=== PATIENT | female | born 1955 | race Caucasian/White ===

== ENCOUNTER 2017-09-22 08:57 | Inpatient (IN) | payer OTHER ==
--- NOTE | 2017-09-22 09:36 | PDOC ---
History of Present Illness - General Chief Complaint: Shortness of Breath Stated Complaint: SOB Time Seen by Provider: 09/22/17 09:17 History Source: Patient Exam Limitations: No Limitations - History of Present Illness Initial Comments: 09/22/17 09:36 62y F hx of COPD, seizures, hypothyroidism, htn, ?Adrenal insufficiency with recent dx of bronchitis, started on azithromycin and predinsone at urgent care, but with worsening sob, productive cough of yellowish sputum and dyspnea on exertion. Pt states her albuterol helps her for a short period of time, but as her sypmtoms have not substatially inproved she presented today. Pt endorses some nasal congestion, also notes her boss was sick a few weeks ago. No recent travel. Pt denies any abdominal pain. No fevers/chills. Pt denies any leg swelling,hemoptysis. Pt works notes the sob makes it difficult to work Pulm: Dr. Bustillo PMD: Dr. Benja Teixeira smokin pack year smoking history Past History - Past Medical History Allergies/Adverse Reactions: Allergies Allergy/AdvReac Type Severity Reaction Status Date / Time No Known Allergies Allergy Verified 09/22/17 08:58 Home Medications: Ambulatory Orders Anastrozole [Arimidex -] 1 mg PO DAILY 09/22/17 Aspirin [ASA -] 81 mg PO DAILY 09/22/17 Cyclobenzaprine HCl [Flexeril -] 10 mg PO TID 09/22/17 Divalproex Sodium [Depakote] 1,000 mg PO DAILY 09/22/17 Divalproex Sodium [Depakote] 1,500 mg PO HS 09/22/17 Escitalopram Oxalate [Lexapro -] 5 mg PO DAILY 09/22/17 Hydrocortisone [Cortef -] 5 mg PO DAILY 09/22/17 Levothyroxine Sodium [Synthroid] 137 mcg PO DAILY 09/22/17 Loratadine [Claritin] 10 mg PO DAILY 09/22/17 Omeprazole Magnesium [Prilosec Otc] 20 mg PO DAILY 09/22/17 Oxycodone HCl/Acetaminophen [Endocet 5-325 Tablet] 1 each PO TID PRN 09/22/17 Salmeterol/Fluticasone [Advair 500Mcg/50Mcg] 1 inh PO BID 09/22/17 levETIRAcetam [Keppra -] 500 mg PO BID 09/22/17 Anemia: No Asthma: No Cancer: Yes (RIGHT BREAST-DX 03/01) Cardiac Disorders: No CVA: No COPD: Yes CHF: No Dementia: No Diabetes: No GI Disorders: Yes (GERD) Disorders: Yes (URGE INCONTINENCE,CHRONIC CONSTIPATION) HTN: Yes Hypercholesterolemia: No Liver Disease: No Seizures: Yes (LAST SEIZURE 2005) Thyroid Disease: Yes (HYPOTHYROIDISM) - Surgical History Abdominal Surgery: No Appendectomy: No Cardiac Surgery: No Cholecystectomy: No Lung Surgery: No Neurologic Surgery: No Orthopedic Surgery: Yes (DISC SUGERY-1984, SPINAL FUSION) - Suicide/Smoking/Psychosocial Hx Smoking Status: Yes Smoking History: Former smoker Have you smoked in the past 12 months: Yes Number of Cigarettes Smoked Daily: 20 If you are a former smoker, when did you quit?: 01/2016 'Breaking Loose' booklet given: 04/11/16 Hx Alcohol Use: Yes (Social) Drug/Substance Use Hx: No Substance Use Type: Alcohol Hx Substance Use Treatment: No Review of Systems - Review of Systems Able to Perform ROS?: Yes Comments:: 09/22/17 10:05 Constitutional - no reported Fever, Chills, HEENT: no reported vision changes, sore throat Respiratory: +cough, sob, no reported hemoptysis Cardiac: no reported chest pain, palpitations, light headedness, leg swelling Abd/GI: no reported abd pain, nausea, vomiting, blood per rectum, melena, diarrhea : no reported dysuria, frequency, discharge Musculskelatal - no reported back pain, joint swelling skin - no reported bruising, erythema, rash neurological: no reported headache, numbness, focal weakness, tingling, ataxia, hematologic: no reported anemia, easy bruising, easy bleeding *Physical Exam - Physical Exam Comments: 09/22/17 10:07 GENERAL: The patient is awake, alert, and fully oriented, Nontoxic - in no acute distress. HEAD: Normocephalic, atraumatic. EYES: extraocular movements intact, sclera anicteric, conjunctiva clear. ENT: Normal voice, Moist mucous membranes. NECK: Normal range of motion, supple LUNGS: wheezing diffusely with occasional rhonchi, to speak complete sentences, no acute respiratory distress HEART: Regular rate and rhythm, normal S1 and S2 without murmur, rub or gallop. ABDOMEN: Soft, nontender, normoactive bowel sounds. No guarding, no rebound. EXTREMITIES: Normal range of motion, no edema. no calf tenderness, negative Homans sign NEUROLOGICAL: No facial assymetry, Normal speech, moving all 4 extremities symmetrically PSYCH: Normal mood, normal affect. SKIN: Warm, Dry, normal turgor, Heart Score/ECG Review - ECG Impressions Comment:: 09/22/17 12:51 Twelve-lead EKG was performed and reviewed by me. There is normal sinus rhythm with a normal rate. Rate of 69 The axis is normal. ED Treatment Course - LABORATORY CBC & Chemistry Diagram: 09/22/17 10:05 09/22/17 10:05 Medical Decision Making - Medical Decision Making 09/22/17 10:08 62-year-old female multiple medical problems presenting with 2-1/2 weeks of worsening shortness breath, cough productive of yellowish sputum without associated fevers, seated as an outpatient by a urgent care without improvement with course of steroids and oral antibiotics. On exam the patient does have wheezing diffusely and occasional rhonchi vitls noted for hypxoia to 88-93% on RA suspect copd exacerbation vs pna will give solumedrol, albuterol will ck labs ekg 09/22/17 11:36 cxr shows no acute infilitrates, but some signs of atelectasis labs noted, no leukocytosis, trop neg pt feeling improved with nebs pt noted hypxic to 95% case discussed with AIDAN Wood, agree with admission for inpatient for management of copd Case discussed in detail with admitting physician including history, physical exam and ancillary studies. Admitting physician has assumed care for the patient, will follow all pending diagnostics and will complete the evaluation and treatment. *DC/Admit/Observation/Transfer Diagnosis at time of Disposition: COPD with exacerbation - Discharge Dispostion Condition at time of disposition: Guarded Admit: Yes - Referrals - Patient Instructions - Post Discharge Activity
[2017-09-22] MEDS ORDERED: ALBUTEROL SO4 2.5/IPRATROPIUM 0.5 INH SOL 3 ML VIAL.NEB. NEB ONE ×3 (09:44→14:15)
[2017-09-22] MEDS ORDERED: methylPREDNISolone NA SUCC 125 MG/2 ML VIAL IVPUSH ONE (10:05)
[2017-09-22] MEDS ORDERED: ACETAMINOPHEN 325 MG TABLET (FP) PO ONE (10:05)
[2017-09-22] MEDS ORDERED: ACETAMINOPHEN 325 MG TABLET (FP) ONE (10:15)
[2017-09-22] MEDS ORDERED: methylPREDNISolone NA SUCC 125 MG/2 ML VIAL ONE (10:15)
[2017-09-22 10:40] LABS: BASO % 0.1 % (0-2.0); EOS % 0.1 % (0-4.5); HEMOGLOBIN 15.8 GM/dl (10.7-15.3); MCH 33.1 pg (25.7-33.7); MCHC 34.4 g/dl (32.0-36.0); MEAN CELL VOLUME 96.1 fl (80-96); MEAN PLT VOLUME 6.8 fl (7.5-11.1); MONO % 4.9 % (3.8-10.2); NEUT % 73.9 % (42.8-82.8); PLATELET COUNT 327 K/MM3 (134-434); RBC 4.79 M/mm3 (3.60-5.2); RDW 13.6 % (11.6-15.6)
[2017-09-22 10:48] LABS: INR 1.01 (0.82-1.09); PROTHROMBIN TIME (PATIENT) 11.3 SEC (10.2-13.0)
[2017-09-22 10:51] LABS: ALBUMIN 3.9 g/dl (3.5-5.0); ALK PHOS 47 U/L (32-92); ANION GAP 8 (8-16); BILIRUBIN,TOTAL 0.8 mg/dl (0.2-1.0); BLOOD UREA NITROGEN 14 mg/dl (7-18); CALCIUM 9.6 mg/dl (8.4-10.2); CHLORIDE 95 mmol/L (98-107); CO2 27 mmol/L (22-28); GLUCOSE,RANDOM 127 mg/dl (74-106); POTASSIUM 4.5 mmol/L (3.5-5.1); SGOT/AST 21 U/L (10-42); SGPT/ALT 15 U/L (10-40); SODIUM 130 mmol/L (136-145); TOT PROT 6.9 g/dl (6.4-8.3)
[2017-09-22 11:12] LABS: CREATININE < 0.8 mg/dl (0.6-1.3)
[2017-09-22 11:26] LABS: VENOUS PC02 42.6 mmHg (38-52); VENOUS PH 7.44 (7.32-7.42)
--- NOTE | 2017-09-22 12:41 | HP ---
CHIEF COMPLAINT: shortness of breath PCP: Dr Suárez pulm: Dr Richardson HISTORY OF PRESENT ILLNESS: Patient is a 62y F hx of COPD, seizures, right breast CA (s/p reconstruction), hypothyroidism, htn, chronic lumbar disc disease, and Adrenal insufficiency. Patient reports with increasingly shortness of breath and cough for the past 2 weeks. Patient was evaluated in urgent care 2 weeks ago and started on zithromax and prednisone. She reports ongoing shortness of breath and dyspnea upon exertion, patient was re-evaluated again at urgent care and was restarted on prednisone. She reports ongoing shortness of breath with worsening of dyspne upon exertion. 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 Smoking: quiit 25 years ago Alcohol:none Drugs: none Family History: non contributory Allergies No Known Allergies Allergy (Verified 09/22/17 08:58) HOME MEDICATIONS: Home Medications Medication Instructions Recorded Anastrozole [Arimidex -] 1 mg PO DAILY 09/22/17 Aspirin [ASA -] 81 mg PO DAILY 09/22/17 Cyclobenzaprine HCl [Flexeril -] 10 mg PO TID 09/22/17 Divalproex Sodium [Depakote] 1,000 mg PO DAILY 09/22/17 Divalproex Sodium [Depakote] 1,500 mg PO HS 09/22/17 Escitalopram Oxalate [Lexapro -] 5 mg PO DAILY 09/22/17 Hydrocortisone [Cortef -] 5 mg PO DAILY 09/22/17 Levothyroxine Sodium [Synthroid] 137 mcg PO DAILY 09/22/17 Loratadine [Claritin] 10 mg PO DAILY 09/22/17 Omeprazole Magnesium [Prilosec Otc] 20 mg PO DAILY 09/22/17 Oxycodone HCl/Acetaminophen 1 each PO TID PRN 09/22/17 [Endocet 5-325 Tablet] Salmeterol/Fluticasone [Advair 1 inh PO BID 09/22/17 500Mcg/50Mcg] levETIRAcetam [Keppra -] 500 mg PO BID 09/22/17 REVIEW OF SYSTEMS CONSTITUTIONAL: Absent: fever, chills, diaphoresis, generalized weakness, malaise, loss of appetite, weight change HEENT: Absent: rhinorrhea, nasal congestion, throat pain, throat swelling, difficulty swallowing, mouth swelling, ear pain, eye pain, visual changes CARDIOVASCULAR: Absent: chest pain, syncope, palpitations, irregular heart rate, lightheadedness , peripheral edema RESPIRATORY: Present: cough, shortness of breath, dyspnea with exertion Absent: orthopnea, wheezing, stridor, hemoptysis GASTROINTESTINAL: Absent: abdominal pain, abdominal distension, nausea, vomiting, diarrhea, constipation, melena, hematochezia GENITOURINARY: Absent: dysuria, frequency, urgency, hesitancy, hematuria, flank pain, genital pain MUSCULOSKELETAL: Absent: myalgia, arthralgia, joint swelling, back pain, neck pain SKIN: Absent: rash, itching, pallor HEMATOLOGIC/IMMUNOLOGIC: Absent: easy bleeding, easy bruising, lymphadenopathy, frequent infections ENDOCRINE: Absent: unexplained weight gain, unexplained weight loss, heat intolerance, cold intolerance NEUROLOGIC: Absent: headache, focal weakness or paresthesias, dizziness, unsteady gait, seizure, mental status changes, bladder or bowel incontinence PSYCHIATRIC: Absent: anxiety, depression, suicidal or homicidal ideation, hallucinations. PHYSICAL EXAMINATION Vital Signs - 24 hr 09/22/17 09/22/17 09/22/17 08:58 11:15 11:21 Temperature 97.9 F Pulse Rate 91 H 63 Pulse Rate [ 63 Right] Respiratory 20 20 Rate Blood Pressure 170/89 Blood Pressure 138/77 [Left Arm] O2 Sat by Pulse 93 L 96 96 Oximetry (%) GENERAL: Awake, alert, and fully oriented, in no acute distress. HEAD: Normal with no signs of trauma. EYES: Pupils equal, round and reactive to light, extraocular movements intact, sclera anicteric, conjunctiva clear. No lid lag. EARS, NOSE, THROAT: Ears normal, nares patent, oropharynx clear without exudates. Moist mucous membranes. NECK: Normal range of motion, supple without lymphadenopathy, JVD, or masses. LUNGS: Breath sounds equal, course rhonchi to apexes with mild inspiratory wheeze, diminished to bases, and no crackles. No accessory muscle use. HEART: Regular rate and rhythm, normal S1 and S2 without murmur, rub or gallop. ABDOMEN: Soft, nontender, not distended, normoactive bowel sounds, no guarding, no rebound, no masses. No hepatomegaly or splenomegaly. MUSCULOSKELETAL: Normal range of motion at all joints. No bony deformities or tenderness. No CVA tenderness. UPPER EXTREMITIES: 2+ pulses, warm, well-perfused. No cyanosis. No clubbing. No peripheral edema. LOWER EXTREMITIES: 2+ pulses, warm, well-perfused. No calf tenderness. No peripheral edema. NEUROLOGICAL: Cranial nerves II-XII intact. Normal speech. Normal gait. PSYCHIATRIC: Cooperative. Good eye contact. Appropriate mood and affect. SKIN: Warm, dry, normal turgor, no rashes or lesions noted, normal capillary refill. Laboratory Results - last 24 hr 09/22/17 09/22/17 09/22/17 10:05 10:05 10:05 WBC 10.0 D RBC 4.79 D Hgb 15.8 H D Hct 46.0 H D MCV 96.1 H MCH 33.1 MCHC 34.4 RDW 13.6 Plt Count 327 MPV 6.8 L Neutrophils % 73.9 Lymphocytes % 21.0 Monocytes % 4.9 Eosinophils % 0.1 Basophils % 0.1 PT with INR 11.3 INR 1.01 VBG pH POC VBG pCO2 POC VBG pO2 Mixed VBG HCO3 Sodium 130 L Potassium 4.5 Chloride 95 L Carbon Dioxide 27 Anion Gap 8 BUN 14 D Creatinine < 0.8 D Creat Clearance w eGFR > 60 Random Glucose 127 H Calcium 9.6 Total Bilirubin 0.8 D AST 21 D ALT 15 D Alkaline Phosphatase 47 D Creatine Kinase Troponin I Total Protein 6.9 D Albumin 3.9 D 09/22/17 09/22/17 09/22/17 10:05 10:05 10:10 WBC RBC Hgb Hct MCV MCH MCHC RDW Plt Count MPV Neutrophils % Lymphocytes % Monocytes % Eosinophils % Basophils % PT with INR INR VBG pH 7.44 H POC VBG pCO2 42.6 POC VBG pO2 46.0 Mixed VBG HCO3 28.1 H Sodium Potassium Chloride Carbon Dioxide Anion Gap BUN Creatinine Creat Clearance w eGFR Random Glucose Calcium Total Bilirubin AST ALT Alkaline Phosphatase Creatine Kinase 62 Troponin I < 0.03 Total Protein Albumin ASSESSMENT/PLAN: F/E/N - low sodium diet - replete lytes prn ppx - lovenox - ppi - scd -oob dispo: pt requires inpatient admission Problem List - Problem (1) Hypothyroidism Assessment/Plan: - pending tsh, continue home medication Code(s): E03.9 - HYPOTHYROIDISM, UNSPECIFIED Qualifiers: Hypothyroidism type: unspecified Qualified Code(s): E03.9 - Hypothyroidism , unspecified (2) GERD (gastroesophageal reflux disease) Assessment/Plan: - continue ppi Code(s): K21.9 - GASTRO-ESOPHAGEAL REFLUX DISEASE WITHOUT ESOPHAGITIS Qualifiers: Esophagitis presence: without esophagitis Qualified Code(s): K21.9 - Gastro -esophageal reflux disease without esophagitis (3) Lumbar disc disease Assessment/Plan: - continue percocet (home dose) Code(s): M51.9 - UNSP THORACIC, THORACOLUM AND LUMBOSACR INTVRT DISC DISORDER (4) COPD with exacerbation Assessment/Plan: -failed outpatient prednsione, pt remains hypoxic with wheezing, start solumedrol 40mg q6h with taper as appropriate, continue symbicort (subsitue for advair) and spiriva - keep spo2 above 92% with supplemental O2 - pending ct scan of chest, prior hx of right upper lobe pulm nodule - appreciate pulmonary input (Dr Jefferson) 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 Code(s): J44.1 - CHRONIC OBSTRUCTIVE PULMONARY DISEASE W (ACUTE) EXACERBATION (5) Breast cancer, right breast Assessment/Plan: - in remission continue armidex Code(s): C50.911 - MALIGNANT NEOPLASM OF UNSP SITE OF RIGHT FEMALE BREAST Qualifiers: Breast location: upper outer quadrant of breast (6) Hypertension Assessment/Plan: - no home medication as per patient, monitor b/p q4h Code(s): I10 - ESSENTIAL (PRIMARY) HYPERTENSION Qualifiers: Hypertension type: essential hypertension Qualified Code(s): I10 - Essential (primary) hypertension (7) Seizure disorder Assessment/Plan: - continue depakote and keppra Code(s): G40.909 - EPILEPSY, UNSP, NOT INTRACTABLE, WITHOUT STATUS EPILEPTICUS Visit type - Emergency Visit Emergency Visit: Yes ED Registration Date: 09/22/17 Care time: The patient presented to the Emergency Department on the above date and was hospitalized for further evaluation of their emergent condition. - New Patient This patient is new to me today: No - Critical Care Critical Care patient: No Hospitalist Screening - Colonoscopy Questionnaire Colonoscopy Questionnaire: Colonoscopy Questionnaire - Patient: 50 - 75 years old and never had a screening colonoscopy: No History of colon or rectal polyps, or CA: No History of IBD, Crohn's disease or UC: No History of abdominal radiation therapy as a child: No - Relative: 1 with colon or rectal CA, or polyps at age 60 or younger: No Colon or rectal CA diagnosed at age 45 or younger: No Multiple relatives with colon or rectal CA: No - Outcome: Screening Result: Negative Screen
[2017-09-22] MEDS ORDERED: CYCLOBENZAPRINE HCL 10 MG TABLET (FP) PO PRN (12:42)
[2017-09-22 13:40] LABS: URINE APPEARANCE Clear; URINE BILIRUBIN Negative (NEGATIVE); URINE BLOOD Negative (NEGATIVE); URINE GLUCOSE (UA) Negative (NEGATIVE); URINE KETONE Trace (NEGATIVE); URINE LEUK ESTERASE Negative (NEGATIVE); URINE NITRITE Negative (NEGATIVE); URINE PROTEIN Negative (NEGATIVE)
[2017-09-22 13:41] LABS: URINE COLOR YELLOW
[2017-09-22 14:13] VITALS: BMI 25.6
[2017-09-22] MEDS: methylPREDNISolone NA SUCC 40 MG/1 ML VIAL IVPUSH SCH ×2 (16:13→21:49)
[2017-09-22] MEDS ORDERED: PT OWN MED DRAWER 7, Y5N ONE ×2 (16:52→21:42)
[2017-09-22] MEDS: TIOTROPIUM BROMIDE 18 MCG/INH (DEVICE W/ 5 CAPSULES) IH SCH (17:12)
--- NOTE | 2017-09-22 17:25 | PN ---
Progress Note (short form) - Note Progress Note: Pulmonary Full consult to follow. 62y/o female with AECOPD, hx breast ca and epilepsy. History smoking. CT chest 08/05/2017: 5.7 mm RUL nodule not present on 04/11/2016 CT today-?slightly smaller RUL nodule. Agree with plan for bronchodilators, antibiotic, systemic steroids with tapering and O2 to maintain SaO2 >90 Lung nodule could be neoplastic or inflammatory. It is too small to visualize on PET scan therefore would repeat CT in three months.
[2017-09-22] MEDS: levETIRAcetam 500 MG TABLET (FP) PO SCH (21:49)
[2017-09-22] MEDS: DIVALPROEX SODIUM 500 MG TABLET E.C. PO SCH (21:49)
[2017-09-22] MEDS: BUDESONIDE/FORMETEROL FUMARATE 160/4.5 mcg INHALER IH SCH (21:49)
[2017-09-22] MEDS ORDERED: PATIENT'S OWN MEDICATION (NON-FORMULARY) (Salmeterol/Fluticasone [Advair 500mcg/50mcg -] 1 PO SCH (22:00)
[2017-09-23] MEDS: methylPREDNISolone NA SUCC 40 MG/1 ML VIAL IVPUSH SCH ×4 (02:46→21:07)
[2017-09-23] MEDS ORDERED: LEVOTHYROXINE NA 25 MCG TABLET (FP) ONE (06:26)
[2017-09-23] MEDS ORDERED: LEVOTHYROXINE NA 112 MCG TABLET (FP) ONE (06:27)
[2017-09-23] MEDS ORDERED: LEVOTHYROXINE 112 MCG, LEVOTHYROXINE 25 MCG PO SCH (07:00)
[2017-09-23 07:53] LABS: PLATELET COUNT 340 K/MM3 (134-434)
[2017-09-23 07:56] LABS: BASO % 0.9 % (0-2.0); HEMATOCRIT 48.8 % (32.4-45.2); LYMPH % 12.3 % (8-40); MCH 33.8 pg (25.7-33.7); MCHC 34.8 g/dl (32.0-36.0); MEAN CELL VOLUME 97.2 fl (80-96); MEAN PLT VOLUME 6.5 fl (7.5-11.1); MONO % 6.9 % (3.8-10.2); NEUT % 79.9 % (42.8-82.8); RBC 5.02 M/mm3 (3.60-5.2); RDW 13.7 % (11.6-15.6); WHITE BLOOD COUNT 15.5 K/mm3 (4.0-10.8)
[2017-09-23 08:26] LABS: ALBUMIN 3.8 g/dl (3.5-5.0); ALK PHOS 47 U/L (32-92); ANION GAP 8 (8-16); BILIRUBIN,TOTAL 0.5 mg/dl (0.2-1.0); BLOOD UREA NITROGEN 17 mg/dl (7-18); CALCIUM 9.7 mg/dl (8.4-10.2); CHLORIDE 98 mmol/L (98-107); CO2 27 mmol/L (22-28); CREATININE 0.5 mg/dl (0.6-1.3); GLUCOSE,RANDOM 127 mg/dl (74-106); PHOSPHOROUS 3.4 mg/dl (2.5-4.6); POTASSIUM 4.1 mmol/L (3.5-5.1); SGOT/AST 16 U/L (10-42); SGPT/ALT 13 U/L (10-40); SODIUM 133 mmol/L (136-145); TOT PROT 6.7 g/dl (6.4-8.3)
--- NOTE | 2017-09-23 08:29 | PN ---
Physical Exam: SUBJECTIVE: Patient seen and examined sitting on edge of bed. Spoke with daughter Zoey over the phone. Patient states this exacerbation is worse than previous. Has been experiencing lower extremity swelling, orthopnea, and ANNE. Denies any cardiac history. OBJECTIVE: Vital Signs Period Temp Pulse Resp BP Sys/Kim Pulse Ox Last 24 Hr 97.7 F-98.5 F 60-91 18-20 126-170/61-89 93-96 GENERAL: The patient is awake, alert, and fully oriented, in no acute distress. LUNGS: Diffuse wheezing HEART: Regular rate and rhythm, S1, S2 ABDOMEN: Soft, nontender, nondistended, normoactive bowel sounds EXTREMITIES: 2+ pulses, warm, well-perfused, no edema. NEUROLOGICAL: Cranial nerves II through XII grossly intact. Normal speech, gait not observed. Laboratory Results - last 24 hr 09/22/17 09/22/17 09/22/17 10:05 10:05 10:05 WBC 10.0 D RBC 4.79 D Hgb 15.8 H D Hct 46.0 H D MCV 96.1 H MCH 33.1 MCHC 34.4 RDW 13.6 Plt Count 327 MPV 6.8 L Neutrophils % 73.9 Lymphocytes % 21.0 Monocytes % 4.9 Eosinophils % 0.1 Basophils % 0.1 PT with INR 11.3 INR 1.01 VBG pH POC VBG pCO2 POC VBG pO2 Mixed VBG HCO3 Sodium 130 L Potassium 4.5 Chloride 95 L Carbon Dioxide 27 Anion Gap 8 BUN 14 D Creatinine < 0.8 D Creat Clearance w eGFR > 60 Random Glucose 127 H Calcium 9.6 Total Bilirubin 0.8 D AST 21 D ALT 15 D Alkaline Phosphatase 47 D Creatine Kinase Troponin I Total Protein 6.9 D Albumin 3.9 D Urine Color Urine Appearance Urine pH Ur Specific Chapman Urine Protein Urine Glucose (UA) Urine Ketones Urine Blood Urine Nitrite Urine Bilirubin Urine Urobilinogen Ur Leukocyte Esterase 09/22/17 09/22/17 09/22/17 10:05 10:05 10:10 WBC RBC Hgb Hct MCV MCH MCHC RDW Plt Count MPV Neutrophils % Lymphocytes % Monocytes % Eosinophils % Basophils % PT with INR INR VBG pH 7.44 H POC VBG pCO2 42.6 POC VBG pO2 46.0 Mixed VBG HCO3 28.1 H Sodium Potassium Chloride Carbon Dioxide Anion Gap BUN Creatinine Creat Clearance w eGFR Random Glucose Calcium Total Bilirubin AST ALT Alkaline Phosphatase Creatine Kinase 62 Troponin I < 0.03 Total Protein Albumin Urine Color Urine Appearance Urine pH Ur Specific [place] Urine Protein Urine Glucose (UA) Urine Ketones Urine Blood Urine Nitrite Urine Bilirubin Urine Urobilinogen Ur Leukocyte Esterase 09/22/17 09/23/17 13:15 07:47 WBC 15.5 H D RBC 5.02 Hgb 17.0 H Hct 48.8 H MCV 97.2 H MCH 33.8 H MCHC 34.8 RDW 13.7 Plt Count 340 MPV 6.5 L Neutrophils % 79.9 Lymphocytes % 12.3 Monocytes % 6.9 Eosinophils % 0.0 Basophils % 0.9 PT with INR INR VBG pH POC VBG pCO2 POC VBG pO2 Mixed VBG HCO3 Sodium Potassium Chloride Carbon Dioxide Anion Gap BUN Creatinine Creat Clearance w eGFR Random Glucose Calcium Total Bilirubin AST ALT Alkaline Phosphatase Creatine Kinase Troponin I Total Protein Albumin Urine Color Yellow Urine Appearance Clear Urine pH 8.0 Ur Specific [place] 1.015 Urine Protein Negative Urine Glucose (UA) Negative Urine Ketones Trace Urine Blood Negative Urine Nitrite Negative Urine Bilirubin Negative Urine Urobilinogen 1.0 Ur Leukocyte Esterase Negative Active Medications Generic Name Dose Route Start Last Admin Trade Name Freq PRN Reason Stop Dose Admin Albuterol Sulfate 1 amp 09/22/17 12:49 Ventolin 0.083% Nebulizer Soln - NEB Q4H PRN SHORTNESS OF BREATH Anastrozole 1 mg 09/23/17 10:00 Arimidex - PO DAILY [facility] Aspirin 81 mg 09/23/17 10:00 Asa - PO DAILY [facility] Budesonide/Formoterol Fumarate 2 puff 09/22/17 22:00 09/22/17 21:49 Symbicort 160/4.5mcg - IH 2 puff BID JORI Administration Cyclobenzaprine HCl 10 mg 09/22/17 12:42 Flexeril - PO TID PRN MUSCLE SPASMS Divalproex Sodium 1,000 mg 09/23/17 10:00 Depakote - PO DAILY [facility] Divalproex Sodium 1,500 mg 09/22/17 22:00 09/22/17 21:49 Depakote - PO 1,500 mg HS JORI Administration Enoxaparin Sodium 40 mg 09/23/17 10:00 Lovenox - SQ DAILY [facility] Escitalopram Oxalate 5 mg 09/23/17 10:00 Lexapro - PO DAILY [facility] Levofloxacin 750 mg in 150 mls @ 100 mls/hr 09/23/17 10:00 Levaquin 750 Mg Premixed Ivpb - IVPB DAILY JORI Levetiracetam 500 mg 09/22/17 22:00 09/22/17 21:49 Keppra - PO 500 mg BID JORI Administration Levothyroxine Sodium 112 mcg/ 137 mcg 09/23/17 07:00 09/23/17 06:33 Levothyroxine Sodium 25 mcg PO 137 mcg DAILY@0700 JORI Administration Loratadine 10 mg 09/23/17 10:00 Claritin - PO DAILY JORI Methylprednisolone Sodium Succinate 40 mg 09/22/17 15:00 09/23/17 02:46 Solu-Medrol - IVPUSH 40 mg Q6H-IV JORI Administration Oxycodone/Acetaminophen 1 combo 09/22/17 12:42 Percocet 5/325 - PO TID PRN PAIN LEVEL 6-10 Pantoprazole Sodium 20 mg 09/23/17 10:00 Protonix - PO DAILY [facility] Tiotropium [place] 1 puff 09/22/17 14:30 09/22/17 17:12 Spiriva - IH 1 puff DAILY JORI Administration ASSESSMENT/PLAN: 62 year-old female with a PMH significant for HTN, COPD, seizure disorder, hypothyroidism, and breast cancer (02/2016). Admitted for COPD exacerbation. Acute COPD exacerbation --continue IV steroids --duonebs scheduled; albuterol nebs PRN --Titrate O2 for FiO2>92% --continue levofloxacin (day #2) SOB ANNE Lower extremity edema Small pericardial effusion --BNP ordered --2011 Echo: normal LV, normal RV, trace MR, trivial pericardial effsuion --09/22 CT chest: very small pericardial effusion --Echo ordered --telemetry monitoring --cardiology consult Hypertension --BP stable --on no anti-hypertensives Seizure disorder --stable --ontinue depakote, Keppra Hypothyroidism --continue levothyroxine --thyroid studies pending Breast cancer --continue anastrozole FEN Fluids: PO intake adequate Electrolytes: replete as indicated Nutrition: low sodium DVT prophylaxis: lovenox, oob, ambulation Dispo: continues to require inpatient care. Full code. Visit type - Emergency Visit Emergency Visit: Yes ED Registration Date: 09/22/17 Care time: The patient presented to the Emergency Department on the above date and was hospitalized for further evaluation of their emergent condition. - New Patient This patient is new to me today: Yes Date on this admission: 09/23/17 - Critical Care Critical Care patient: No
[2017-09-23] MEDS ORDERED: PT OWN MED DRAWER 7, Y5N ONE ×2 (09:22→21:03)
[2017-09-23] MEDS: BUDESONIDE/FORMETEROL FUMARATE 160/4.5 mcg INHALER IH SCH ×2 (09:42→21:07)
[2017-09-23] MEDS: TIOTROPIUM BROMIDE 18 MCG/INH (DEVICE W/ 5 CAPSULES) IH SCH (09:43)
[2017-09-23] MEDS: ENOXAPARIN NA (PORCINE) 40 MG/0.4 ML DISP.SYRIN SQ SCH (09:44)
[2017-09-23] MEDS: DIVALPROEX SODIUM 500 MG TABLET E.C. PO SCH ×2 (09:44→21:06)
[2017-09-23] MEDS: ASPIRIN 81 MG CHEWABLE TABLETS PO SCH (09:45)
[2017-09-23] MEDS: PANTOPRAZOLE 20 MG TABLET (FP) PO SCH (09:45)
[2017-09-23] MEDS: ESCITALOPRAM OXALATE 10 MG TABLET (FP) PO SCH (09:45)
[2017-09-23] MEDS: ANASTROZOLE 1 MG TABLET PO SCH (09:45)
[2017-09-23] MEDS: LORATADINE 10 MG TABLET PO SCH (09:45)
[2017-09-23] MEDS: levETIRAcetam 500 MG TABLET (FP) PO SCH ×2 (09:45→21:07)
[2017-09-23] MEDS ORDERED: PATIENT'S OWN MEDICATION (NON-FORMULARY) (Levothyroxine Sodium [Synthroid] 137 MCG) PO SCH (10:00)
[2017-09-23] MEDS ORDERED: PATIENT'S OWN MEDICATION (NON-FORMULARY) (Omeprazole Magnesium [Prilosec Otc] 20 MG) PO SCH (10:00)
[2017-09-23] MEDS ORDERED: PATIENT'S OWN MEDICATION (NON-FORMULARY) (Escitalopram Oxalate [Lexapro -] 5 MG) PO SCH (10:00)
[2017-09-23] MEDS: ALBUTEROL SO4 2.5/IPRATROPIUM 0.5 INH SOL 3 ML VIAL.NEB. NEB SCH ×2 (14:30→21:11)
[2017-09-24] MEDS: methylPREDNISolone NA SUCC 40 MG/1 ML VIAL IVPUSH SCH ×4 (03:35→21:20)
[2017-09-24] MEDS: LEVOTHYROXINE NA 112 MCG TABLET (FP) PO SCH (06:36)
[2017-09-24] MEDS: ALBUTEROL SO4 2.5/IPRATROPIUM 0.5 INH SOL 3 ML VIAL.NEB. NEB SCH ×3 (08:36→20:16)
[2017-09-24] MEDS ORDERED: PT OWN MED DRAWER 7, Y5N ONE (09:20)
[2017-09-24] MEDS: ANASTROZOLE 1 MG TABLET PO SCH (09:42)
[2017-09-24] MEDS: ASPIRIN 81 MG CHEWABLE TABLETS PO SCH (09:44)
[2017-09-24] MEDS: LORATADINE 10 MG TABLET PO SCH (09:44)
[2017-09-24] MEDS: DIVALPROEX SODIUM 500 MG TABLET E.C. PO SCH ×2 (09:44→21:18)
[2017-09-24] MEDS: levETIRAcetam 500 MG TABLET (FP) PO SCH ×2 (09:45→21:19)
[2017-09-24] MEDS: ESCITALOPRAM OXALATE 10 MG TABLET (FP) PO SCH (09:45)
[2017-09-24] MEDS: ENOXAPARIN NA (PORCINE) 40 MG/0.4 ML DISP.SYRIN SQ SCH (09:46)
[2017-09-24] MEDS: TIOTROPIUM BROMIDE 18 MCG/INH (DEVICE W/ 5 CAPSULES) IH SCH (09:46)
[2017-09-24] MEDS: PANTOPRAZOLE 20 MG TABLET (FP) PO SCH (09:46)
[2017-09-24] MEDS: BUDESONIDE/FORMETEROL FUMARATE 160/4.5 mcg INHALER IH SCH ×2 (09:46→21:19)
--- NOTE | 2017-09-24 11:15 | PN ---
Physical Exam: SUBJECTIVE: Patient seen and examined. Feels significantly better. Has been walking the hallways with minimal SOB. OBJECTIVE: Vital Signs Period Temp Pulse Resp BP Sys/Kim Pulse Ox Last 24 Hr 97.9 F-98.3 F 58-88 18-20 125-139/60-63 95-98 GENERAL: The patient is awake, alert, and fully oriented, in no acute distress. LUNGS: Diffuse wheezing HEART: Regular rate and rhythm, S1, S2 ABDOMEN: Soft, nontender, nondistended, normoactive bowel sounds EXTREMITIES: 2+ pulses, warm, well-perfused, no edema. NEUROLOGICAL: Cranial nerves II through XII grossly intact. Normal speech, gait not observed. Laboratory Results - last 24 hr 09/23/17 09/23/17 07:47 07:48 B-Natriuretic Peptide 396.77 H TSH 0.33 L Free T4 1.43 Active Medications Generic Name Dose Route Start Last Admin Trade Name Freq PRN Reason Stop Dose Admin Albuterol Sulfate 1 amp 09/22/17 12:49 Ventolin 0.083% Nebulizer Soln - NEB Q4H PRN SHORTNESS OF BREATH Albuterol/Ipratropium 1 amp 09/23/17 14:00 09/24/17 08:36 Duoneb - NEB 1 amp RTID JORI Administration Anastrozole 1 mg 09/23/17 10:00 09/24/17 09:42 Arimidex - PO 1 mg DAILY JORI Administration Aspirin 81 mg 09/23/17 10:00 09/24/17 09:44 Asa - PO 81 mg DAILY JORI Administration Budesonide/Formoterol Fumarate 2 puff 09/22/17 22:00 09/24/17 09:46 Symbicort 160/4.5mcg - IH 2 puff BID JORI Administration Cyclobenzaprine HCl 10 mg 09/22/17 12:42 Flexeril - PO TID PRN MUSCLE SPASMS Divalproex Sodium 1,000 mg 09/23/17 10:00 09/24/17 09:44 Depakote - PO 1,000 mg DAILY JORI Administration Divalproex Sodium 1,500 mg 09/22/17 22:00 09/23/17 21:06 Depakote - PO 1,500 mg HS JORI Administration Enoxaparin Sodium 40 mg 09/23/17 10:00 09/24/17 09:46 Lovenox - SQ 40 mg DAILY JORI Administration Escitalopram Oxalate 5 mg 09/23/17 10:00 09/24/17 09:45 Lexapro - PO 5 mg DAILY JORI Administration Levofloxacin 750 mg in 150 mls @ 100 mls/hr 09/23/17 10:00 09/24/17 09:45 Levaquin 750 Mg Premixed Ivpb - IVPB 100 mls/hr DAILY JORI Administration Levetiracetam 500 mg 09/22/17 22:00 09/24/17 09:45 Keppra - PO 500 mg BID JORI Administration Levothyroxine Sodium 125 mcg 09/23/17 12:12 09/24/17 06:36 Synthroid - PO 125 mcg DAILY@0700 JORI Administration Loratadine 10 mg 09/23/17 10:00 09/24/17 09:44 Claritin - PO 10 mg DAILY JORI Administration Methylprednisolone Sodium Succinate 40 mg 09/22/17 15:00 09/24/17 08:36 Solu-Medrol - IVPUSH 40 mg Q6H-IV JORI Administration Oxycodone/Acetaminophen 1 combo 09/22/17 12:42 Percocet 5/325 - PO TID PRN PAIN LEVEL 6-10 Pantoprazole Sodium 20 mg 09/23/17 10:00 09/24/17 09:46 Protonix - PO 20 mg DAILY JORI Administration Tiotropium [place] 1 puff 09/22/17 14:30 09/24/17 09:46 Spiriva - IH 1 puff DAILY JORI Administration ASSESSMENT/PLAN: 62 year-old female with a PMH significant for HTN, COPD, seizure disorder, hypothyroidism, and breast cancer (02/2016). Admitted for COPD exacerbation. Small pericardial effusion. Acute COPD exacerbation --continue IV steroids --duonebs scheduled; albuterol nebs PRN --Titrate O2 for FiO2>92% --continue levofloxacin (day #3) SOB ANNE Lower extremity edema Small pericardial effusion --BNP unremarkable --2011 Echo: normal LV, normal RV, trace MR, trivial pericardial effusion --09/22/17 CT chest: very small pericardial effusion --Echo ordered --telemetry monitoring --cardiology consult Hypertension --BP stable --on no anti-hypertensives Seizure disorder --stable --continue depakote, Keppra Hypothyroidism --TSH low, free T4 low --decrease levothyroxine to 125mcg; will need outpatient followup testing in 6 weeks Breast cancer --continue anastrozole FEN Fluids: PO intake adequate Electrolytes: replete as indicated Nutrition: low sodium DVT prophylaxis: lovenox, oob, ambulation Dispo: continues to require inpatient care. Full code. Visit type - Emergency Visit Emergency Visit: Yes ED Registration Date: 09/22/17 Care time: The patient presented to the Emergency Department on the above date and was hospitalized for further evaluation of their emergent condition. - New Patient This patient is new to me today: No - Critical Care Critical Care patient: No
--- NOTE | 2017-09-24 20:47 | EKG ---
Test Reason : Blood Pressure : / mmHG Vent. Rate : 069 BPM Atrial Rate : 069 BPM P-R Int : 126 ms QRS Dur : 080 ms QT Int : 414 ms P-R-T Axes : 085 081 051 degrees QTc Int : 443 ms NORMAL SINUS RHYTHM NORMAL ECG WHEN COMPARED WITH ECG OF 30-NOV-2014 18:45, VENT. RATE HAS DECREASED BY 34 BPM Confirmed by YVONNE FORDE MD ([id number]) on 09/24/2017 8:47:19 PM Referred By: ELISSA Confirmed By:YVONNE FORDE MD
--- NOTE | 2017-09-24 20:57 | CON.CARD ---
Consult Consult Specialty:: Cardiology Referred by:: Hospitalist Reason for Consultation:: Cardiac evaluation - History of Present Illness Chief Complaint: Shortness of breath History of Present Illness: Patient is a 62 year old female with underlying historyh of COPD (currently followed by Dr. Herman), seizure disorder, breast CA s/p reconstruction surgery, hypothyroidism, hypertension and adrenal insufficiency who presented with shortness of breath and cough. She was evaluated in the urgent care center and was prescribed antibiotic and steroids. She presented to the urgent care center on 2 separate occasion and was given steroids, however, her symptoms continued prompting her to come in toe the hospital. She complained of shortness of breath on exertion. She denies chest pain or palpitations. She denies paroxysmal nocturnal dyspnea or orthopnea. She denies fever or chills. She denies headache or lightheadedness. She denies nausea, vomiting, diarrhea or abdominal pain. She feels better today. Other history includes pulmonary nodule. 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) Cardio/Vascular: Yes: HTN Pulmonary: Yes: COPD Gastrointestinal: Yes: GERD Psych: Yes: Depression Endocrine: Yes: Hypothyroidism - Past Surgical History Past Surgical History: Yes: Laminectomy Additional Surgical History: Breast reconstructive surgery - Alcohol/Substance Use Hx Alcohol Use: Yes (Social) - Smoking History Smoking history: Former smoker Have you smoked in the past 12 months: Yes Aproximately how many cigarettes per day: 20 If you are a former smoker, when did you quit?: 01/2016 - Social History History of Recent Travel: No Home Medications - Allergies Allergies/Adverse Reactions: Allergies Allergy/AdvReac Type Severity Reaction Status Date / Time No Known Allergies Allergy Verified 09/22/17 08:58 - Home Medications Home Medications: Ambulatory Orders Anastrozole [Arimidex -] 1 mg PO DAILY 09/22/17 Aspirin [ASA -] 81 mg PO DAILY 09/22/17 Cyclobenzaprine HCl [Flexeril -] 10 mg PO TID 09/22/17 Divalproex Sodium [Depakote] 1,000 mg PO DAILY 09/22/17 Divalproex Sodium [Depakote] 1,500 mg PO HS 09/22/17 Escitalopram Oxalate [Lexapro -] 5 mg PO DAILY 09/22/17 Hydrocortisone [Cortef -] 5 mg PO DAILY 09/22/17 Levothyroxine Sodium [Synthroid] 137 mcg PO DAILY 09/22/17 Loratadine [Claritin] 10 mg PO DAILY 09/22/17 Omeprazole Magnesium [Prilosec Otc] 20 mg PO DAILY 09/22/17 Oxycodone HCl/Acetaminophen [Endocet 5-325 Tablet] 1 each PO TID PRN 09/22/17 Salmeterol/Fluticasone [Advair 500Mcg/50Mcg] 1 inh PO BID 09/22/17 levETIRAcetam [Keppra -] 500 mg PO BID 09/22/17 Family Disease History - Family Disease History Family Disease History: CA: Father (gastric CA), Mother (Brain CA) Review of Systems - Review of Systems Constitutional: denies: Chills, Fever Cardiovascular: reports: Shortness of Breath. denies: Chest Pain, Palpitations Respiratory: reports: Cough, SOB, SOB on Exertion. denies: Hemoptysis, Orthopnea, PND Gastrointestinal: denies: Abdominal Pain, Constipation, Diarrhea, Melena, Nausea , Rectal Bleeding, Vomiting Neurological: reports: Seizure. denies: Dizziness, Headache, Syncope Vital Signs: Vital Signs Temperature 98.3 F 09/24/17 14:13 Pulse Rate 69 09/24/17 14:13 Respiratory Rate 18 09/24/17 19:53 Blood Pressure 147/69 09/24/17 14:13 O2 Sat by Pulse Oximetry (%) 94 L 09/24/17 20:27 Constitutional: Yes: Well Nourished Eyes: Yes: PERRL HENT: Yes: Atraumatic Neck: Yes: Supple Respiratory: Yes: Diminished Gastrointestinal: Yes: Normal Bowel Sounds, Soft. No: Tenderness Cardiovascular: Yes: Regular Rate and Rhythm JVD: No Carotid Bruit: No PMI: Non-Displaced Heart Sounds: Yes: S1, S2. No: Gallop Edema: No - Other Data Labs, Other Data: CBC, BMP 09/23/17 07:47 09/23/17 07:47 INR, PTT INR 1.01 (0.82-1.09) 09/22/17 10:05 Troponin, BNP 09/23/17 07:48 B-Natriuretic Peptide 396.77 H Normal sinus rhythm with no ST-T abnormality Echo: Pending Imaging - Results Chest X-ray: Report Reviewed (Pulmonary nodule) Cat Scan: Report Reviewed (Chest CT with pulmonary nodule ? small pericardial effusion) EKG: Report Reviewed Problem List - Problems (1) COPD with exacerbation Code(s): J44.1 - CHRONIC OBSTRUCTIVE PULMONARY DISEASE W (ACUTE) EXACERBATION (2) GERD (gastroesophageal reflux disease) Code(s): K21.9 - GASTRO-ESOPHAGEAL REFLUX DISEASE WITHOUT ESOPHAGITIS Qualifiers: Esophagitis presence: without esophagitis Qualified Code(s): K21.9 - Gastro -esophageal reflux disease without esophagitis (3) Hypertension Code(s): I10 - ESSENTIAL (PRIMARY) HYPERTENSION Qualifiers: Hypertension type: essential hypertension Qualified Code(s): I10 - Essential (primary) hypertension (4) Hypothyroidism Code(s): E03.9 - HYPOTHYROIDISM, UNSPECIFIED Qualifiers: Hypothyroidism type: unspecified Qualified Code(s): E03.9 - Hypothyroidism , unspecified (5) Seizure disorder Code(s): G40.909 - EPILEPSY, UNSP, NOT INTRACTABLE, WITHOUT STATUS EPILEPTICUS (6) Breast cancer, right breast Code(s): C50.911 - MALIGNANT NEOPLASM OF UNSP SITE OF RIGHT FEMALE BREAST Qualifiers: Breast location: upper outer quadrant of breast Qualified Code(s): C50.411 - Malignant neoplasm of upper-outer quadrant of right female breast Assessment/Plan 1. Shortness of breath due to COPD exacerbation 2. Pulmonary nodule 3. Leukocytosis due to steroid use 4. Hypertension 5. Hypothyroidism 6. History of breast cancer post reconstructive surgery 7. Seizure disorder PLAN: 1. Transthoracic echocardiography to assess LV/RV, pericardium and valvular function 2. Continue bronchodilator, steroid taper and O2 3. Continue thyroid replacement therapy 4. Currently on ASA which may be continued 5. If remains hypertensive, may need to initiate therapy 6. Empiric antibiotic coverage Further plans are to follow Rk Huston MD
[2017-09-25] MEDS: methylPREDNISolone NA SUCC 40 MG/1 ML VIAL IVPUSH SCH ×3 (03:25→20:37)
[2017-09-25] MEDS: ALBUTEROL SO4 2.5/IPRATROPIUM 0.5 INH SOL 3 ML VIAL.NEB. NEB SCH (08:41)
--- NOTE | 2017-09-25 08:52 | PN ---
Physical Exam: SUBJECTIVE: Patient seen and examined, reports ongoing shortness of breath and dyspnea upon exertion, unable to speak full sentences, patient is requesting Dr Herman for pulmonary consult. OBJECTIVE:Patient is a 62y F hx of COPD, seizures, right breast CA (s/p reconstruction), hypothyroidism, htn, chronic lumbar disc disease, seizure disorder, and Adrenal insufficiency. Patient was admitted from the emergency department for acute copd exacerbation. Vital Signs Period Temp Pulse Resp BP Sys/Kim Pulse Ox Last 24 Hr 97.8 F-98.3 F 66-79 17-20 141-150/64-78 94-97 GENERAL: The patient is awake, alert, and fully oriented, in no acute distress. HEAD: Normal with no signs of trauma. EYES: PERRL, extraocular movements intact, sclera anicteric, conjunctiva clear. No ptosis. ENT: Ears normal, nares patent, oropharynx clear without exudates, moist mucous membranes. NECK: Trachea midline, full range of motion, supple. LUNGS: Breath sounds equal, diffuse inspiratory wheeze throughout, diminished to base, RR 24, unable to speak full sentences, no crackles, no accessory muscle use. HEART: Regular rate and rhythm, S1, S2 without murmur, rub or gallop. ABDOMEN: Soft, nontender, nondistended, normoactive bowel sounds, no guarding, no rebound, no hepatosplenomegaly, no masses. EXTREMITIES: 2+ pulses, warm, well-perfused, no edema. NEUROLOGICAL: Cranial nerves II through XII grossly intact. Normal speech, gait not observed. PSYCH: Normal mood, normal affect. SKIN: Warm, dry, normal turgor, no rashes or lesions noted Active Medications Generic Name Dose Route Start Last Admin Trade Name Freq PRN Reason Stop Dose Admin Albuterol Sulfate 1 amp 09/22/17 12:49 Ventolin 0.083% Nebulizer Soln - NEB Q4H PRN SHORTNESS OF BREATH Albuterol Sulfate 1 amp 09/25/17 09:00 Ventolin 0.083% Nebulizer Soln - NEB 09/25/17 09:01 ONCE ONE Albuterol/Ipratropium 1 amp 09/23/17 14:00 09/25/17 08:41 Duoneb - NEB 1 amp RTID JORI Administration Anastrozole 1 mg 09/23/17 10:00 09/24/17 09:42 Arimidex - PO 1 mg DAILY JORI Administration Aspirin 81 mg 09/23/17 10:00 09/24/17 09:44 Asa - PO 81 mg DAILY JORI Administration Budesonide/Formoterol Fumarate 2 puff 09/22/17 22:00 09/24/17 21:19 Symbicort 160/4.5mcg - IH 2 puff BID JORI Administration Cyclobenzaprine HCl 10 mg 09/22/17 12:42 Flexeril - PO TID PRN MUSCLE SPASMS Divalproex Sodium 1,000 mg 09/23/17 10:00 09/24/17 09:44 Depakote - PO 1,000 mg DAILY JORI Administration Divalproex Sodium 1,500 mg 09/22/17 22:00 09/24/17 21:18 Depakote - PO 1,500 mg HS [facility] Administration Enoxaparin Sodium 40 mg 09/23/17 10:00 09/24/17 09:46 Lovenox - SQ 40 mg DAILY [facility] Administration Escitalopram Oxalate 5 mg 09/23/17 10:00 09/24/17 09:45 Lexapro - PO 5 mg DAILY [facility] Administration Levofloxacin 750 mg in 150 mls @ 100 mls/hr 09/23/17 10:00 09/24/17 09:45 Levaquin 750 Mg Premixed Ivpb - IVPB 100 mls/hr DAILY [facility] Administration Levetiracetam 500 mg 09/22/17 22:00 09/24/17 21:19 Keppra - PO 500 mg BID [facility] Administration Levothyroxine Sodium 125 mcg 09/23/17 12:12 09/24/17 06:36 Synthroid - PO 125 mcg DAILY@0700 [facility] Administration Loratadine 10 mg 09/23/17 10:00 09/24/17 09:44 Claritin - PO 10 mg DAILY [facility] Administration Methylprednisolone Sodium Succinate 40 mg 09/22/17 15:00 09/25/17 03:25 Solu-Medrol - IVPUSH 40 mg Q6H-IV [facility] Administration Oxycodone/Acetaminophen 1 combo 09/22/17 12:42 Percocet 5/325 - PO TID PRN PAIN LEVEL 6-10 Pantoprazole Sodium 20 mg 09/23/17 10:00 09/24/17 09:46 Protonix - PO 20 mg DAILY JORI Administration Tiotropium [place] 1 puff 09/22/17 14:30 09/24/17 09:46 Spiriva - IH 1 puff DAILY JORI Administration Microbiology 09/22/17 10:10 Blood - Peripheral Venous Blood Culture - Preliminary NO GROWTH OBTAINED AFTER 72 HOURS, INCUBATION TO CONTINUE FOR 2 DAYS. 09/22/17 10:05 Blood - Peripheral Venous Blood Culture - Preliminary NO GROWTH OBTAINED AFTER 72 HOURS, INCUBATION TO CONTINUE FOR [address] of chest: very small pericardial effusion, 0.5cm right upper lobe pulmonary nodule, centrilolbular emphysema ASSESSMENT/PLAN: 1) Acute COPD exacerbation - wheezing noted on exam, continue solumedrol 40mg q6h, start brovana, continue spriva with albuterol prn - continue levaquin day 4 for empiric coverage - keep spo2 above 92% with supplemental O2 2) cardiology - 2011 Echo: normal LV, normal RV, trace MR, trivial pericardial effusion pending echo today hypertension -b/p at goal, strict monitoring 3) endo Seizure disorder - stable, continue depakote, Keppra Hypothyroidism -decreased levothyroxine to 125mcg, will need outpatient followup testing in 6 weeks 4) heme/onc Breast cancer - continue anastrozole FEN Fluids: PO intake adequate Electrolytes: replete as indicated Nutrition: low sodium DVT prophylaxis: lovenox, oob, ambulation Dispo: continues to require inpatient care. Full code. Problem List - Problems (1) Hypothyroidism Code(s): E03.9 - HYPOTHYROIDISM, UNSPECIFIED Qualifiers: Hypothyroidism type: unspecified Qualified Code(s): E03.9 - Hypothyroidism , unspecified (2) GERD (gastroesophageal reflux disease) Code(s): K21.9 - GASTRO-ESOPHAGEAL REFLUX DISEASE WITHOUT ESOPHAGITIS Qualifiers: Esophagitis presence: without esophagitis Qualified Code(s): K21.9 - Gastro -esophageal reflux disease without esophagitis (3) Lumbar disc disease Code(s): M51.9 - UNSP THORACIC, THORACOLUM AND LUMBOSACR INTVRT DISC DISORDER (4) COPD with exacerbation Code(s): J44.1 - CHRONIC OBSTRUCTIVE PULMONARY DISEASE W (ACUTE) EXACERBATION (5) Breast cancer, right breast Code(s): C50.911 - MALIGNANT NEOPLASM OF UNSP SITE OF RIGHT FEMALE BREAST Qualifiers: Breast location: upper outer quadrant of breast (6) Hypertension Code(s): I10 - ESSENTIAL (PRIMARY) HYPERTENSION Qualifiers: Hypertension type: essential hypertension Qualified Code(s): I10 - Essential (primary) hypertension (7) Seizure disorder Code(s): G40.909 - EPILEPSY, UNSP, NOT INTRACTABLE, WITHOUT STATUS EPILEPTICUS Visit type - Emergency Visit Emergency Visit: Yes ED Registration Date: 09/22/17 Care time: The patient presented to the Emergency Department on the above date and was hospitalized for further evaluation of their emergent condition. - New Patient This patient is new to me today: No - Critical Care Critical Care patient: No - Discharge Referral Referred to [facility] No
[2017-09-25] MEDS ORDERED: ALBUTEROL SO4 0.083% IH SOL 2.5 MG/3 ML VIAL.NEB. NEB ONE (09:00)
[2017-09-25] MEDS ORDERED: PT OWN MED DRAWER 7, Y5N ONE ×3 (10:04→21:04)
[2017-09-25] MEDS: POLYETHYLENE GLYCOL 3350 119 GM BTL PO SCH (10:15)
[2017-09-25] MEDS: ASPIRIN 81 MG CHEWABLE TABLETS PO SCH (10:21)
[2017-09-25] MEDS: DIVALPROEX SODIUM 500 MG TABLET E.C. PO SCH ×2 (10:21→21:26)
[2017-09-25] MEDS: ESCITALOPRAM OXALATE 10 MG TABLET (FP) PO SCH (10:21)
[2017-09-25] MEDS: ANASTROZOLE 1 MG TABLET PO SCH (10:21)
[2017-09-25] MEDS: LORATADINE 10 MG TABLET PO SCH (10:21)
[2017-09-25] MEDS: levETIRAcetam 500 MG TABLET (FP) PO SCH ×2 (10:22→21:26)
[2017-09-25] MEDS: PANTOPRAZOLE 20 MG TABLET (FP) PO SCH (10:22)
[2017-09-25] MEDS: TIOTROPIUM BROMIDE 18 MCG/INH (DEVICE W/ 5 CAPSULES) IH SCH (10:22)
[2017-09-25] MEDS: ENOXAPARIN NA (PORCINE) 40 MG/0.4 ML DISP.SYRIN SQ SCH (10:23)
--- NOTE | 2017-09-25 11:09 | PN ---
Progress Note (short form) - Note Progress Note: PULMONARY CONSULTATION DICTATED 09/25/17 IMP COPD EXACERBATION RUL NODULE H/O BREAST CA S/P LUMPECTOMY, S/P RT HYPOTHYROID ADRENAL INSUFFICIENCY H/O SEIZURE DISORDER PLAN IV STEROIDS INHALED BRONCHODILATORS O2 F/U CHEST CT 3-[address] BURNS
[2017-09-25] MEDS: BUDESONIDE/FORMETEROL FUMARATE 160/4.5 mcg INHALER IH SCH ×2 (11:55→21:27)
--- NOTE | 2017-09-25 15:33 | PN ---
Progress Note, Physician History of Present Illness: Dyspnea, nonproductive cough, wheeze improving. - Current Medication List Current Medications: Active Medications Albuterol Sulfate (Ventolin 0.083% Nebulizer Soln -) 1 amp NEB Q4H PRN PRN Reason: SHORTNESS OF BREATH Anastrozole (Arimidex -) 1 mg PO DAILY [facility] Last Admin: 09/25/17 10:21 Dose: 1 mg Aspirin (Asa -) 81 mg PO DAILY [facility] Last Admin: 09/25/17 10:21 Dose: 81 mg Budesonide/Formoterol Fumarate (Symbicort 160/4.5mcg -) 2 puff IH BID [facility] Last Admin: 09/25/17 11:55 Dose: 2 puff Cyclobenzaprine HCl (Flexeril -) 10 mg PO TID PRN PRN Reason: MUSCLE SPASMS Divalproex Sodium (Depakote -) 1,000 mg PO DAILY [facility] Last Admin: 09/25/17 10:21 Dose: 1,000 mg Divalproex Sodium (Depakote -) 1,500 mg PO HS [facility] Last Admin: 09/24/17 21:18 Dose: 1,500 mg Enoxaparin Sodium (Lovenox -) 40 mg SQ DAILY [facility] Last Admin: 09/25/17 10:23 Dose: 40 mg Escitalopram Oxalate (Lexapro -) 5 mg PO DAILY [facility] Last Admin: 09/25/17 10:21 Dose: 5 mg Levofloxacin (Levaquin 750 Mg Premixed Ivpb -) 750 mg in 150 mls @ 100 mls/hr IVPB DAILY [facility] Last Admin: 09/25/17 10:22 Dose: 100 mls/hr Levetiracetam (Keppra -) 500 mg PO BID [facility] Last Admin: 09/25/17 10:22 Dose: 500 mg Levothyroxine Sodium (Synthroid -) 125 mcg PO DAILY@0700 [facility] Last Admin: 09/24/17 06:36 Dose: 125 mcg Loratadine (Claritin -) 10 mg PO DAILY [facility] Last Admin: 09/25/17 10:21 Dose: 10 mg Methylprednisolone Sodium Succinate (Solu-Medrol -) 40 mg IVPUSH Q6H-IV [facility] Last Admin: 09/25/17 09:05 Dose: 40 mg Oxycodone/Acetaminophen (Percocet 5/325 -) 1 combo PO TID PRN PRN Reason: PAIN LEVEL 6-10 Pantoprazole Sodium (Protonix -) 20 mg PO DAILY [facility] Last Admin: 09/25/17 10:22 Dose: 20 mg Polyethylene Glycol (Miralax (For Daily Use) -) 17 gm PO DAILY [facility] Last Admin: 09/25/17 10:15 Dose: 17 gm Tiotropium [place] (Spiriva -) 1 puff IH DAILY [facility] Last Admin: 09/25/17 10:22 Dose: 1 puff - Objective Vital Signs: Vital Signs Temperature 99.1 F 09/25/17 14:00 Pulse Rate 72 09/25/17 14:00 Respiratory Rate 18 09/25/17 14:00 Blood Pressure 154/75 09/25/17 14:00 O2 Sat by Pulse Oximetry (%) 96 09/25/17 14:00 Constitutional: Yes: No Distress, Calm Neck: Yes: Supple Cardiovascular: Yes: Regular Rate and Rhythm Respiratory: Yes: Regular, Diminished, Wheezes Gastrointestinal: Yes: Normal Bowel Sounds, Soft Edema: No Labs: CBC, BMP 09/23/17 07:47 09/23/17 07:47 INR, PTT INR 1.01 (0.82-1.09) 09/22/17 10:05 Problem List - Problems (1) COPD with exacerbation Code(s): J44.1 - CHRONIC OBSTRUCTIVE PULMONARY DISEASE W (ACUTE) EXACERBATION (2) Hypertension Code(s): I10 - ESSENTIAL (PRIMARY) HYPERTENSION Qualifiers: Hypertension type: essential hypertension Qualified Code(s): I10 - Essential (primary) hypertension (3) Hypothyroidism Code(s): E03.9 - HYPOTHYROIDISM, UNSPECIFIED Qualifiers: Hypothyroidism type: unspecified Qualified Code(s): E03.9 - Hypothyroidism , unspecified (4) Seizure disorder Code(s): G40.909 - EPILEPSY, UNSP, NOT INTRACTABLE, WITHOUT STATUS EPILEPTICUS (5) Nodule of right lung Code(s): R91.1 - SOLITARY PULMONARY NODULE Assessment/Plan 1. Shortness of breath due to COPD exacerbation 2. RUL Pulmonary nodule 3. Leukocytosis due to steroid use 4. Hypertension 5. Hypothyroidism 6. History of breast cancer post reconstructive surgery, XRT 7. Seizure disorder PLAN: 1. Transthoracic echocardiography to assess LV/RV, pericardium and valvular function 2. Continue bronchodilator, IV steroid taper with GI protection and O2 3. Continue thyroid replacement therapy 4. Continue on ASA 81 qd 5. If remains hypertensive, may need to initiate therapy 6. Empiric antibiotic coverage, DVT prophylaxis 7. F/u chest CT 3-4 months
[2017-09-25] MEDS ORDERED: ARFORMOTEROL TARTRATE 15 MCG/2 ML VIAL NEB SCH (20:00)
[2017-09-25] MEDS: ALBUTEROL SO4 0.083% IH SOL 2.5 MG/3 ML VIAL.NEB. NEB PRN (20:37)
--- NOTE | 2017-09-25 21:10 | CONS ---
PULMONARY CONSULTATION DATE OF CONSULTATION: 09/25/2017 REFERRING PHYSICIAN: Laurel Wood NP HISTORY OF PRESENT ILLNESS: The patient is a 62-year-old white female known to me from previous office visit with past medical history of COPD, maintained on inhaled bronchodilators; history of seizures; history of breast CA, status post right lumpectomy, status post reconstruction; hypothyroidism; hypertension; chronic lumbar disease; adrenal insufficiency; history of tobacco use, quit a few years ago; admitted to [facility] with complaint of increasing shortness of breath and cough for 2 weeks' duration. Patient apparently, prior to admission, was evaluated at [facility]. She was started on Zithromax and prednisone with some improvement. Then, when the steroids were being tapered, she started feeling increasing shortness of breath and dyspnea on exertion, also had a cough that was nonproductive. Denied any fevers, chills, nausea, vomiting, or diaphoresis. She was sent to the emergency room with the above. In the ER, she was noted to be in moderate distress. She was started on inhaled bronchodilators, IV steroids, and transferred up to the floor for further management. Patient underwent a CT scan of the chest on this admission, which revealed evidence of a 5-mm nodule in her right upper lobe anterior segment, noncalcified. It was not present in 2016. Otherwise, there was no evidence of any infiltrates and/or effusions, but there was evidence for small pericardial effusion. Patient earlier today started feeling again increasing shortness of breath and bronchospasm. She was treated with inhaled bronchodilators with good clinical response. Patient denies any hemoptysis. Denied any weight loss or night sweats. There is no history of recent travel. There is no history of occupational exposures to chemicals or fumes. PAST MEDICAL HISTORY: Again includes COPD; breast CA, status post lumpectomy and lymph node dissection, status post RT; hypothyroidism; hypertension; chronic lumbar disk disease; and adrenal insufficiency. REVIEW OF SYSTEMS: Positive shortness of breath, positive cough. No fever. No chills. No chest pain. No palpitations. No hemoptysis. No abdominal pain. CURRENT MEDICATIONS: Include Solu-Medrol 40 q.6, Levaquin, Lovenox, Depakote, Keppra, Spiriva, Arimidex, albuterol, Brovana, cyclobenzaprine, aspirin, Percocet, pantoprazole, Claritin, and Synthroid. PHYSICAL EXAMINATION: General: The patient is a well-developed, well-nourished female, awake, alert, in no acute distress. Vital Signs: She is afebrile. Blood pressure is 141/78, respiratory rate is 20, O2 saturation is 97% on 2 L nasal cannula. HEENT: Normocephalic, atraumatic. Neck: Supple. Heart: Regular. S1, S2. Chest: Scattered bilateral wheezes. Abdomen: Soft. Bowel sounds are positive. Extremities: No cyanosis or edema. LABORATORY DATA: WBC is 15.5, hemoglobin 17, hematocrit 48.8 with a platelet count of 340,000. Venous blood gas showed pH 7.44, pCO2 of 43, with pO2 of 46, bicarbonate of 28. Sodium is 133, BUN 17, creatinine 0.5. BNP is 396. Chest CT as noted earlier, small pericardial effusion, 0.5-cm right upper lobe nodule, noncalcified. IMPRESSION: 1. Chronic obstructive pulmonary disease with acute exacerbation. 2. Right upper lobe nodule. 3. History of breast cancer status post lumpectomy, status post lymph node resection, status post radiation therapy. 4. Hypothyroidism. 5. adrenalin insufficiency. PLAN: Continue IV steroids, inhaled bronchodilators. Will start Symbicort, continue Spiriva. Monitor peak flow. Supplemental O2. Antibiotic therapy. Obtain followup chest CT in 3-4 months to document stability of right upper lobe nodule, and then, if no change, continue followup 2-year duration to document stability. TAMAR BURNS M.D. [id number]
[2017-09-26] MEDS: methylPREDNISolone NA SUCC 40 MG/1 ML VIAL IVPUSH SCH ×4 (02:04→17:57)
[2017-09-26] MEDS: LEVOTHYROXINE NA 112 MCG TABLET (FP) PO SCH (06:35)
[2017-09-26 08:45] LABS: MEAN CELL VOLUME 97.6 fl (80-96); PLATELET COUNT 300 K/MM3 (134-434)
[2017-09-26 08:56] LABS: ALBUMIN 3.4 g/dl (3.5-5.0); ALK PHOS 41 U/L (32-92); ANION GAP 5 (8-16); BILIRUBIN,TOTAL 0.6 mg/dl (0.2-1.0); BLOOD UREA NITROGEN 21 mg/dl (7-18); CALCIUM 8.8 mg/dl (8.4-10.2); CHLORIDE 95 mmol/L (98-107); CO2 30 mmol/L (22-28); GLUCOSE,RANDOM 130 mg/dl (74-106); MAGNESIUM 2.1 mg/dL (1.8-2.4); PHOSPHOROUS 3.2 mg/dl (2.5-4.6); POTASSIUM 4.3 mmol/L (3.5-5.1); SGOT/AST 15 U/L (10-42); SGPT/ALT 11 U/L (10-40); SODIUM 130 mmol/L (136-145); TOT PROT 5.8 g/dl (6.4-8.3)
[2017-09-26 08:59] LABS: HEMOGLOBIN 15.5 GM/dl (10.7-15.3); MCH 32.9 pg (25.7-33.7); MCHC 33.7 g/dl (32.0-36.0); RBC 4.71 M/mm3 (3.60-5.2); RDW 13.4 % (11.6-15.6); WHITE BLOOD COUNT 14.7 K/mm3 (4.0-10.8)
[2017-09-26 09:20] LABS: CREATININE < 0.8 mg/dl (0.6-1.3)
[2017-09-26] MEDS ORDERED: SODIUM CHLORIDE 1,000 ML IV SCH (09:45)
--- NOTE | 2017-09-26 09:47 | PN ---
Progress Note, Physician Chief Complaint: Complains of cough but improving Less SOB History of Present Illness: Patient was seen and examined. Awake and alert. Chart was reviewed Denies chest pain. Tolerating therapy - Current Medication List Current Medications: Active Medications Albuterol Sulfate (Ventolin 0.083% Nebulizer Soln -) 1 amp NEB Q4H PRN PRN Reason: SHORTNESS OF BREATH Last Admin: 09/25/17 20:37 Dose: 1 amp Anastrozole (Arimidex -) 1 mg PO DAILY [facility] Last Admin: 09/25/17 10:21 Dose: 1 mg Aspirin (Asa -) 81 mg PO DAILY [facility] Last Admin: 09/25/17 10:21 Dose: 81 mg Budesonide/Formoterol Fumarate (Symbicort 160/4.5mcg -) 2 puff IH BID [facility] Last Admin: 09/25/17 21:27 Dose: 2 puff Cyclobenzaprine HCl (Flexeril -) 10 mg PO TID PRN PRN Reason: MUSCLE SPASMS Divalproex Sodium (Depakote -) 1,000 mg PO DAILY [facility] Last Admin: 09/25/17 10:21 Dose: 1,000 mg Divalproex Sodium (Depakote -) 1,500 mg PO HS [facility] Last Admin: 09/25/17 21:26 Dose: 1,500 mg Enoxaparin Sodium (Lovenox -) 40 mg SQ DAILY [facility] Last Admin: 09/25/17 10:23 Dose: 40 mg Escitalopram Oxalate (Lexapro -) 5 mg PO DAILY [facility] Last Admin: 09/25/17 10:21 Dose: 5 mg Levofloxacin (Levaquin 750 Mg Premixed Ivpb -) 750 mg in 150 mls @ 100 mls/hr IVPB DAILY [facility] Last Admin: 09/25/17 10:22 Dose: 100 mls/hr Sodium Chloride (Normal Saline -) 1,000 mls @ 83 mls/hr IV ASDIR [facility] Stop: 09/26/17 21:48 Levetiracetam (Keppra -) 500 mg PO BID [facility] Last Admin: 09/25/17 21:26 Dose: 500 mg Levothyroxine Sodium (Synthroid -) 125 mcg PO DAILY@0700 [facility] Last Admin: 09/26/17 06:35 Dose: 125 mcg Loratadine (Claritin -) 10 mg PO DAILY [facility] Last Admin: 09/25/17 10:21 Dose: 10 mg Methylprednisolone Sodium Succinate (Solu-Medrol -) 40 mg IVPUSH Q6H-IV [facility] Last Admin: 09/26/17 02:04 Dose: 40 mg Oxycodone/Acetaminophen (Percocet 5/325 -) 1 combo PO TID PRN PRN Reason: PAIN LEVEL 6-10 Pantoprazole Sodium (Protonix -) 20 mg PO DAILY [facility] Last Admin: 09/25/17 10:22 Dose: 20 mg Polyethylene Glycol (Miralax (For Daily Use) -) 17 gm PO DAILY [facility] Last Admin: 09/25/17 10:15 Dose: 17 gm Tiotropium [place] (Spiriva -) 1 puff IH DAILY [facility] Last Admin: 09/25/17 10:22 Dose: 1 puff - Objective Vital Signs: Vital Signs Temperature 98.0 F 09/26/17 05:00 Pulse Rate 58 L 09/26/17 05:00 Respiratory Rate 18 09/26/17 09:00 Blood Pressure 130/58 09/26/17 05:00 O2 Sat by Pulse Oximetry (%) 95 09/26/17 09:00 Constitutional: Yes: Well Nourished Eyes: Yes: PERRL HENT: Yes: Atraumatic Neck: Yes: Supple Cardiovascular: Yes: Regular Rate and Rhythm, S1, S2 Respiratory: Yes: Diminished, Wheezes Gastrointestinal: Yes: Normal Bowel Sounds, Soft. No: Tenderness Edema: No Additional Findings/Remarks: - Review of Systems Constitutional: denies: Chills, Fever Cardiovascular: reports: Shortness of Breath. denies: Chest Pain, Palpitations Respiratory: reports: Cough, SOB, SOB on Exertion. denies: Hemoptysis, Orthopnea, PND Gastrointestinal: denies: Abdominal Pain, Constipation, Diarrhea, Melena, Nausea , Rectal Bleeding, Vomiting Neurological: reports: Seizure. denies: Dizziness, Headache, Syncope Labs: CBC, BMP 09/26/17 08:00 09/26/17 08:00 INR, PTT INR 1.01 (0.82-1.09) 09/22/17 10:05 Problem List - Problems (1) COPD with exacerbation Code(s): J44.1 - CHRONIC OBSTRUCTIVE PULMONARY DISEASE W (ACUTE) EXACERBATION (2) GERD (gastroesophageal reflux disease) Code(s): K21.9 - GASTRO-ESOPHAGEAL REFLUX DISEASE WITHOUT ESOPHAGITIS Qualifiers: Esophagitis presence: without esophagitis Qualified Code(s): K21.9 - Gastro -esophageal reflux disease without esophagitis (3) Hypertension Code(s): I10 - ESSENTIAL (PRIMARY) HYPERTENSION Qualifiers: Hypertension type: essential hypertension Qualified Code(s): I10 - Essential (primary) hypertension (4) Hypothyroidism Code(s): E03.9 - HYPOTHYROIDISM, UNSPECIFIED Qualifiers: Hypothyroidism type: unspecified Qualified Code(s): E03.9 - Hypothyroidism , unspecified (5) Seizure disorder Code(s): G40.909 - EPILEPSY, UNSP, NOT INTRACTABLE, WITHOUT STATUS EPILEPTICUS (6) Breast cancer, right breast Code(s): C50.911 - MALIGNANT NEOPLASM OF UNSP SITE OF RIGHT FEMALE BREAST Qualifiers: Breast location: upper outer quadrant of breast Assessment/Plan 1. Shortness of breath due to COPD exacerbation 2. Pulmonary nodule 3. Leukocytosis due to steroid use 4. Hypertension 5. Hypothyroidism 6. History of breast cancer post reconstructive surgery 7. Seizure disorder PLAN: 1. Transthoracic echocardiography revealed normal LV systolic function and normal RV function 2. Continue bronchodilator, steroid taper and O2 3. Continue thyroid replacement therapy 4. Currently on ASA which may be continued 5. If remains hypertensive, may need to initiate therapy 6. Empiric antibiotic coverage Further plans are to follow Rk Huston MD
[2017-09-26] MEDS: POLYETHYLENE GLYCOL 3350 119 GM BTL PO SCH (10:05)
[2017-09-26] MEDS ORDERED: PT OWN MED DRAWER 7, Y5N ONE ×3 (10:32→21:08)
--- NOTE | 2017-09-26 10:44 | PN ---
Progress Note, Physician History of Present Illness: PULMONARY ALERT,FEELING BETTER,LESS DYSPNEIC,LESS COUGH - Current Medication List Current Medications: Active Medications Albuterol Sulfate (Ventolin 0.083% Nebulizer Soln -) 1 amp NEB Q4H PRN PRN Reason: SHORTNESS OF BREATH Last Admin: 09/25/17 20:37 Dose: 1 amp Anastrozole (Arimidex -) 1 mg PO DAILY [facility] Last Admin: 09/25/17 10:21 Dose: 1 mg Aspirin (Asa -) 81 mg PO DAILY [facility] Last Admin: 09/25/17 10:21 Dose: 81 mg Budesonide/Formoterol Fumarate (Symbicort 160/4.5mcg -) 2 puff IH BID [facility] Last Admin: 09/25/17 21:27 Dose: 2 puff Cyclobenzaprine HCl (Flexeril -) 10 mg PO TID PRN PRN Reason: MUSCLE SPASMS Divalproex Sodium (Depakote -) 1,000 mg PO DAILY [facility] Last Admin: 09/25/17 10:21 Dose: 1,000 mg Divalproex Sodium (Depakote -) 1,500 mg PO HS [facility] Last Admin: 09/25/17 21:26 Dose: 1,500 mg Enoxaparin Sodium (Lovenox -) 40 mg SQ DAILY [facility] Last Admin: 09/25/17 10:23 Dose: 40 mg Escitalopram Oxalate (Lexapro -) 5 mg PO DAILY [facility] Last Admin: 09/25/17 10:21 Dose: 5 mg Levofloxacin (Levaquin 750 Mg Premixed Ivpb -) 750 mg in 150 mls @ 100 mls/hr IVPB DAILY [facility] Last Admin: 09/25/17 10:22 Dose: 100 mls/hr Sodium Chloride (Normal Saline -) 1,000 mls @ 83 mls/hr IV ASDIR [facility] Stop: 09/26/17 21:48 Levetiracetam (Keppra -) 500 mg PO BID [facility] Last Admin: 09/25/17 21:26 Dose: 500 mg Levothyroxine Sodium (Synthroid -) 125 mcg PO DAILY@0700 [facility] Last Admin: 09/26/17 06:35 Dose: 125 mcg Loratadine (Claritin -) 10 mg PO DAILY [facility] Last Admin: 09/25/17 10:21 Dose: 10 mg Methylprednisolone Sodium Succinate (Solu-Medrol -) 40 mg IVPUSH Q6H-IV [facility] Last Admin: 09/26/17 02:04 Dose: 40 mg Oxycodone/Acetaminophen (Percocet 5/325 -) 1 combo PO TID PRN PRN Reason: PAIN LEVEL 6-10 Pantoprazole Sodium (Protonix -) 20 mg PO DAILY [facility] Last Admin: 09/25/17 10:22 Dose: 20 mg Polyethylene Glycol (Miralax (For Daily Use) -) 17 gm PO DAILY [facility] Last Admin: 09/25/17 10:15 Dose: 17 gm Tiotropium [place] (Spiriva -) 1 puff IH DAILY [facility] Last Admin: 09/25/17 10:22 Dose: 1 puff - Objective Vital Signs: Vital Signs Temperature 98.0 F 09/26/17 05:00 Pulse Rate 58 L 09/26/17 05:00 Respiratory Rate 18 09/26/17 09:00 Blood Pressure 130/58 09/26/17 05:00 O2 Sat by Pulse Oximetry (%) 95 09/26/17 09:00 Constitutional: Yes: Well Nourished, Calm Eyes: Yes: WNL HENT: Yes: WNL Neck: Yes: WNL Cardiovascular: Yes: Regular Rate and Rhythm, S1, S2 Respiratory: Yes: Wheezes (FEW SCATTERED LIZZETH WHEEZES) Gastrointestinal: Yes: Normal Bowel Sounds, Soft Extremities: Yes: WNL Edema: No Labs: CBC, BMP 09/26/17 08:00 09/26/17 08:00 INR, PTT INR 1.01 (0.82-1.09) 09/22/17 10:05 Problem List - Problems (1) COPD with exacerbation Code(s): J44.1 - CHRONIC OBSTRUCTIVE PULMONARY DISEASE W (ACUTE) EXACERBATION (2) GERD (gastroesophageal reflux disease) Code(s): K21.9 - GASTRO-ESOPHAGEAL REFLUX DISEASE WITHOUT ESOPHAGITIS Qualifiers: Esophagitis presence: without esophagitis Qualified Code(s): K21.9 - Gastro -esophageal reflux disease without esophagitis (3) Hypertension Code(s): I10 - ESSENTIAL (PRIMARY) HYPERTENSION Qualifiers: Hypertension type: essential hypertension Qualified Code(s): I10 - Essential (primary) hypertension (4) Nodule of right lung Code(s): R91.1 - SOLITARY PULMONARY NODULE (5) Seizure disorder Code(s): G40.909 - EPILEPSY, UNSP, NOT INTRACTABLE, WITHOUT STATUS EPILEPTICUS (6) Breast cancer, right breast Code(s): C50.911 - MALIGNANT NEOPLASM OF UNSP SITE OF RIGHT FEMALE BREAST Qualifiers: Breast location: upper outer quadrant of breast Assessment/Plan IMP COPD EXACERBATION RUL NODULE H/O BREAST CA S/P LUMPECTOMY, S/P RT HYPOTHYROID ADRENAL INSUFFICIENCY H/O SEIZURE DISORDER PLAN IV STEROIDS SAME DOSE INHALED BRONCHODILATORS O2 F/U CHEST CT 3-[address] BURNS
[2017-09-26] MEDS: ANASTROZOLE 1 MG TABLET PO SCH (10:57)
[2017-09-26] MEDS: DIVALPROEX SODIUM 500 MG TABLET E.C. PO SCH ×2 (10:58→21:23)
[2017-09-26] MEDS: levETIRAcetam 500 MG TABLET (FP) PO SCH ×2 (10:58→21:23)
[2017-09-26] MEDS: ASPIRIN 81 MG CHEWABLE TABLETS PO SCH (10:58)
[2017-09-26] MEDS: LORATADINE 10 MG TABLET PO SCH (10:58)
[2017-09-26] MEDS: TIOTROPIUM BROMIDE 18 MCG/INH (DEVICE W/ 5 CAPSULES) IH SCH (10:59)
[2017-09-26] MEDS: ENOXAPARIN NA (PORCINE) 40 MG/0.4 ML DISP.SYRIN SQ SCH (10:59)
[2017-09-26] MEDS: PANTOPRAZOLE 20 MG TABLET (FP) PO SCH (10:59)
[2017-09-26] MEDS: ESCITALOPRAM OXALATE 10 MG TABLET (FP) PO SCH (10:59)
[2017-09-26] MEDS: BUDESONIDE/FORMETEROL FUMARATE 160/4.5 mcg INHALER IH SCH ×2 (11:00→21:23)
--- NOTE | 2017-09-26 11:07 | PN ---
Physical Exam: SUBJECTIVE: Patient seen and examined, reports feeling much less improved, less dyspneic upon exertion, denies any chest pain. OBJECTIVE:Patient is a 62y F hx of COPD, seizures, right breast CA (s/p reconstruction), hypothyroidism, htn, chronic lumbar disc disease, seizure disorder, and Adrenal insufficiency. Patient was admitted from the emergency department for acute copd exacerbation. Vital Signs Period Temp Pulse Resp BP Sys/Kim Pulse Ox Last 24 Hr 98.0 F-99.1 F 58-72 18-18 130-162/58-75 95-96 GENERAL: The patient is awake, alert, and fully oriented, in no acute distress. HEAD: Normal with no signs of trauma. EYES: PERRL, extraocular movements intact, sclera anicteric, conjunctiva clear. No ptosis. ENT: Ears normal, nares patent, oropharynx clear without exudates, moist mucous membranes. NECK: Trachea midline, full range of motion, supple. LUNGS: Breath sounds equal, mild inspirartory wheeze to apexes, diminished to bases, no crackles, no accessory muscle use. HEART: Regular rate and rhythm, S1, S2 without murmur, rub or gallop. ABDOMEN: Soft, nontender, nondistended, normoactive bowel sounds, no guarding, no rebound, no hepatosplenomegaly, no masses. EXTREMITIES: 2+ pulses, warm, well-perfused, no edema. NEUROLOGICAL: Cranial nerves II through XII grossly intact. Normal speech, gait not observed. PSYCH: Normal mood, normal affect. SKIN: Warm, dry, normal turgor, no rashes or lesions noted Laboratory Results - last 24 hr 09/26/17 09/26/17 08:00 08:00 WBC 14.7 H RBC 4.71 Hgb 15.5 H Hct 46.0 H MCV 97.6 H MCH 32.9 MCHC 33.7 RDW 13.4 Plt Count 300 MPV 7.0 L Neutrophils % No Result Required. Lymphocytes % No Result Required. Sodium 130 L Potassium 4.3 Chloride 95 L Carbon Dioxide 30 H Anion Gap 5 L BUN 21 H D Creatinine < 0.8 D Creat Clearance w eGFR > 60 Random Glucose 130 H Calcium 8.8 Phosphorus 3.2 Magnesium 2.1 Total Bilirubin 0.6 AST 15 ALT 11 Alkaline Phosphatase 41 Total Protein 5.8 L Albumin 3.4 L Active Medications Generic Name Dose Route Start Last Admin Trade Name Freq PRN Reason Stop Dose Admin Albuterol Sulfate 1 amp 09/22/17 12:49 09/25/17 20:37 Ventolin 0.083% Nebulizer Soln - NEB 1 amp Q4H PRN Administration SHORTNESS OF BREATH Anastrozole 1 mg 09/23/17 10:00 09/26/17 10:57 Arimidex - PO 1 mg DAILY [facility] Administration Aspirin 81 mg 09/23/17 10:00 09/26/17 10:58 Asa - PO 81 mg DAILY [facility] Administration Budesonide/Formoterol Fumarate 2 puff 09/25/17 11:45 09/26/17 11:00 Symbicort 160/4.5mcg - IH 2 puff BID [facility] Administration Cyclobenzaprine HCl 10 mg 09/22/17 12:42 Flexeril - PO TID PRN MUSCLE SPASMS Divalproex Sodium 1,000 mg 09/23/17 10:00 09/26/17 10:58 Depakote - PO 1,000 mg DAILY [facility] Administration Divalproex Sodium 1,500 mg 09/22/17 22:00 09/25/17 21:26 Depakote - PO 1,500 mg HS [facility] Administration Enoxaparin Sodium 40 mg 09/23/17 10:00 09/26/17 10:59 Lovenox - SQ 40 mg DAILY [facility] Administration Escitalopram Oxalate 5 mg 09/23/17 10:00 09/26/17 10:59 Lexapro - PO 5 mg DAILY [facility] Administration Levofloxacin 750 mg in 150 mls @ 100 mls/hr 09/23/17 10:00 09/26/17 10:58 Levaquin 750 Mg Premixed Ivpb - IVPB 100 mls/hr DAILY [facility] Administration Sodium Chloride 1,000 mls @ 83 mls/hr 09/26/17 09:45 09/26/17 09:55 Normal Saline - IV 09/26/17 21:48 83 mls/hr ASDIR [facility] Administration Levetiracetam 500 mg 09/22/17 22:00 09/26/17 10:58 Keppra - PO 500 mg BID [facility] Administration Levothyroxine Sodium 125 mcg 09/23/17 12:12 09/26/17 06:35 Synthroid - PO 125 mcg DAILY@0700 [facility] Administration Loratadine 10 mg 09/23/17 10:00 09/26/17 10:58 Claritin - PO 10 mg DAILY [facility] Administration Methylprednisolone Sodium Succinate 40 mg 09/26/17 18:00 Solu-Medrol - IVPUSH Q8H-IV [facility] Oxycodone/Acetaminophen 1 combo 09/22/17 12:42 Percocet 5/325 - PO TID PRN PAIN LEVEL 6-10 Pantoprazole Sodium 20 mg 09/23/17 10:00 09/26/17 10:59 Protonix - PO 20 mg DAILY [facility] Administration Polyethylene Glycol 17 gm 09/25/17 11:45 09/25/17 10:15 Miralax (For Daily Use) - PO 17 gm DAILY [facility] Administration Tiotropium [place] 1 puff 09/22/17 14:30 09/26/17 10:59 Spiriva - IH 1 puff DAILY [facility] Administration Microbiology 09/22/17 10:10 Blood - Peripheral Venous Blood Culture - Preliminary NO GROWTH OBTAINED AFTER 96 HOURS, INCUBATION TO CONTINUE FOR 1 DAYS. 09/22/17 10:05 Blood - Peripheral Venous Blood Culture - Preliminary NO GROWTH OBTAINED AFTER 96 HOURS, INCUBATION TO CONTINUE FOR 1 DAYS. ASSESSMENT/PLAN: IMAGING ct of chest: very small pericardial effusion, 0.5cm right upper lobe pulmonary nodule, centrilolbular emphysema ASSESSMENT/PLAN: 1) Acute COPD exacerbation - wheezing much improved, decrease solumedrol 40mg TID, continue symbicort and spriva with albuterol prn - continue levaquin day 5 for empiric coverage - keep spo2 above 92% with supplemental O2 2) cardiology - echo: normal LV, normal RV, trace MR/TR unchanged from prior hypertension -b/p at goal, strict monitoring 3) endo Seizure disorder - stable, continue depakote, Keppra Hypothyroidism -decreased levothyroxine to 125mcg, will need outpatient followup testing in 6 weeks 4) heme/onc Breast cancer - continue anastrozole 5) hyponatremia corrected serum sodium 130 - trial IVF, recheck sodium in AM FEN Fluids: PO intake adequate Electrolytes: replete as indicated Nutrition: low sodium DVT prophylaxis: lovenox, oob, ambulation Dispo: continues to require inpatient care. Full code. Problem List - Problems (1) Hypothyroidism Code(s): E03.9 - HYPOTHYROIDISM, UNSPECIFIED Qualifiers: Hypothyroidism type: unspecified Qualified Code(s): E03.9 - Hypothyroidism , unspecified (2) GERD (gastroesophageal reflux disease) Code(s): K21.9 - GASTRO-ESOPHAGEAL REFLUX DISEASE WITHOUT ESOPHAGITIS Qualifiers: Esophagitis presence: without esophagitis Qualified Code(s): K21.9 - Gastro -esophageal reflux disease without esophagitis (3) Lumbar disc disease Code(s): M51.9 - UNSP THORACIC, THORACOLUM AND LUMBOSACR INTVRT DISC DISORDER (4) COPD with exacerbation Code(s): J44.1 - CHRONIC OBSTRUCTIVE PULMONARY DISEASE W (ACUTE) EXACERBATION (5) Breast cancer, right breast Code(s): C50.911 - MALIGNANT NEOPLASM OF UNSP SITE OF RIGHT FEMALE BREAST Qualifiers: Breast location: upper outer quadrant of breast (6) Hypertension Code(s): I10 - ESSENTIAL (PRIMARY) HYPERTENSION Qualifiers: Hypertension type: essential hypertension Qualified Code(s): I10 - Essential (primary) hypertension (7) Seizure disorder Code(s): G40.909 - EPILEPSY, UNSP, NOT INTRACTABLE, WITHOUT STATUS EPILEPTICUS Visit type - Emergency Visit Emergency Visit: Yes ED Registration Date: 09/22/17 Care time: The patient presented to the Emergency Department on the above date and was hospitalized for further evaluation of their emergent condition. - New Patient This patient is new to me today: No - Critical Care Critical Care patient: No - Discharge Referral Referred to [facility] Med P.C.: No
[2017-09-26] MEDS ORDERED: MAGNESIUM HYDROX 2400MG/30ML ORAL SUSPENSION 30 ML CUP PO PRN (11:08)
[2017-09-26 11:42] LABS: PLATELET ESTIMATE ADEQUATE
[2017-09-27] MEDS: methylPREDNISolone NA SUCC 40 MG/1 ML VIAL IVPUSH SCH ×2 (01:50→09:59)
[2017-09-27] MEDS: LEVOTHYROXINE NA 112 MCG TABLET (FP) PO SCH ×2 (06:27→07:55)
[2017-09-27] MEDS ORDERED: ALBUTEROL SO4 2.5/IPRATROPIUM 0.5 INH SOL 3 ML VIAL.NEB. NEB ONE (09:11)
[2017-09-27] MEDS: ALBUTEROL SO4 0.083% IH SOL 2.5 MG/3 ML VIAL.NEB. NEB PRN (09:12)
[2017-09-27 09:24] LABS: ANION GAP 5 (8-16); BLOOD UREA NITROGEN 20 mg/dl (7-18); CALCIUM 8.9 mg/dl (8.4-10.2); CHLORIDE 94 mmol/L (98-107); CO2 29 mmol/L (22-28); GLUCOSE,RANDOM 129 mg/dl (74-106); MAGNESIUM 2.2 mg/dL (1.8-2.4); PHOSPHOROUS 3.4 mg/dl (2.5-4.6); POTASSIUM 4.2 mmol/L (3.5-5.1); SODIUM 128 mmol/L (136-145)
[2017-09-27] MEDS ORDERED: PT OWN MED DRAWER 7, Y5N ONE (09:35)
[2017-09-27 09:38] LABS: BASO % 0.2 % (0-2.0); EOS % 0.1 % (0-4.5); LYMPH % 14.2 % (8-40); MCH 33.8 pg (25.7-33.7); MCHC 34.8 g/dl (32.0-36.0); MEAN CELL VOLUME 97.1 fl (80-96); MEAN PLT VOLUME 6.9 fl (7.5-11.1); MONO % 2.6 % (3.8-10.2); NEUT % 82.9 % (42.8-82.8); PLATELET COUNT 276 K/MM3 (134-434); RBC 4.74 M/mm3 (3.60-5.2); RDW 13.3 % (11.6-15.6); WHITE BLOOD COUNT 13.4 K/mm3 (4.0-10.8)
[2017-09-27 09:55] LABS: CREATININE < 0.8 mg/dl (0.6-1.3)
[2017-09-27 09:57] VITALS: BP 140/63; PULSE 77; TEMP 98.4
[2017-09-27] MEDS: BUDESONIDE/FORMETEROL FUMARATE 160/4.5 mcg INHALER IH SCH (09:59)
[2017-09-27] MEDS: ANASTROZOLE 1 MG TABLET PO SCH (09:59)
[2017-09-27] MEDS: ASPIRIN 81 MG CHEWABLE TABLETS PO SCH (09:59)
[2017-09-27] MEDS: TIOTROPIUM BROMIDE 18 MCG/INH (DEVICE W/ 5 CAPSULES) IH SCH (09:59)
[2017-09-27] MEDS: ESCITALOPRAM OXALATE 10 MG TABLET (FP) PO SCH (10:00)
[2017-09-27] MEDS: PANTOPRAZOLE 20 MG TABLET (FP) PO SCH (10:00)
[2017-09-27] MEDS: LORATADINE 10 MG TABLET PO SCH (10:00)
[2017-09-27] MEDS: ENOXAPARIN NA (PORCINE) 40 MG/0.4 ML DISP.SYRIN SQ SCH (10:01)
[2017-09-27] MEDS: DIVALPROEX SODIUM 500 MG TABLET E.C. PO SCH (10:01)
[2017-09-27] MEDS: POLYETHYLENE GLYCOL 3350 119 GM BTL PO SCH (10:01)
[2017-09-27] MEDS: levETIRAcetam 500 MG TABLET (FP) PO SCH (10:01)
--- NOTE | 2017-09-27 10:10 | PN ---
Progress Note, Physician History of Present Illness: pulmonary alert,feeling better,less dyspneic - Current Medication List Current Medications: Active Medications Albuterol Sulfate (Ventolin 0.083% Nebulizer Soln -) 1 amp NEB Q4H PRN PRN Reason: SHORTNESS OF BREATH Last Admin: 09/27/17 09:12 Dose: 1 amp Anastrozole (Arimidex -) 1 mg PO DAILY [facility] Last Admin: 09/26/17 10:57 Dose: 1 mg Aspirin (Asa -) 81 mg PO DAILY [facility] Last Admin: 09/26/17 10:58 Dose: 81 mg Budesonide/Formoterol Fumarate (Symbicort 160/4.5mcg -) 2 puff IH BID [facility] Last Admin: 09/26/17 21:23 Dose: 2 puff Cyclobenzaprine HCl (Flexeril -) 10 mg PO TID PRN PRN Reason: MUSCLE SPASMS Divalproex Sodium (Depakote -) 1,000 mg PO DAILY [facility] Last Admin: 09/26/17 10:58 Dose: 1,000 mg Divalproex Sodium (Depakote -) 1,500 mg PO HS [facility] Last Admin: 09/26/17 21:23 Dose: 1,500 mg Enoxaparin Sodium (Lovenox -) 40 mg SQ DAILY [facility] Last Admin: 09/26/17 10:59 Dose: 40 mg Escitalopram Oxalate (Lexapro -) 5 mg PO DAILY [facility] Last Admin: 09/26/17 10:59 Dose: 5 mg Levofloxacin (Levaquin 750 Mg Premixed Ivpb -) 750 mg in 150 mls @ 100 mls/hr IVPB DAILY [facility] Last Admin: 09/26/17 10:58 Dose: 100 mls/hr Levetiracetam (Keppra -) 500 mg PO BID [facility] Last Admin: 09/26/17 21:23 Dose: 500 mg Levothyroxine Sodium (Synthroid -) 125 mcg PO DAILY@0700 [facility] Last Admin: 09/27/17 07:55 Dose: Not Given Loratadine (Claritin -) 10 mg PO DAILY [facility] Last Admin: 09/26/17 10:58 Dose: 10 mg Magnesium Hydroxide (Milk Of Magnesia -) 30 ml PO PRN PRN PRN Reason: CONSTIPATION Last Admin: 09/27/17 06:35 Dose: 30 ml Methylprednisolone Sodium Succinate (Solu-Medrol -) 40 mg IVPUSH Q8H-IV [facility] Last Admin: 09/27/17 01:50 Dose: 40 mg Oxycodone/Acetaminophen (Percocet 5/325 -) 1 combo PO TID PRN PRN Reason: PAIN LEVEL 6-10 Pantoprazole Sodium (Protonix -) 20 mg PO DAILY [facility] Last Admin: 09/26/17 10:59 Dose: 20 mg Polyethylene Glycol (Miralax (For Daily Use) -) 17 gm PO DAILY [facility] Last Admin: 09/26/17 10:05 Dose: 17 gm Tiotropium [place] (Spiriva -) 1 puff IH DAILY [facility] Last Admin: 09/26/17 10:59 Dose: 1 puff - Objective Vital Signs: Vital Signs Temperature 98.4 F 09/27/17 09:53 Pulse Rate 77 09/27/17 09:53 Respiratory Rate 17 09/27/17 09:53 Blood Pressure 140/63 09/27/17 09:53 O2 Sat by Pulse Oximetry (%) 92 L 09/26/17 23:25 Constitutional: Yes: Well Nourished, Calm Eyes: Yes: WNL HENT: Yes: WNL Neck: Yes: WNL Cardiovascular: Yes: Regular Rate and Rhythm, S1, S2 Respiratory: Yes: Wheezes (scattered heron wheezes) Gastrointestinal: Yes: Normal Bowel Sounds, Soft Extremities: Yes: WNL Edema: No Labs: CBC, BMP 09/27/17 08:30 INR, PTT INR 1.01 (0.82-1.09) 09/22/17 10:05 Problem List - Problems (1) COPD with exacerbation Code(s): J44.1 - CHRONIC OBSTRUCTIVE PULMONARY DISEASE W (ACUTE) EXACERBATION (2) GERD (gastroesophageal reflux disease) Code(s): K21.9 - GASTRO-ESOPHAGEAL REFLUX DISEASE WITHOUT ESOPHAGITIS Qualifiers: Esophagitis presence: without esophagitis Qualified Code(s): K21.9 - Gastro -esophageal reflux disease without esophagitis (3) Hypertension Code(s): I10 - ESSENTIAL (PRIMARY) HYPERTENSION Qualifiers: Hypertension type: essential hypertension Qualified Code(s): I10 - Essential (primary) hypertension (4) Nodule of right lung Code(s): R91.1 - SOLITARY PULMONARY NODULE (5) Seizure disorder Code(s): G40.909 - EPILEPSY, UNSP, NOT INTRACTABLE, WITHOUT STATUS EPILEPTICUS (6) Breast cancer, right breast Code(s): C50.911 - MALIGNANT NEOPLASM OF UNSP SITE OF RIGHT FEMALE BREAST Qualifiers: Breast location: upper outer quadrant of breast Assessment/Plan IMP COPD EXACERBATION RUL NODULE H/O BREAST CA S/P LUMPECTOMY, S/P RT HYPOTHYROID ADRENAL INSUFFICIENCY H/O SEIZURE DISORDER PLAN PREDNISONE 60 mg PO WITH TAPER INHALED BRONCHODILATORS O2 F/U CHEST CT 3-[address] BURNS
--- NOTE | 2017-09-27 11:45 | DS ---
Physical Exam: SUBJECTIVE: Patient seen and examined, reports less dyspnea upon exertion, denies any shortness of breath. OBJECTIVE:Patient is a 62y F hx of COPD, seizures, right breast CA (s/p reconstruction), hypothyroidism, htn, chronic lumbar disc disease, and Adrenal insufficiency. Patient reports with increasingly shortness of breath and cough for the past 2 weeks. Patient was evaluated in urgent care 2 weeks ago and started on zithromax and prednisone. She reports ongoing shortness of breath and dyspnea upon exertion, patient was re-evaluated again at urgent care and was restarted on prednisone. She reports ongoing shortness of breath with worsening of dyspne upon exertion. ER course was notable for: (1)chest xray interval 7mm nodule in the right upper mid/lung (2)spo2 93% on room air (3)troponin x 1 wnl Vital Signs Period Temp Pulse Resp BP Sys/Kim Pulse Ox Last 24 Hr 97.7 F-98.4 F 58-77 17-20 130-156/54-75 92-93 PHYSICAL EXAM GENERAL: The patient is awake, alert, and fully oriented, in no acute distress. HEAD: Normal with no signs of trauma. EYES: PERRL, extraocular movements intact, sclera anicteric, conjunctiva clear. ENT: Ears normal, nares patent, oropharynx clear without exudates, moist mucous membranes. NECK: Trachea midline, full range of motion, supple. LUNGS: Breath sounds equal, mild inspiratory wheeze to apexes, clear to bases, no crackles, no accessory muscle use. HEART: Regular rate and rhythm, S1, S2 without murmur, rub or gallop. ABDOMEN: Soft, nontender, nondistended, normoactive bowel sounds, no guarding, no rebound, no hepatosplenomegaly, no masses. EXTREMITIES: 2+ pulses, warm, well-perfused, no edema. NEUROLOGICAL: Cranial nerves II through XII grossly intact. Normal speech, gait not observed. PSYCH: Normal mood, normal affect. SKIN: Warm, dry, normal turgor, no rashes or lesions noted. LABS Laboratory Results - last 24 hr 09/26/17 09/27/17 09/27/17 08:00 08:30 08:30 WBC 13.4 H RBC 4.74 Hgb 16.0 H Hct 46.0 H MCV 97.1 H MCH 33.8 H MCHC 34.8 RDW 13.3 Plt Count 276 MPV 6.9 L Neutrophils % 82.9 H Neutrophils % (Manual) 85.0 H Band Neutrophils % 2.0 Lymphocytes % 14.2 Lymphocytes % (Manual) 3.0 L Monocytes % 2.6 L Monocytes % (Manual) 4 Eosinophils % 0.1 Basophils % 0.2 Myelocytes % (Man) 1 Platelet Estimate Adequate Sodium 128 L Potassium 4.2 Chloride 94 L Carbon Dioxide 29 H Anion Gap 5 L BUN 20 H Creatinine < 0.8 Random Glucose 129 H Calcium 8.9 Phosphorus 3.4 Magnesium 2.2 Microbiology 09/22/17 10:05 Blood - Peripheral Venous Blood Culture - Final NO GROWTH AFTER 5 DAYS INCUBATION 09/22/17 10:10 Blood - Peripheral Venous Blood Culture - Final NO GROWTH AFTER [address] of chest: very small pericardial effusion, 0.5cm right upper lobe pulmonary nodule, centrilolbular emphysema HOSPITAL COURSE: 1) Acute COPD exacerbation - wheezing much improved after solumedrol taper, continued symbicort and spriva with albuterol prn - levaquin day 6 for empiric coverage - keep spo2 above 92% with supplemental O2 2) cardiology - echo: normal LV, normal RV, trace MR/TR unchanged from prior hypertension -b/p at goal, strict monitoring 3) Seizure disorder - stable, continue depakote, Keppra Hypothyroidism -decreased levothyroxine to 125mcg, will need outpatient followup testing in 6 weeks 4) Breast cancer - continue anastrozole 5) hyponatremia corrected serum sodium 130 - chronic issue in past admission, evaluated by neprology in past Date of Admission:09/22/17 Date of Discharge: 09/27/17 Minutes to complete discharge: 45 Discharge Summary Reason For Visit: COPD ACUTE EXACERBATION Current Active Problems COPD with exacerbation (Acute) GERD (gastroesophageal reflux disease) (Acute) Hypertension (Acute) Hypothyroidism (Acute) Lumbar disc disease (Acute) Nodule of right lung (Acute) Seizure disorder (Acute) Condition: Improved - Instructions Diet, Activity, Other Instructions: you were admitted to the hospital for copd excerbation - continue symbicort and spriva daily. - albuterol nebulizers every 4 hours as needed for shortness of breath - continue prednisone daily as prescribed - your levothyroxine dose was decreased due to elevated thyroid profile, please follow up with your primary care physician for repeat blood work - please follow up with the assistant manager, Dr Herman within 3 weeks - if any new or persistent symptoms develop please return to the emergency department Referrals: Uche Herman MD [Staff Physician] - 3 Weeks Ruby Reid MD [Staff Physician] - 2 Weeks Disposition: VNS/HOME HEALTH CARE - Home Medications Comprehensive Discharge Medication List: Ambulatory Orders Anastrozole [Arimidex -] 1 mg PO DAILY 09/22/17 Aspirin [ASA -] 81 mg PO DAILY 09/22/17 Cyclobenzaprine HCl [Flexeril -] 10 mg PO TID 09/22/17 Divalproex Sodium [Depakote] 1,000 mg PO DAILY 09/22/17 Divalproex Sodium [Depakote] 1,500 mg PO HS 09/22/17 Escitalopram Oxalate [Lexapro -] 5 mg PO DAILY 09/22/17 Hydrocortisone [Cortef -] 5 mg PO DAILY 09/22/17 Levothyroxine Sodium [Synthroid] 137 mcg PO DAILY 09/22/17 Loratadine [Claritin] 10 mg PO DAILY 09/22/17 Omeprazole Magnesium [Prilosec Otc] 20 mg PO DAILY 09/22/17 Oxycodone HCl/Acetaminophen [Endocet 5-325 Tablet] 1 each PO TID PRN 09/22/17 Salmeterol/Fluticasone [Advair 500Mcg/50Mcg] 1 inh PO BID 09/22/17 levETIRAcetam [Keppra -] 500 mg PO BID 09/22/17 Problem List - Problems (1) Hypothyroidism Code(s): E03.9 - HYPOTHYROIDISM, UNSPECIFIED Qualifiers: Hypothyroidism type: unspecified Qualified Code(s): E03.9 - Hypothyroidism , unspecified (2) GERD (gastroesophageal reflux disease) Code(s): K21.9 - GASTRO-ESOPHAGEAL REFLUX DISEASE WITHOUT ESOPHAGITIS Qualifiers: Esophagitis presence: without esophagitis Qualified Code(s): K21.9 - Gastro -esophageal reflux disease without esophagitis (3) Lumbar disc disease Code(s): M51.9 - UNSP THORACIC, THORACOLUM AND LUMBOSACR INTVRT DISC DISORDER (4) COPD with exacerbation Code(s): J44.1 - CHRONIC OBSTRUCTIVE PULMONARY DISEASE W (ACUTE) EXACERBATION (5) Breast cancer, right breast Code(s): C50.911 - MALIGNANT NEOPLASM OF UNSP SITE OF RIGHT FEMALE BREAST Qualifiers: Breast location: upper outer quadrant of breast (6) Hypertension Code(s): I10 - ESSENTIAL (PRIMARY) HYPERTENSION Qualifiers: Hypertension type: essential hypertension Qualified Code(s): I10 - Essential (primary) hypertension (7) Seizure disorder Code(s): G40.909 - EPILEPSY, UNSP, NOT INTRACTABLE, WITHOUT STATUS EPILEPTICUS This patient is new to me today: No Emergency Visit: Yes ED Registration Date: 09/22/17 Care time: The patient presented to the Emergency Department on the above date and was hospitalized for further evaluation of their emergent condition. Critical Care patient: No - Discharge Referral Referred to [facility] No
== END 2017-09-27 13:45 | disposition home health service (06) | DRG 140 ==
LOC: FER 08:57 → FM/S 13:01
PROVIDERS: ADMIT Internal Medicine; ATTEND Nurse Practitioner Family
DX: J44.1 Chronic obstructive pulmonary disease with (acute) exacerbation (principal); E03.9 Hypothyroidism, unspecified; K21.9 Gastro-esophageal reflux disease without esophagitis; M51.9 Unspecified thoracic, thoracolumbar and lumbosacral intervertebral disc disorder; I10 Essential (primary) hypertension; Z85.3 Personal history of malignant neoplasm of breast; G40.909 Epilepsy, unspecified, not intractable, without status epilepticus; E87.1 Hypo-osmolality and hyponatremia; R91.1 Solitary pulmonary nodule; E27.40 Unspecified adrenocortical insufficiency; D72.829 Elevated white blood cell count, unspecified; Z87.891 Personal history of nicotine dependence; I31.3 Pericardial effusion (noninflammatory)
CPT/HCPCS: 36415; 71045-TC-FY; 71250-TC; 80048; 80053; 81003; 82550; 82803; 83735; 83880; 84100; 84439; 84443; 84484; 85025; 85610; 87040; 93005; 93306-TC; 94010; 94150; 94640; 99284-25; J7030; J7620

== ENCOUNTER 2018-02-18 16:57 | Observation (INO) | payer OTHER ==
[2018-02-18] MEDS ORDERED: methylPREDNISolone NA SUCC 125 MG/2 ML VIAL IVPB ONE (17:15)
[2018-02-18] MEDS ORDERED: MAGNESIUM SULF 50% (8.12 MEQ/2 ML-1 GM VIAL) IVPB ONE (17:15)
[2018-02-18] MEDS ORDERED: ALBUTEROL SO4 2.5/IPRATROPIUM 0.5 INH SOL 3 ML VIAL.NEB. NEB ONE ×2 (17:15→17:31)
--- NOTE | 2018-02-18 17:25 | PDOC ---
History of Present Illness - General Chief Complaint: Shortness of Breath Stated Complaint: sob Time Seen by Provider: 02/18/18 16:59 History Source: Patient Exam Limitations: No Limitations - History of Present Illness Initial Comments: 02/18/18 17:19 62 year old F c/ pmh COPD, HTN, R sided breast ca in remission s/p lumpectomy and radiation, PNA, hypothyroidism, epilepsy p/w cough x 5 days. The patient has been endorsing several days of chest congestion and wheezing. Denies midsternal chest pain but does endorse SOB. Denies fevers. States that she's starting to developed R sided back pain similar to her previous PNA in October 2017. Denies abdominal pain. She has been using her nebulizers at home with minimal relief. Came into the ER for an evaluation. Past History - Past Medical History Allergies/Adverse Reactions: Allergies Allergy/AdvReac Type Severity Reaction Status Date / Time No Known Allergies Allergy Verified 02/18/18 16:58 Home Medications: Ambulatory Orders Anastrozole [Arimidex -] 1 mg PO DAILY 09/22/17 Aspirin [ASA -] 81 mg PO DAILY 09/22/17 Cyclobenzaprine HCl [Flexeril -] 10 mg PO TID 09/22/17 Divalproex Sodium [Depakote] 1,000 mg PO DAILY 09/22/17 Divalproex Sodium [Depakote] 1,500 mg PO HS 09/22/17 Escitalopram Oxalate [Lexapro -] 5 mg PO DAILY 09/22/17 Loratadine [Claritin] 10 mg PO DAILY 09/22/17 Omeprazole Magnesium [Prilosec Otc] 20 mg PO DAILY 09/22/17 Oxycodone HCl/Acetaminophen [Endocet 5-325 Tablet] 1 each PO TID PRN 09/22/17 levETIRAcetam [Keppra -] 500 mg PO BID 09/22/17 Albuterol 0.083% Nebulizer [place] [Ventolin 0.083% Nebulizer Soln -] 1 amp NEB Q4H PRN #120 amp 09/27/17 Budesonide/Formeterol Fumarate [SYMBICORT 160/4.5mcg -] 2 puff IH BID #1 inhaler 09/27/17 Levothyroxine [Synthroid -] 125 mcg PO DAILY@0700 #30 tablet 09/27/17 Nebulizer Accessories [Adult Aerosol Mask] 1 each MC DAILY #1 each 09/27/17 Nebulizer and Compressor [[place] Choice Nebulizer] 1 each MC DAILY #1 each 09/27 Polyethylene Glycol 3350 [Miralax 119 gm Btl -] 17 gm PO DAILY #1 bottle Tiotropium [place] [Spiriva] 1 puff IH DAILY #1 inh 09/27/17 predniSONE [Deltasone -] 5 mg PO ASDIR #32 tab 09/27/17 Anemia: No Asthma: No Cancer: Yes (RIGHT BREAST-DX 03/01) Cardiac Disorders: No CVA: No COPD: Yes CHF: No Dementia: No Diabetes: No GI Disorders: Yes (GERD) Disorders: Yes (URGE INCONTINENCE,CHRONIC CONSTIPATION) HTN: Yes Hypercholesterolemia: No Liver Disease: No Seizures: Yes Thyroid Disease: Yes Other medical history: breast ca - Surgical History Abdominal Surgery: No Appendectomy: No Cardiac Surgery: No Cholecystectomy: No Lung Surgery: No Neurologic Surgery: No Orthopedic Surgery: Yes (DISC SUGERY-1984, SPINAL FUSION) - Suicide/Smoking/Psychosocial Hx Smoking Status: Yes Smoking History: Current every day smoker Have you smoked in the past 12 months: Yes Number of Cigarettes Smoked Daily: 10 If you are a former smoker, when did you quit?: 01/2016 Information on smoking cessation initiated: No 'Breaking Loose' booklet given: 04/11/16 Hx Alcohol Use: Yes Drug/Substance Use Hx: No Substance Use Type: Alcohol Hx Substance Use Treatment: No Review of Systems - Review of Systems Able to Perform ROS?: Yes Comments:: 02/18/18 17:24 GENERAL/CONSTITUTIONAL: No fever or chills. No weakness. HEAD, EYES, EARS, NOSE AND THROAT: No change in vision. No ear pain or discharge. No sore throat. CARDIOVASCULAR: No chest pain or shortness of breath. RESPIRATORY: + cough, wheezing. No hemoptysis. GASTROINTESTINAL: No nausea, vomiting, diarrhea or constipation. GENITOURINARY: No dysuria, frequency, or change in urination. MUSCULOSKELETAL: No joint or muscle swelling or pain. No neck or back pain. SKIN: No rash NEUROLOGIC: No headache, vertigo, loss of consciousness, or change in strength/ sensation. ENDOCRINE: No increased thirst. No abnormal weight change. HEMATOLOGIC/LYMPHATIC: No anemia, easy bleeding, or history of blood clots. ALLERGIC/IMMUNOLOGIC: No hives or skin allergy. *Physical Exam - Vital Signs Last Vital Signs Temp Pulse Resp BP Pulse Ox 97.8 F 72 17 159/73 97 02/18/18 16:58 02/18/18 16:58 02/18/18 16:58 02/18/18 16:58 02/18/18 16:58 - Physical Exam Comments: 02/18/18 17:25 GENERAL: Awake, alert, and fully oriented, in no acute distress HEAD: No signs of trauma EYES: PERRLA, EOMI, sclera anicteric, conjunctiva clear ENT: Auricles normal inspection, hearing grossly normal, nares patent NECK: Normal ROM, supple LUNGS: Tight breath sounds with feint expiratory wheezing bilaterally. HEART: Regular rate and rhythm, normal S1 and S2, no murmurs, rubs or gallops ABDOMEN: Soft, nontender, No guarding, no rebound. No masses EXTREMITIES: Normal range of motion, no edema. No clubbing or cyanosis. No cords, erythema, or tenderness NEUROLOGICAL: Cranial nerves II through XII grossly intact. Normal speech, normal gait SKIN: Warm, Dry, normal turgor, no rashes or lesions noted. Heart Score/ECG Review #1 ECG reviewed & interpreted by me at: 17:55 02/18/18 18:11 NSR 60, no std/rocky, normal axis, normal intervals, QTC 428 msec ED Treatment Course - LABORATORY CBC & Chemistry Diagram: 02/18/18 17:30 02/18/18 17:30 - RADIOLOGY Radiology Studies Ordered: Category Date Time Status CHEST PA & LAT [RAD] Stat Radiology 02/18/18 17:15 Ordered Medical Decision Making - Medical Decision Making 02/18/18 17:25 Vital Signs Temp Pulse Resp BP Pulse Ox 97.8 F 72 17 159/73 97 02/18/18 16:58 02/18/18 16:58 02/18/18 16:58 02/18/18 16:58 02/18/18 16:58 Impression: COPD exacerbation. R/o PNA vs. less likely ACS. Chest xray, labs, cultures. Duonebs, steroids, IV magnesium. ECG Reassess. Low threshold for admit. 02/18/18 18:49 CBC, BMP 02/18/18 17:30 02/18/18 17:30 CMP Sodium 129 mmol/L (136-145) L 02/18/18 17:30 Potassium 4.9 mmol/L (3.5-5.1) 02/18/18 17:30 Chloride 91 mmol/L (98-107) L 02/18/18 17:30 Carbon Dioxide 29 mmol/L (22-28) H 02/18/18 17:30 Anion Gap 9 (8-16) 02/18/18 17:30 BUN 19 mg/dl (7-18) H 02/18/18 17:30 Creatinine 0.5 mg/dl (0.6-1.3) L 02/18/18 17:30 Creat Clearance w eGFR > 60 (>60) 02/18/18 17:30 Random Glucose 101 mg/dl (74-106) D 02/18/18 17:30 Calcium 9.8 mg/dl (8.4-10.2) 02/18/18 17:30 Phosphorus 3.2 mg/dl (2.5-4.6) 02/18/18 17:30 Magnesium 1.7 mg/dL (1.8-2.4) L 02/18/18 17:30 Total Bilirubin 0.6 mg/dl (0.2-1.0) 02/18/18 17:30 AST 17 U/L (10-42) 02/18/18 17:30 ALT 11 U/L (10-40) 02/18/18 17:30 Alkaline Phosphatase 49 U/L (32-92) 02/18/18 17:30 Troponin I < 0.03 ng/ml (0.00-0.06) 02/18/18 17:30 Total Protein 7.1 g/dl (6.4-8.3) 02/18/18 17:30 Albumin 4.2 g/dl (3.5-5.0) 02/18/18 17:30 Chest xray reviewed by me, pending official radiology read. ?early onset infiltrate? However, given persistent cough and wheezing, will treat as COPD exacerbation and PNA. Admit *DC/Admit/Observation/Transfer Diagnosis at time of Disposition: COPD exacerbation Pneumonia Qualifiers: Pneumonia type: due to unspecified organism Laterality: unspecified laterality Lung location: unspecified part of lung Qualified Code(s): J18.9 - Pneumonia, unspecified organism - Discharge Dispostion Condition at time of disposition: Stable Decision to Admit order: Yes - Referrals Referrals: Ruby Reid MD [Primary Care Provider] - - Patient Instructions - Post Discharge Activity
[2018-02-18] MEDS ORDERED: methylPREDNISolone NA SUCC 125 MG/2 ML VIAL ONE (17:31)
[2018-02-18 17:54] LABS: BASO % 1.5 % (0-2.0); EOS % 1.2 % (0-4.5); HEMOGLOBIN 15.6 GM/dl (10.7-15.3); LYMPH % 25.8 % (8-40); MCH 32.7 pg (25.7-33.7); MEAN CELL VOLUME 96.4 fl (80-96); MEAN PLT VOLUME 7.2 fl (7.5-11.1); MONO % 7.8 % (3.8-10.2); NEUT % 63.7 % (42.8-82.8); PLATELET COUNT 259 K/MM3 (134-434); RBC 4.77 M/mm3 (3.60-5.2); RDW 14.1 % (11.6-15.6); WHITE BLOOD COUNT 8.3 K/mm3 (4.0-10.8)
[2018-02-18 18:06] LABS: ACTIVATED PTT 31.9 SECONDS (25.2-36.5)
[2018-02-18 18:08] LABS: ALBUMIN 4.2 g/dl (3.5-5.0); ALK PHOS 49 U/L (32-92); ANION GAP 9 (8-16); BILIRUBIN,TOTAL 0.6 mg/dl (0.2-1.0); BLOOD UREA NITROGEN 19 mg/dl (7-18); CALCIUM 9.8 mg/dl (8.4-10.2); CHLORIDE 91 mmol/L (98-107); CO2 29 mmol/L (22-28); CREATININE 0.5 mg/dl (0.6-1.3); GLUCOSE,RANDOM 101 mg/dl (74-106); MAGNESIUM 1.7 mg/dL (1.8-2.4); PHOSPHOROUS 3.2 mg/dl (2.5-4.6); POTASSIUM 4.9 mmol/L (3.5-5.1); SGOT/AST 17 U/L (10-42); SGPT/ALT 11 U/L (10-40); SODIUM 129 mmol/L (136-145); TOT PROT 7.1 g/dl (6.4-8.3)
[2018-02-18 18:11] LABS: INR 0.95 (0.82-1.09); PROTHROMBIN TIME (PATIENT) 10.7 SEC (10.2-13.0)
[2018-02-18] MEDS ORDERED: AZITHROMYCIN IVPB 500 MG in DEXTROSE 5%-WATER - 250 ML IVPB ONE (18:17)
[2018-02-18 18:26] LABS: URINE APPEARANCE Clear; URINE BILIRUBIN 1+ (NEGATIVE); URINE COLOR Yellow; URINE GLUCOSE (UA) Negative (NEGATIVE); URINE KETONE 2+ (NEGATIVE); URINE LEUK ESTERASE Negative (NEGATIVE); URINE NITRITE Negative (NEGATIVE); URINE PROTEIN Negative (NEGATIVE); URINE UROBILINOGEN 0.2 (0.2-1.0)
[2018-02-18 18:42] LABS: AMORP URATES FEW /hpf (NONE SEEN); EPI CELLS MODERATE /HPF; URINE BACTERIA FEW /hpf (NEGATIVE); URINE WBC 0-2 (0-5)
[2018-02-18] MEDS ORDERED: AZITHROMYCIN 500 MG VIAL IVPB ONE (18:43)
[2018-02-18] MEDS ORDERED: CEFTRIAXONE 1,000 MG in DEXTROSE 5%-WATER - 50 ML IVPB ONE (18:48)
[2018-02-18] MEDS ORDERED: cefTRIAXone SODIUM 1 GM VIAL ONE (19:09)
[2018-02-18] MEDS ORDERED: ALBUTEROL SO4 2.5/IPRATROPIUM 0.5 INH SOL 3 ML VIAL.NEB. NEB PRN (19:25)
--- NOTE | 2018-02-18 20:11 | PDOC ---
*Physical Exam - Vital Signs Last Vital Signs Temp Pulse Resp BP Pulse Ox 97.8 F 85 18 120/56 95 02/18/18 16:58 02/18/18 19:29 02/18/18 19:29 02/18/18 19:29 02/18/18 19:29 ED Treatment Course - LABORATORY CBC & Chemistry Diagram: 02/18/18 17:30 02/18/18 17:30 - ADDITIONAL ORDERS Additional order review: Laboratory Results 02/18/18 02/18/18 02/18/18 17:30 17:30 17:30 PT with INR INR PTT (Actin FS) Sodium 129 L Potassium 4.9 Chloride 91 L Carbon Dioxide 29 H Anion Gap 9 BUN 19 H Creatinine 0.5 L Creat Clearance w eGFR > 60 Random Glucose 101 D Lactic Acid 1.1 Calcium 9.8 Phosphorus 3.2 Magnesium 1.7 L Total Bilirubin 0.6 AST 17 ALT 11 Alkaline Phosphatase 49 Troponin I < 0.03 Total Protein 7.1 Albumin 4.2 Urine Color Urine Appearance Urine pH Ur Specific [place] Urine Protein Urine Glucose (UA) Urine Ketones Urine Blood Urine Nitrite Urine Bilirubin Urine Urobilinogen Ur Leukocyte Esterase Urine RBC Urine WBC Ur Epithelial Cells Amorphous Urates Urine Bacteria 02/18/18 02/18/18 17:30 17:30 PT with INR 10.7 INR 0.95 L PTT (Actin FS) 31.9 Sodium Potassium Chloride Carbon Dioxide Anion Gap BUN Creatinine Creat Clearance w eGFR Random Glucose Lactic Acid Calcium Phosphorus Magnesium Total Bilirubin AST ALT Alkaline Phosphatase Troponin I Total Protein Albumin Urine Color Yellow Urine Appearance Clear Urine pH 6.0 Ur Specific [place] 1.020 Urine Protein Negative Urine Glucose (UA) Negative Urine Ketones 2+ H Urine Blood Trace-intact H Urine Nitrite Negative Urine Bilirubin 1+ H Urine Urobilinogen 0.2 Ur Leukocyte Esterase Negative Urine RBC 2-5 Urine WBC 0-2 Ur Epithelial Cells Moderate Amorphous Urates Few Urine Bacteria Few 02/18/18 17:30 RBC 4.77 MCV 96.4 H MCHC 34.0 RDW 14.1 MPV 7.2 L Neutrophils % 63.7 Lymphocytes % 25.8 Monocytes % 7.8 Eosinophils % 1.2 Basophils % 1.5 - Medications Given in the ED: ED Medications Discontinued Medications Generic Name Dose Route Start Last Admin Trade Name Freq PRN Reason Stop Dose Admin Albuterol/Ipratropium 3 amp 02/18/18 17:15 02/18/18 18:05 Duoneb - NEB 02/18/18 17:16 3 amp ONCE ONE Administration Azithromycin 500 mg/ Dextrose 250 mls @ 250 mls/hr 02/18/18 18:17 02/18/18 19 :04 IVPB 02/18/18 19:16 250 mls/hr ONCE ONE Administration Ceftriaxone Sodium 1,000 mg/ 50 mls @ 100 mls/hr 02/18/18 18:48 02/18/18 20: 01 Dextrose IVPB 02/18/18 19:17 100 mls/hr ONCE ONE Administration Magnesium Sulfate 2 gm 02/18/18 17:15 02/18/18 18:05 Magnesium Sulfate IVPB 02/18/18 17:16 2 gm ONCE ONE Administration Methylprednisolone Sodium Succinate 125 mg 02/18/18 17:15 02/18/18 17:49 Solu-Medrol - IVPB 02/18/18 17:16 125 mg ONCE ONE Administration *DC/Admit/Observation/Transfer Diagnosis at time of Disposition: COPD exacerbation Pneumonia Qualifiers: Pneumonia type: due to unspecified organism Laterality: unspecified laterality Lung location: unspecified part of lung Qualified Code(s): J18.9 - Pneumonia, unspecified organism - Discharge Dispostion Condition at time of disposition: Stable Decision to Admit order: Yes - Referrals Referrals: Ruby Reid MD [Primary Care Provider] - - Patient Instructions - Post Discharge Activity
--- NOTE | 2018-02-18 21:31 | HP ---
CHIEF COMPLAINT: Increased SOB, Orthopnea, Cough PCP: Dr. Kimberlyn Suárez HISTORY OF PRESENT ILLNESS: This is a 62 y/o woman with a significant medical history of COPD (no O2), Seizure Disorder (on Keppra, Depakote), R- Breast Ca (s/p reconstruction, lymph node removal, RT), Hypertension, Hypothyroidism, Adrenal Insufficiency, Chronic Lumbar Disc Disease. Who presents to the ED with increased SOB, Orthopena, lumbar pain,and productive cough x 4 days. Patient reports having Pneumonia last September and that the pain and breathing is similar. Patient denies fever, chills. Patient denies CP, AP, N/V/D, dysuria. 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 [employer] Family History: Mother: Brain Tumor, Epilepsy Brother: Epilepsy Daughter: Brain Aneurysm, HTN, Obesity Allergies No Known Allergies Allergy (Verified 02/18/18 16:58) HOME MEDICATIONS: Home Medications Medication Instructions Recorded Divalproex Sodium [Depakote] 1,000 mg PO DAILY 09/22/17 Divalproex Sodium [Depakote] 1,500 mg PO HS 09/22/17 levETIRAcetam [Keppra -] 500 mg PO BID 09/22/17 Budesonide/Formeterol Fumarate 2 puff IH BID #1 inhaler 09/27/17 [SYMBICORT 160/4.5mcg -] Levothyroxine [Synthroid -] 125 mcg PO DAILY@0700 #30 tablet 09/27/17 Polyethylene Glycol 3350 [Miralax 17 gm PO DAILY #1 bottle 09/27/17 119 gm Btl -] Tiotropium [place] [Spiriva] 1 puff IH DAILY #1 inh 09/27/17 Acetaminophen [Tylenol] 650 mg PO PRN 02/18/18 Anastrozole [Arimidex -] 1 mg PO 02/18/18 Cyclobenzaprine HCl [Flexeril 10 10 mg PO BID PRN 02/18/18 mg] Escitalopram Oxalate [Lexapro Oral 5 mg PO DAILY 02/18/18 Solution -] Losartan Potassium 50 mg PO 02/18/18 Rabeprazole Sodium [Aciphex] 20 mg PO 02/18/18 REVIEW OF SYSTEMS CONSTITUTIONAL: Absent: fever, chills, diaphoresis, generalized weakness, malaise, loss of appetite, weight change HEENT: Absent: rhinorrhea, nasal congestion, throat pain, throat swelling, difficulty swallowing, mouth swelling, ear pain, eye pain, visual changes CARDIOVASCULAR: Absent: chest pain, syncope, palpitations, irregular heart rate, lightheadedness , peripheral edema RESPIRATORY: cough, shortness of breath, orthopnea, wheezing Absent: dyspnea with exertion, stridor, hemoptysis GASTROINTESTINAL: Absent: abdominal pain, abdominal distension, nausea, vomiting, diarrhea, constipation, melena, hematochezia GENITOURINARY: Absent: dysuria, frequency, urgency, hesitancy, hematuria, flank pain, genital pain MUSCULOSKELETAL: back pain Absent: myalgia, arthralgia, joint swelling, neck pain SKIN: Absent: rash, itching, pallor HEMATOLOGIC/IMMUNOLOGIC: Absent: easy bleeding, easy bruising, lymphadenopathy, frequent infections ENDOCRINE: Absent: unexplained weight gain, unexplained weight loss, heat intolerance, cold intolerance NEUROLOGIC: Absent: headache, focal weakness or paresthesias, dizziness, unsteady gait, seizure, mental status changes, bladder or bowel incontinence PSYCHIATRIC: Absent: anxiety, depression, suicidal or homicidal ideation, hallucinations. PHYSICAL EXAMINATION Vital Signs - 24 hr 02/18/18 02/18/18 02/18/18 16:58 18:11 19:29 Temperature 97.8 F Pulse Rate 72 Pulse Rate [ 62 85 Right] Respiratory 17 18 Rate Blood Pressure 159/73 Blood Pressure 120/56 120/56 [Left Arm] O2 Sat by Pulse 97 96 95 Oximetry (%) GENERAL: Awake, alert, and fully oriented, in no acute distress. HEAD: Normal with no signs of trauma. EYES: Pupils equal, round and reactive to light, extraocular movements intact, sclera anicteric, conjunctiva clear. No lid lag. EARS, NOSE, THROAT: Ears normal, nares patent, oropharynx clear without exudates. Moist mucous membranes. NECK: Normal range of motion, supple without lymphadenopathy, JVD, or masses. LUNGS: Breath sounds scattered diffuse wheeze, diminished at R- base. no crackles. No accessory muscle use. HEART: Regular rate and rhythm, normal S1 and S2 without murmur, rub or gallop. ABDOMEN: Soft, nontender, not distended, normoactive bowel sounds, no guarding, no rebound, no masses. No hepatomegaly or splenomegaly. MUSCULOSKELETAL: Normal range of motion at all joints. No bony deformities or tenderness. No CVA tenderness. UPPER EXTREMITIES: 2+ pulses, warm, well-perfused. No cyanosis. No clubbing. No peripheral edema. LOWER EXTREMITIES: 2+ pulses, warm, well-perfused. No calf tenderness. No peripheral edema. NEUROLOGICAL: Cranial nerves II-XII intact. Normal speech. Gait not observed. PSYCHIATRIC: Cooperative. Good eye contact. Appropriate mood and affect. SKIN: Warm, dry, normal turgor, no rashes or lesions noted, normal capillary refill. Laboratory Results - last 24 hr 02/18/18 02/18/18 02/18/18 17:30 17:30 17:30 WBC 8.3 RBC 4.77 Hgb 15.6 H Hct 46.0 H MCV 96.4 H MCH 32.7 MCHC 34.0 RDW 14.1 Plt Count 259 MPV 7.2 L Absolute Neuts (auto) 5.2 Neutrophils % 63.7 Lymphocytes % 25.8 Monocytes % 7.8 Eosinophils % 1.2 Basophils % 1.5 PT with INR 10.7 INR 0.95 L PTT (Actin FS) 31.9 Sodium Potassium Chloride Carbon Dioxide Anion Gap BUN Creatinine Creat Clearance w eGFR Random Glucose Lactic Acid Calcium Phosphorus Magnesium Total Bilirubin AST ALT Alkaline Phosphatase Troponin I Total Protein Albumin Urine Color Yellow Urine Appearance Clear Urine pH 6.0 Ur Specific [place] 1.020 Urine Protein Negative Urine Glucose (UA) Negative Urine Ketones 2+ H Urine Blood Trace-intact H Urine Nitrite Negative Urine Bilirubin 1+ H Urine Urobilinogen 0.2 Ur Leukocyte Esterase Negative Urine RBC 2-5 Urine WBC 0-2 Ur Epithelial Cells Moderate Amorphous Urates Few Urine Bacteria Few 02/18/18 02/18/18 02/18/18 17:30 17:30 17:30 WBC RBC Hgb Hct MCV MCH MCHC RDW Plt Count MPV Absolute Neuts (auto) Neutrophils % Lymphocytes % Monocytes % Eosinophils % Basophils % PT with INR INR PTT (Actin FS) Sodium 129 L Potassium 4.9 Chloride 91 L Carbon Dioxide 29 H Anion Gap 9 BUN 19 H Creatinine 0.5 L Creat Clearance w eGFR > 60 Random Glucose 101 D Lactic Acid 1.1 Calcium 9.8 Phosphorus 3.2 Magnesium 1.7 L Total Bilirubin 0.6 AST 17 ALT 11 Alkaline Phosphatase 49 Troponin I < 0.03 Total Protein 7.1 Albumin 4.2 Urine Color Urine Appearance Urine pH Ur Specific [place] Urine Protein Urine Glucose (UA) Urine Ketones Urine Blood Urine Nitrite Urine Bilirubin Urine Urobilinogen Ur Leukocyte Esterase Urine RBC Urine WBC Ur Epithelial Cells Amorphous Urates Urine Bacteria ASSESSMENT/PLAN: This is a 62 y/o woman Placed in Observation for COPD Exacerbation, Pneumonia, Hyponatremia for further evaluation of their emergent condition. Plan: 1. Acute COPD Exacerbation - Likely secondary to Pneumonia - Chest Xray image- ?RML, RLL patchy infiltrates, awaiting official read - Solumederol given in ED, will continue w/taper - Appreciate Pulmonology consult - Continue ABX - Duonebs - Continue home meds -Counseled on smoking cessation - Monitor vitals 2. Community Acquired Pneumonia - Chest xray reviewed - Blood Cultures pending - Legionella pending - Sputum Culture pending - Continue Ceftriaxone, Zithromax - O2 - Smoking Cessation - Monitor vitals 3. Hyponatremia - chronic at baseline - Will continue to monitor and treat accordingly - Consider Salt Tabs po - Monitor vitals 4. Hypomagnesiumia - Likely secondary to dehydration - Repleted with MG Sulfate in ED - Repeat Mg in am 5.Seizure Disorder - well controlled - Continue Keppra, Depakote - Seizure Precautions - Keppra level in am 6. Right Breast Ca - s/p lumpectomy - s/p reconstructive sx - remisison x 2yrs, per pt - Continue Armidex - f/u [facility] Oncology outpatient FEN - PO fluids as tolereted - Monitor Na, Mg - Low Na Diet Code Status: Full Code Dispo: Observation Problem List - Problem (1) COPD exacerbation Code(s): J44.1 - CHRONIC OBSTRUCTIVE PULMONARY DISEASE W (ACUTE) EXACERBATION (2) Pneumonia Code(s): J18.9 - PNEUMONIA, UNSPECIFIED ORGANISM Qualifiers: Pneumonia type: due to unspecified organism Laterality: unspecified laterality Lung location: unspecified part of lung Qualified Code(s): J18.9 - Pneumonia, unspecified organism (3) Hypertension Code(s): I10 - ESSENTIAL (PRIMARY) HYPERTENSION Qualifiers: (4) Hypothyroidism Code(s): E03.9 - HYPOTHYROIDISM, UNSPECIFIED Qualifiers: (5) Seizure disorder Code(s): G40.909 - EPILEPSY, UNSP, NOT INTRACTABLE, WITHOUT STATUS EPILEPTICUS (6) Breast cancer, right breast Code(s): C50.911 - MALIGNANT NEOPLASM OF UNSP SITE OF RIGHT FEMALE BREAST (7) Lumbar disc disease Code(s): M51.9 - UNSP THORACIC, THORACOLUM AND LUMBOSACR INTVRT DISC DISORDER Visit type - Emergency Visit Emergency Visit: Yes ED Registration Date: 02/18/18 Care time: The patient presented to the Emergency Department on the above date and was hospitalized for further evaluation of their emergent condition. - New Patient This patient is new to me today: Yes Date on this admission: 02/18/18 - Critical Care Critical Care patient: No Hospitalist Screening - Colonoscopy Questionnaire Colonoscopy Questionnaire: Colonoscopy Questionnaire - Patient: 50 - 75 years old and never had a screening colonoscopy: No History of colon or rectal polyps, or CA: No History of IBD, Crohn's disease or UC: No History of abdominal radiation therapy as a child: No - Relative: 1 with colon or rectal CA, or polyps at age 60 or younger: No Colon or rectal CA diagnosed at age 45 or younger: No Multiple relatives with colon or rectal CA: No - Outcome: Screening Result: Negative Screen
[2018-02-18] MEDS ORDERED: DIVALPROEX SODIUM 500 MG TABLET E.C. PO SCH (22:00)
[2018-02-18] MEDS ORDERED: HEPARIN NA (PORCINE) 5,000 UNITS/ML 1ML VIAL SQ SCH (22:00)
[2018-02-18] MEDS: levETIRAcetam 500 MG TABLET (FP) PO SCH (22:17)
[2018-02-18] MEDS: CYCLOBENZAPRINE HCL 10 MG TABLET (FP) PO PRN (22:17)
[2018-02-18] MEDS: HEPARIN NA (PORCINE) 5,000 UNITS/ML 1ML VIAL SQ SCH (22:17)
[2018-02-18 23:18] VITALS: BMI 25.4
[2018-02-18] MEDS: BUDESONIDE/FORMETEROL FUMARATE 160/4.5 mcg INHALER IH SCH (23:32)
[2018-02-19] MEDS: methylPREDNISolone NA SUCC 40 MG/1 ML VIAL IVPUSH SCH ×2 (02:16→09:29)
[2018-02-19] MEDS ORDERED: ACETAMINOPHEN 325 MG TABLET (FP) PO PRN (06:12)
[2018-02-19] MEDS ORDERED: LEVOTHYROXINE NA 125 MCG TABLET (FP) PO SCH (07:00)
[2018-02-19 08:42] LABS: BASO % 0.6 % (0-2.0); HEMATOCRIT 46.5 % (32.4-45.2); HEMOGLOBIN 15.6 GM/dl (10.7-15.3); LYMPH % 10.4 % (8-40); MCH 32.4 pg (25.7-33.7); MCHC 33.6 g/dl (32.0-36.0); MEAN CELL VOLUME 96.5 fl (80-96); MEAN PLT VOLUME 7.5 fl (7.5-11.1); MONO % 0.7 % (3.8-10.2); NEUT % 88.3 % (42.8-82.8); PLATELET COUNT 254 K/MM3 (134-434); RBC 4.82 M/mm3 (3.60-5.2); RDW 13.6 % (11.6-15.6); WHITE BLOOD COUNT 10.4 K/mm3 (4.0-10.8)
[2018-02-19] MEDS: HEPARIN NA (PORCINE) 5,000 UNITS/ML 1ML VIAL SQ SCH (09:31)
[2018-02-19] MEDS: BUDESONIDE/FORMETEROL FUMARATE 160/4.5 mcg INHALER IH SCH (09:31)
[2018-02-19] MEDS: levETIRAcetam 500 MG TABLET (FP) PO SCH (09:31)
[2018-02-19 09:45] LABS: N-TERMINAL BNP 304.96 pg/ml (5-125)
[2018-02-19 09:47] LABS: ANION GAP 10 (8-16); BLOOD UREA NITROGEN 17 mg/dl (7-18); CALCIUM 9.6 mg/dl (8.4-10.2); CHLORIDE 95 mmol/L (98-107); CO2 25 mmol/L (22-28); GLUCOSE,RANDOM 154 mg/dl (74-106); MAGNESIUM 1.8 mg/dL (1.8-2.4); POTASSIUM 4.5 mmol/L (3.5-5.1); SODIUM 130 mmol/L (136-145)
[2018-02-19] MEDS ORDERED: AZITHROMYCIN IVPB 250 ML IVPB SCH (10:00)
[2018-02-19] MEDS ORDERED: TIOTROPIUM BROMIDE 2.5 MCG (SPIRIVA) RESPIMAT INHALER IH SCH (10:00)
[2018-02-19] MEDS: CYCLOBENZAPRINE HCL 10 MG TABLET (FP) PO PRN (10:00)
[2018-02-19] MEDS ORDERED: LOSARTAN POTASSIUM 50 MG TABLET (FP) PO SCH (10:00)
[2018-02-19] MEDS ORDERED: DIVALPROEX SODIUM 500 MG TABLET E.C. PO SCH (10:00)
[2018-02-19] MEDS ORDERED: CEFTRIAXONE 1 GM/50 ML BAG IVPB SCH (10:00)
[2018-02-19] MEDS ORDERED: PANTOPRAZOLE 40 MG TABLET (FP) PO SCH (10:00)
[2018-02-19] MEDS ORDERED: ANASTROZOLE 1 MG TABLET PO SCH (10:00)
[2018-02-19 10:02] LABS: CREATININE < 0.6 mg/dl (0.6-1.3)
[2018-02-19] MEDS ORDERED: PT OWN MED DRAWER 7, Y5N ONE (10:12)
--- NOTE | 2018-02-19 10:19 | DS ---
Physical Exam: SUBJECTIVE: Patient seen and examined, patient is ambulatory throughout nursing station, denies any chest pain or shortness of breath reports feeling well, speaking in full sentences, tolerating diet, requesting discharge home. OBJECTIVE: This is a 62 y/o woman with a significant medical history of COPD ( no O2), Seizure Disorder (on Keppra, Depakote), R- Breast Ca (s/p reconstruction , lymph node removal, RT), Hypertension, Hypothyroidism, Adrenal Insufficiency, Chronic Lumbar Disc Disease. Who presents to the ED with increased SOB, Orthopena, lumbar pain,and productive cough x 4 days. Patient reports having Pneumonia last September and that the pain and breathing is similar. Patient denies fever, chills. Patient denies CP, AP, N/V/D, dysuria. ER course was notable for: (1) Chest Xray- ?RML, RLL patchy infiltrates (2) Mg 1.7 (3) Na 129 Vital Signs Period Temp Pulse Resp BP Sys/Kim Pulse Ox Last 24 Hr 97.7 F-98.1 F 62-86 17-18 120-159/56-73 95-97 PHYSICAL EXAM GENERAL: The patient is awake, alert, and fully oriented, in no acute distress. HEAD: Normal with no signs of trauma. EYES: PERRL, extraocular movements intact, sclera anicteric, conjunctiva clear. ENT: Ears normal, nares patent, oropharynx clear without exudates, moist mucous membranes. NECK: Trachea midline, full range of motion, supple. LUNGS: Breath sounds equal, clear to auscultation bilaterally, no wheezes, no crackles, no accessory muscle use. HEART: Regular rate and rhythm, S1, S2 without murmur, rub or gallop. ABDOMEN: Soft, nontender, nondistended, normoactive bowel sounds, no guarding, no rebound, no hepatosplenomegaly, no masses. EXTREMITIES: 2+ pulses, warm, well-perfused, no edema. NEUROLOGICAL: Cranial nerves II through XII grossly intact. Normal speech, gait not observed. PSYCH: Normal mood, normal affect. SKIN: Warm, dry, normal turgor, no rashes or lesions noted. LABS Laboratory Results - last 24 hr 02/18/18 02/18/18 02/18/18 17:30 17:30 17:30 WBC 8.3 RBC 4.77 Hgb 15.6 H Hct 46.0 H MCV 96.4 H MCH 32.7 MCHC 34.0 RDW 14.1 Plt Count 259 MPV 7.2 L Absolute Neuts (auto) 5.2 Neutrophils % 63.7 Lymphocytes % 25.8 Monocytes % 7.8 Eosinophils % 1.2 Basophils % 1.5 PT with INR 10.7 INR 0.95 L PTT (Actin FS) 31.9 Sodium Potassium Chloride Carbon Dioxide Anion Gap BUN Creatinine Creat Clearance w eGFR Random Glucose Lactic Acid Calcium Phosphorus Magnesium Total Bilirubin AST ALT Alkaline Phosphatase Troponin I B-Natriuretic Peptide Total Protein Albumin Urine Color Yellow Urine Appearance Clear Urine pH 6.0 Ur Specific [place] 1.020 Urine Protein Negative Urine Glucose (UA) Negative Urine Ketones 2+ H Urine Blood Trace-intact H Urine Nitrite Negative Urine Bilirubin 1+ H Urine Urobilinogen 0.2 Ur Leukocyte Esterase Negative Urine RBC 2-5 Urine WBC 0-2 Ur Epithelial Cells Moderate Amorphous Urates Few Urine Bacteria Few 02/18/18 02/18/18 02/18/18 17:30 17:30 17:30 WBC RBC Hgb Hct MCV MCH MCHC RDW Plt Count MPV Absolute Neuts (auto) Neutrophils % Lymphocytes % Monocytes % Eosinophils % Basophils % PT with INR INR PTT (Actin FS) Sodium 129 L Potassium 4.9 Chloride 91 L Carbon Dioxide 29 H Anion Gap 9 BUN 19 H Creatinine 0.5 L Creat Clearance w eGFR > 60 Random Glucose 101 D Lactic Acid 1.1 Calcium 9.8 Phosphorus 3.2 Magnesium 1.7 L Total Bilirubin 0.6 AST 17 ALT 11 Alkaline Phosphatase 49 Troponin I < 0.03 B-Natriuretic Peptide Total Protein 7.1 Albumin 4.2 Urine Color Urine Appearance Urine pH Ur Specific [place] Urine Protein Urine Glucose (UA) Urine Ketones Urine Blood Urine Nitrite Urine Bilirubin Urine Urobilinogen Ur Leukocyte Esterase Urine RBC Urine WBC Ur Epithelial Cells Amorphous Urates Urine Bacteria 02/19/18 02/19/18 07:15 07:15 WBC 10.4 RBC 4.82 Hgb 15.6 H Hct 46.5 H MCV 96.5 H MCH 32.4 MCHC 33.6 RDW 13.6 Plt Count 254 MPV 7.5 Absolute Neuts (auto) 9.1 Neutrophils % 88.3 H Lymphocytes % 10.4 Monocytes % 0.7 L Eosinophils % 0.0 Basophils % 0.6 PT with INR INR PTT (Actin FS) Sodium 130 L Potassium 4.5 Chloride 95 L Carbon Dioxide 25 Anion Gap 10 BUN 17 Creatinine < 0.6 L Creat Clearance w eGFR > 60 Random Glucose 154 H D Lactic Acid Calcium 9.6 Phosphorus Magnesium 1.8 Total Bilirubin AST ALT Alkaline Phosphatase Troponin I B-Natriuretic Peptide 304.96 H Total Protein Albumin Urine Color Urine Appearance Urine pH Ur Specific [place] Urine Protein Urine Glucose (UA) Urine Ketones Urine Blood Urine Nitrite Urine Bilirubin Urine Urobilinogen Ur Leukocyte Esterase Urine RBC Urine WBC Ur Epithelial Cells Amorphous Urates Urine Bacteria Microbiology 02/18/18 17:30 Blood - Peripheral Venous Blood Culture - Preliminary NO GROWTH OBTAINED AFTER 72 HOURS, INCUBATION TO CONTINUE FOR 2 DAYS. 02/18/18 17:30 Blood - Peripheral Venous Blood Culture - Preliminary NO GROWTH OBTAINED AFTER 72 HOURS, INCUBATION TO CONTINUE FOR 2 DAYS. 02/18/18 17:30 Urine - Urine Clean Catch Urine Culture - Final Contaminated: Please Repeat 02/18/18 08:30 Urine For Antigen Detection Legionella Antigen - Final, negative 02/18/18 08:30 Urine For Antigen Detection Streptococcus pneumoniae Antigen (M - Final, negative HOSPITAL COURSE: 1. Acute COPD Exacerbation - Likely secondary to Pneumonia - Chest Xray image-no acute infilitrate or effusion noted - Solumederol given in ED, started on solumedrol with transition to prednisone will continue w/taper - Continue ABX - Duonebs - Continue home meds -Counseled on smoking cessation - Monitor vitals 2. Hyponatremia - chronic at baseline - Will continue to monitor and treat accordingly 4. Hypomagnesiumia - Likely secondary to dehydration, repleted 5.Seizure Disorder - well controlled - Continue Keppra, Depakote - Seizure Precautions - Keppra level in am 6. Right Breast Ca - s/p lumpectomy - s/p reconstructive sx - remisison x 2yrs, per pt - Continue Armidex - f/u [facility] Oncology outpatient Date of Admission:02/18/18 Date of Discharge: 02/19/18 Minutes to complete discharge: 45 Discharge Summary Reason For Visit: CHRONIC OBSTRUCTIVE PULMONARY DISEASE W (ACUTE) EX Current Active Problems COPD exacerbation (Acute) Pneumonia (Acute) Condition: Improved - Instructions Diet, Activity, Other Instructions: continue prednisone as prescribed please take prednisone with food Continue Zithromax for the next 4 days Albuterol nebulizer every 4 hours as needed for shortness of breath or wheezing Please follow up with your retail merchandising manager Dr Bustillo within 1 week if any new or persistent symptoms develop please return to the emergency department Referrals: Jacqueline Tierney MD [Non Staff, Medical] - 2 Weeks Ruby Reid MD [Primary Care Provider] - Ludin Jefferson MD [Staff Physician] - 2 Weeks Disposition: HOME - Home Medications Comprehensive Discharge Medication List: Ambulatory Orders Divalproex Sodium [Depakote] 1,000 mg PO DAILY 09/22/17 Divalproex Sodium [Depakote] 1,500 mg PO HS 09/22/17 levETIRAcetam [Keppra -] 500 mg PO BID 09/22/17 Budesonide/Formeterol Fumarate [SYMBICORT 160/4.5mcg -] 2 puff IH BID #1 inhaler 09/27/17 Levothyroxine [Synthroid -] 125 mcg PO DAILY@0700 #30 tablet 09/27/17 Polyethylene Glycol 3350 [Miralax 119 gm Btl -] 17 gm PO DAILY #1 bottle Tiotropium [place] [Spiriva] 1 puff IH DAILY #1 inh 09/27/17 Acetaminophen [Tylenol] 650 mg PO PRN 02/18/18 Anastrozole [Arimidex -] 1 mg PO 02/18/18 Cyclobenzaprine HCl [Flexeril 10 mg] 10 mg PO BID PRN 02/18/18 Losartan Potassium 50 mg PO 02/18/18 Rabeprazole Sodium [Aciphex] 20 mg PO 02/18/18 Escitalopram Oxalate [Lexapro -] 5 mg PO DAILY 02/19/18 This patient is new to me today: No Emergency Visit: Yes ED Registration Date: 02/18/18 Care time: The patient presented to the Emergency Department on the above date and was hospitalized for further evaluation of their emergent condition. Critical Care patient: No - Discharge Referral Referred to [facility] Med P.C.: No
[2018-02-19] MEDS ORDERED: MAGNESIUM 1GM/D5W 100ML - 100 ML IVPB IVPB ONE (11:00)
[2018-02-19] MEDS ORDERED: ALBUTEROL SO4 2.5/IPRATROPIUM 0.5 INH SOL 3 ML VIAL.NEB. NEB ONE (11:00)
--- NOTE | 2018-02-19 11:53 | EKG ---
Test Reason : Blood Pressure : / mmHG Vent. Rate : 060 BPM Atrial Rate : 060 BPM P-R Int : 130 ms QRS Dur : 084 ms QT Int : 428 ms P-R-T Axes : 075 062 038 degrees QTc Int : 428 ms NORMAL SINUS RHYTHM CANNOT RULE OUT ANTERIOR INFARCT , AGE UNDETERMINED ABNORMAL ECG WHEN COMPARED WITH ECG OF 22-SEP-2017 10:28, NO SIGNIFICANT CHANGE WAS FOUND Confirmed by YVONNE FORDE MD ([id number]) on 02/19/2018 11:53:21 AM Referred By: ELISABETH VALLEJO Confirmed By:YVONNE FORDE MD
[2018-02-19 14:05] VITALS: BP 128/66; PULSE 83; TEMP 98.6
== END 2018-02-19 13:50 | disposition home or self-care (01) ==
LOC: FER 16:57 → FM/S 19:06
PROVIDERS: ADMIT Internal Medicine; ATTEND Nurse Practitioner Family
PROC: 3E03329 Introduction of Other Anti-infective into Peripheral Vein, Percutaneous Approach (ICD-10-PCS; principal; 2018-02-18)
PROC: 3E033NZ Introduction of Analgesics, Hypnotics, Sedatives into Peripheral Vein, Percutaneous Approach (ICD-10-PCS; 2018-02-18)
PROC: 3E0333Z Introduction of Anti-inflammatory into Peripheral Vein, Percutaneous Approach (ICD-10-PCS; 2018-02-18)
PROC: 3E033GC Introduction of Other Therapeutic Substance into Peripheral Vein, Percutaneous Approach (ICD-10-PCS; 2018-02-18)
PROC: 3E013GC Introduction of Other Therapeutic Substance into Subcutaneous Tissue, Percutaneous Approach (ICD-10-PCS; 2018-02-18)
PROC: 3E0F7GC Introduction of Other Therapeutic Substance into Respiratory Tract, Via Natural or Artificial Opening (ICD-10-PCS; 2018-02-18)
DX: J44.1 Chronic obstructive pulmonary disease with (acute) exacerbation (principal); J18.9 Pneumonia, unspecified organism; E87.1 Hypo-osmolality and hyponatremia; E83.42 Hypomagnesemia; I10 Essential (primary) hypertension; G40.909 Epilepsy, unspecified, not intractable, without status epilepticus; K21.9 Gastro-esophageal reflux disease without esophagitis; F17.210 Nicotine dependence, cigarettes, uncomplicated; E03.9 Hypothyroidism, unspecified; Z85.3 Personal history of malignant neoplasm of breast; Z79.82 Long term (current) use of aspirin
CPT/HCPCS: 36415; 71046-TC-FY; 80048; 80053; 81003; 81015; 83605; 83735; 83880; 84100; 84443; 84484; 85025; 85610; 85730; 87040; 87086; 87899; 93005; 94640; 99284-25; G0378; J1644; J7620

== ENCOUNTER 2018-03-25 15:39 | Inpatient (IN) | payer OTHER ==
[2018-03-25] MEDS ORDERED: ALBUTEROL SO4 2.5/IPRATROPIUM 0.5 INH SOL 3 ML VIAL.NEB. NEB ONE ×5 (16:16→22:23)
[2018-03-25] MEDS ORDERED: ACETAMINOPHEN 1000 MG/100 ML VIAL (NON FORMULARY) IVPB ONE (17:06)
--- NOTE | 2018-03-25 17:20 | PDOC ---
History of Present Illness - General Chief Complaint: Shortness of Breath Stated Complaint: COPD Time Seen by Provider: 03/25/18 15:52 History Source: Patient Exam Limitations: No Limitations - History of Present Illness Initial Comments: 03/25/18 17:03 Pt is a 62yo F with PMH of COPD, htn,hypothyroid presenting to ED for worsening SOB for 4 days. Pt went to urgent care yesterday and was given prednisone. Pt gets SOB when walking short distances and when talking. Pt says she uses her nebulizer, Spiriva and Symbicort but feels as if she is not breathing it in. She admits to headache, back pain and diarrhea (she thinks it was from the canned soup she drank yesterday). Denies n/v, abdominal pain, fever, chills, neck pain, urinary symptoms, neurological deficits. She was saturating at 93% RA , does not know her baseline. Does not use oxygen at home. She sees Dr. Richardson. She was recently hospitalized 1 month ago for COPD exacerbation and PNA. PCP: Elina Moncadam: Ronny PMHJ: see hpi PSH: R breast lumpectomy (2016) Meds: see med rec Alllergies: nkda Social: smokes 4 cigarettes/day. Was smoking 1ppd until a couple months ago Past History - Past Medical History Allergies/Adverse Reactions: Allergies Allergy/AdvReac Type Severity Reaction Status Date / Time No Known Allergies Allergy Verified 03/25/18 15:57 Home Medications: Ambulatory Orders Divalproex Sodium [Depakote] 1,000 mg PO DAILY 09/22/17 Divalproex Sodium [Depakote] 1,500 mg PO HS 09/22/17 levETIRAcetam [Keppra -] 500 mg PO BID 09/22/17 Budesonide/Formeterol Fumarate [SYMBICORT 160/4.5mcg -] 2 puff IH BID #1 inhaler 09/27/17 Levothyroxine [Synthroid -] 125 mcg PO DAILY@0700 #30 tablet 09/27/17 Polyethylene Glycol 3350 [Miralax 119 gm Btl -] 17 gm PO DAILY #1 bottle Tiotropium [place] [Spiriva] 1 puff IH DAILY #1 inh 09/27/17 Anastrozole [Arimidex -] 1 mg PO DAILY 02/18/18 Cyclobenzaprine HCl [Flexeril 10 mg] 10 mg PO BID PRN 02/18/18 Losartan Potassium 50 mg PO DAILY 02/18/18 Rabeprazole Sodium [Aciphex] 20 mg PO DAILY 02/18/18 Acetaminophen [Tylenol .Regular Strength -] 650 mg PO Q6H PRN tablet 02/19/18 Albuterol 0.083% Nebulizer Malgorzata [Ventolin 0.083% Nebulizer Soln -] 1 neb NEB Q4H PRN #120 vial 02/19/18 Prednisone [Deltasone] 40 mg PO DAILY 03/25/18 Anemia: No Asthma: No Cancer: Yes (RIGHT BREAST-DX 03/01) Cardiac Disorders: No CVA: No COPD: Yes CHF: No Dementia: No Diabetes: No GI Disorders: Yes (GERD) Disorders: Yes (URGE INCONTINENCE,CHRONIC CONSTIPATION) HTN: Yes Hypercholesterolemia: No Liver Disease: No Seizures: Yes Thyroid Disease: Yes - Surgical History Abdominal Surgery: No Appendectomy: No Cardiac Surgery: No Cholecystectomy: No Lung Surgery: No Neurologic Surgery: No Orthopedic Surgery: Yes (DISC SUGERY-1984, SPINAL FUSION 2010) - Suicide/Smoking/Psychosocial Hx Smoking Status: Yes Smoking History: Current every day smoker Have you smoked in the past 12 months: Yes Number of Cigarettes Smoked Daily: 10 If you are a former smoker, when did you quit?: 01/2016 Information on smoking cessation initiated: Yes 'Breaking Loose' booklet given: 04/11/16 Hx Alcohol Use: Yes Drug/Substance Use Hx: No Substance Use Type: Alcohol Hx Substance Use Treatment: No Review of Systems - Review of Systems Able to Perform ROS?: Yes Constitutional: No: Chills, Fever HEENTM: No: Eye Pain, Recent change in vision, Throat Pain Respiratory: Yes: Cough (productinve of yellow sputum), Shortness of Breath, SOB with Exertion Cardiac (ROS): Yes: Palpitations. No: Chest Pain, Lightheadedness, Syncope ABD/GI: Yes: Diarrhea. No: Blood Streaked Bowels, Constipated, Nausea, Vomiting : No: Burning, Dysuria, Flank Pain Musculoskeletal: Yes: Back Pain (chronic). No: Joint Pain Integumentary: Yes: Bruising (from previous needle sticks) Neurological: Yes: Headache. No: Numbness, Tingling, Tremors *Physical Exam - Vital Signs Last Vital Signs Temp Pulse Resp BP Pulse Ox 98.1 F 106 H 24 153/94 97 03/25/18 15:40 03/25/18 15:40 03/25/18 15:40 03/25/18 15:40 03/25/18 15:40 - Physical Exam General Appearance: Yes: Nourished, Appropriately Dressed, Mild Distress HEENT: positive: EOMI, RODRIGUEZ, Pharynx Normal. negative: Pale Conjunctivae, Scleral Icterus (R), Scleral Icterus (L), Pharyngeal Erythema, Tonsillar Exudate , Rhinorrhea, Sinus Tenderness Neck: positive: Trachea midline, Supple. negative: Lymphadenopathy (R), Lymphadenopathy (L) Respiratory/Chest: positive: Labored Respiration, Wheezing (in lung mederos bilaterally with expiration). negative: Normal Breath Sounds, Accessory Muscle Use, Crackles, Rhonchi, Stridor Cardiovascular: positive: Regular Rhythm, Tachycardia. negative: S1, S2, Edema , JVD, Murmur Vascular Pulses: Carotid (R): 2+, Carotid (L): 2+, Dorsalis-Pedis (R): 2+, Doralis-Pedis (L): 2+ Gastrointestinal/Abdominal: positive: Normal Bowel Sounds, Soft, Tenderness ( TTP RLQ). negative: Distended, Guarding, Rebound Musculoskeletal: negative: CVA Tenderness Extremity: positive: Normal Capillary Refill Integumentary: positive: Normal Color, Dry, Warm, Bruising (overlying previous IV sites. 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 NML intact, Fully Oriented, Alert, Normal Mood/ Affect, Normal Response, Motor Strength / ED Treatment Course - LABORATORY CBC & Chemistry Diagram: 03/25/18 17:48 03/25/18 17:48 - RADIOLOGY Radiology Studies Ordered: Category Date Time Status CHEST PA & LAT [RAD] Stat Radiology 03/25/18 15:55 Taken - Medications Given in the ED: ED Medications Discontinued Medications Generic Name Dose Route Start Last Admin Trade Name Freq PRN Reason Stop Dose Admin Albuterol/Ipratropium 1 amp 03/25/18 16:16 03/25/18 16:30 Duoneb - NEB 03/25/18 16:17 1 amp ONCE ONE Administration Medical Decision Making - Medical Decision Making 03/25/18 17:36 Pt is a 62yo F with PMH of COPD, htn,hypothyroid presenting to ED for worsening SOB for 4 days. COPD exacerbation v. PNA Low suspicion for PE (no recent travel, no tx of malignancy in the past 3 months , no recent surgery, no signs of DVT, PE not #1 dx) Low suspicion for ND (no substernal cp) however cardiac workup ordered. -cbc, cmp, pt/aptt (easy bruising), vbg, cxr, ekg, trop EKG: no AZAR or depressions, no t wave inversions. CXR: emphysematous lungs. No focal consolidations. Low suspicon for PNA. -pt given duonebs, solumedrol, azithro, tylenol for headache (pt said it helped in the past) Labs: wbc 12 (possibly due to steroid use) All other labs wnl. Pt is tachypneic and tachycardic with RA 02 of 93, unsure if this is baseline. Pt will be admitted for COPD exacerbation. *DC/Admit/Observation/Transfer Diagnosis at time of Disposition: COPD exacerbation - Discharge Dispostion Condition at time of disposition: Good Decision to Admit order: Yes - Referrals Referrals: Ludin Jefferson MD [Primary Care Provider] - - Patient Instructions - Post Discharge Activity
[2018-03-25] MEDS ORDERED: methylPREDNISolone NA SUCC 125 MG/2 ML VIAL IVPB ONE (17:21)
[2018-03-25] MEDS ORDERED: AZITHROMYCIN 500 MG TABLET PO ONE (17:21)
[2018-03-25] MEDS ORDERED: AZITHROMYCIN 500 MG TABLET ONE (17:40)
[2018-03-25] MEDS ORDERED: methylPREDNISolone NA SUCC 40 MG/1 ML VIAL ONE (17:40)
[2018-03-25] MEDS ORDERED: ACETAMINOPHEN INJECTION 100 ML IVPB ONE (17:40)
[2018-03-25 18:06] LABS: BASO % 0.2 % (0-2.0); HEMATOCRIT 46.8 % (32.4-45.2); HEMOGLOBIN 15.7 GM/dl (10.7-15.3); LYMPH % 12.8 % (8-40); MCH 32.4 pg (25.7-33.7); MCHC 33.4 g/dl (32.0-36.0); MEAN CELL VOLUME 96.9 fl (80-96); MEAN PLT VOLUME 7.2 fl (7.5-11.1); MONO % 6.2 % (3.8-10.2); NEUT % 80.8 % (42.8-82.8); PLATELET COUNT 347 K/MM3 (134-434); RBC 4.83 M/mm3 (3.60-5.2); RDW 14.3 % (11.6-15.6); WHITE BLOOD COUNT 12.8 K/mm3 (4.0-10.8)
[2018-03-25 18:17] LABS: ALK PHOS 53 U/L (32-92); ANION GAP 9 MMOL/L (8-16); BILIRUBIN,TOTAL 0.7 mg/dl (0.2-1.0); BLOOD UREA NITROGEN 16 mg/dl (7-18); CALCIUM 9.8 mg/dl (8.4-10.2); CHLORIDE 96 mmol/L (98-107); CO2 27 mmol/L (22-28); GLUCOSE,RANDOM 120 mg/dl (74-106); MAGNESIUM 1.9 mg/dL (1.8-2.4); PHOSPHOROUS 3.1 mg/dl (2.5-4.6); POTASSIUM 3.8 mmol/L (3.5-5.1); SGOT/AST 14 U/L (10-42); SGPT/ALT 14 U/L (10-40); SODIUM 132 mmol/L (136-145); TOT PROT 6.9 g/dl (6.4-8.3)
[2018-03-25 18:18] LABS: CREATININE < 0.6 mg/dl (0.6-1.3)
[2018-03-25 18:22] LABS: URINE APPEARANCE Clear; URINE BILIRUBIN Negative (NEGATIVE); URINE COLOR Yellow; URINE GLUCOSE (UA) Negative (NEGATIVE); URINE KETONE Negative (NEGATIVE); URINE LEUK ESTERASE Negative (NEGATIVE); URINE NITRITE Negative (NEGATIVE); URINE PROTEIN Negative (NEGATIVE); URINE UROBILINOGEN 0.2 (0.2-1.0)
[2018-03-25 18:23] LABS: ACTIVATED PTT 26.9 SECONDS (25.2-36.5)
[2018-03-25 18:27] LABS: INR 1.03 (0.82-1.09); PROTHROMBIN TIME (PATIENT) 11.5 SEC (10.2-13.0)
--- NOTE | 2018-03-25 18:34 | PDOC ---
Attending Attestation - Resident Resident Name: Elza Juárez - ED Attending Attestation I have performed the following: I have examined & evaluated the patient, The case was reviewed & discussed with the resident, I agree w/resident's findings & plan - HPI HPI: 03/25/18 18:32 52-year-old female with history of advanced COPD presents with cough with increased sputum and worsening dyspnea. No fever. Positive severe decrease in exercise capacity, cannot walk more than a few steps. - Physicial Exam PE: 03/25/18 18:32 Patient with tachycardia and tachypnea, no fever. She also has mild increased work of breathing at rest area initial oxygen saturation was 91-92%, improved to 97% with nasal oxygen. Dyspnea improved with oxygen, but persists. Given nebulizer treatments, IV steroids, and azithromycin given that the chest x-ray is clear. After treatment, on examination there is mild diffuse expiratory wheezes with prolonged expiration. Heart is regular rhythm without gallop or murmur. Extremities without edema. - Medical Decision Making 03/25/18 18:33 Patient with COPD exacerbation. Chest x-ray shows no pneumonia. She will be treated with bronchodilators by nebulizer, IV steroids, and antibiotics. Patient for admission to observation. Patient endorsed to Dr. Peres.
[2018-03-25 18:53] LABS: VENOUS PC02 41.6 mmHg (38-52); VENOUS PH 7.43 (7.32-7.42); VENOUS PO2 56.2 mmHg (28-48)
[2018-03-25 21:03] VITALS: BMI 24.5
[2018-03-25] MEDS ORDERED: ACETAMINOPHEN 325 MG TABLET (FP) PO PRN (22:23)
[2018-03-25] MEDS ORDERED: CYCLOBENZAPRINE HCL 10 MG TABLET (FP) PO PRN (22:23)
[2018-03-25] MEDS ORDERED: ALBUTEROL SO4 0.083% IH SOL 2.5 MG/3 ML VIAL.NEB. NEB PRN (22:23)
--- NOTE | 2018-03-25 22:25 | HP ---
CHIEF COMPLAINT: SOB PCP: [place]; Pulm: Ronny HISTORY OF PRESENT ILLNESS: This is a 62 year old female with a past medical history significant for COPD, HTN who presented to the ED with SOB/cough since her last hospitalization for COPD exacerbation in February. She reports that the cough and SOB have been significantly worsening over the past 4 days. She was so short of breath this morning that she was unable to dress herself. She reports that her oxygen sat dropped into low 80s in ED after walking to the bathroom. She was seen in urgent care yesterday and prescribed po prednisone. She reports that her nebulizers and inhalers are not helping her ER course was notable for: (1) CXR without obvious infiltrates or effusion (2) WBC 12.8 (3) given solumedrol 40mg IVPB, duoneb x 2, azithromycin 500 Recent Travel: pt denies PAST MEDICAL HISTORY: COPD, HTN, hypothyroid, seizure disorder, colon polyps, R BrCA PAST SURGICAL HISTORY: R Breast lumpectomy with LND lumbar fusion 2010 Social History: Smoking: quit a few weeks ago due to SOB, previous 3/4 ppd x many years Alcohol: occ wine with dinner Drugs: pt denies Family History: mother age 32, brain tumor, removal c/b CVA father age 62, stomach CA, emphysema, alcoholic liver disease brother and sister alive and well Allergies No Known Allergies Allergy (Verified 03/25/18 15:57) HOME MEDICATIONS: 3 Medication Instructions Recorded Divalproex Sodium [Depakote] 1,000 mg PO DAILY 09/22/17 Divalproex Sodium [Depakote] 1,500 mg PO HS 09/22/17 levETIRAcetam [Keppra -] 500 mg PO BID 09/22/17 Budesonide/Formeterol Fumarate 2 puff IH BID #1 inhaler 09/27/17 [SYMBICORT 160/4.5mcg -] Levothyroxine [Synthroid -] 125 mcg PO DAILY@0700 #30 tablet 09/27/17 Polyethylene Glycol 3350 [Miralax 17 gm PO DAILY #1 bottle 09/27/17 119 gm Btl -] Tiotropium [place] [Spiriva] 1 puff IH DAILY #1 inh 09/27/17 Anastrozole [Arimidex -] 1 mg PO DAILY 02/18/18 Cyclobenzaprine HCl [Flexeril 10 10 mg PO BID PRN 02/18/18 mg] Losartan Potassium 50 mg PO DAILY 02/18/18 Rabeprazole Sodium [Aciphex] 20 mg PO DAILY 02/18/18 Acetaminophen [Tylenol .Regular 650 mg PO Q6H PRN tablet 02/19/18 Strength -] Albuterol 0.083% Nebulizer Malgorzata 1 neb NEB Q4H PRN #120 vial 02/19/18 [Ventolin 0.083% Nebulizer Soln -] Prednisone [Deltasone] 40 mg PO DAILY 03/25/18 REVIEW OF SYSTEMS CONSTITUTIONAL: Absent: fever, chills, diaphoresis, generalized weakness, malaise, loss of appetite, weight change HEENT: Absent: rhinorrhea, nasal congestion, throat pain, throat swelling, difficulty swallowing, mouth swelling, ear pain, eye pain, visual changes CARDIOVASCULAR: Absent: chest pain, syncope, palpitations, irregular heart rate, lightheadedness , peripheral edema RESPIRATORY: Present: cough, shortness of breath, dyspnea with exertion Absent: orthopnea, wheezing, stridor, hemoptysis GASTROINTESTINAL: Absent: abdominal pain, abdominal distension, nausea, vomiting, diarrhea, constipation, melena, hematochezia GENITOURINARY: Absent: dysuria, frequency, urgency, hesitancy, hematuria, flank pain, genital pain MUSCULOSKELETAL: Absent: myalgia, arthralgia, joint swelling, back pain, neck pain SKIN: Absent: rash, itching, pallor HEMATOLOGIC/IMMUNOLOGIC: Absent: easy bleeding, easy bruising, lymphadenopathy, frequent infections ENDOCRINE: Absent: unexplained weight gain, unexplained weight loss, heat intolerance, cold intolerance NEUROLOGIC: Absent: headache, focal weakness or paresthesias, dizziness, unsteady gait, seizure, mental status changes, bladder or bowel incontinence PSYCHIATRIC: Absent: anxiety, depression, suicidal or homicidal ideation, hallucinations. PHYSICAL EXAMINATION Vital Signs - 24 hr 3 03/25/18 03/25/18 15:40 20:40 Temperature 98.1 F Pulse Rate 93 H Respiratory 24 Rate Blood Pressure 153/94 O2 Sat by Pulse 97 96 Oximetry (%) GENERAL: Awake, alert, and fully oriented, in no acute distress. HEAD: Normal with no signs of trauma. EYES: Pupils equal, round and reactive to light, extraocular movements intact, sclera anicteric, conjunctiva clear. No lid lag. EARS, NOSE, THROAT: Ears normal, nares patent, oropharynx clear without exudates. Moist mucous membranes. NECK: Normal range of motion, supple without lymphadenopathy, JVD, or masses. LUNGS: expiratory wheezing all lung mederos. No accessory muscle use. HEART: Regular rate and rhythm, normal S1 and S2 without murmur, rub or gallop. ABDOMEN: Soft, nontender, not distended, normoactive bowel sounds, no guarding, no rebound, no masses. No hepatomegaly or splenomegaly. MUSCULOSKELETAL: Normal range of motion at all joints. No bony deformities or tenderness. No CVA tenderness. UPPER EXTREMITIES: 2+ pulses, warm, well-perfused. No cyanosis. No clubbing. No peripheral edema. LOWER EXTREMITIES: 2+ pulses, warm, well-perfused. No calf tenderness. No peripheral edema. NEUROLOGICAL: Cranial nerves II-XII intact. Normal speech. Normal gait. PSYCHIATRIC: Cooperative. Good eye contact. Appropriate mood and affect. SKIN: Warm, dry, normal turgor, no rashes or lesions noted, normal capillary refill. Laboratory Results - last 24 hr 3 03/25/18 03/25/18 03/25/18 17:40 17:48 17:48 WBC 12.8 H RBC 4.83 Hgb 15.7 H Hct 46.8 H MCV 96.9 H MCH 32.4 MCHC 33.4 RDW 14.3 Plt Count 347 MPV 7.2 L Absolute Neuts (auto) 10.4 Neutrophils % 80.8 Lymphocytes % 12.8 Monocytes % 6.2 Eosinophils % 0.0 Basophils % 0.2 PT with INR 11.5 INR 1.03 PTT (Actin FS) 26.9 VBG pH 7.43 H POC VBG pCO2 41.6 POC VBG pO2 56.2 H D Mixed VBG HCO3 27.1 H Sodium 132 L Potassium 3.8 Chloride 96 L Carbon Dioxide 27 Anion Gap 9 BUN 16 Creatinine < 0.6 L Creat Clearance w eGFR > 60 Random Glucose 120 H D Calcium 9.8 Phosphorus 3.1 Magnesium 1.9 Total Bilirubin 0.7 AST 14 ALT 14 D Alkaline Phosphatase 53 Troponin I < 0.03 Total Protein 6.9 Albumin 4.0 Urine Color Urine Appearance Urine pH Ur Specific [place] Urine Protein Urine Glucose (UA) Urine Ketones Urine Blood Urine Nitrite Urine Bilirubin Urine Urobilinogen Ur Leukocyte Esterase 3 Urine Color Yellow 03/25/18 18:14 Urine Appearance Clear 03/25/18 18:14 Urine pH 7.0 (4.5-8) 03/25/18 18:14 Ur Specific [place] 1.010 (1.005-1.025) 03/25/18 18:14 Urine Protein Negative (NEGATIVE) 03/25/18 18:14 Urine Glucose (UA) Negative (NEGATIVE) 03/25/18 18:14 Urine Ketones Negative (NEGATIVE) 03/25/18 18:14 Urine Blood Negative (NEGATIVE) 03/25/18 18:14 Urine Nitrite Negative (NEGATIVE) 03/25/18 18:14 Urine Bilirubin Negative (NEGATIVE) 03/25/18 18:14 Ur Leukocyte Esterase Negative (NEGATIVE) 03/25/18 18:14 ECG normal sinus rhythm with sinus arrhythmia vnet rate 87, QTC 435 possible LA enlargement Radiology reports CXR official read pending, no obvious infiltrates or effusion ASSESSMENT/PLAN: 62yF with PMH COPD, HTN, hypothyroid, seizure disorder, colon polyps, R BrCA presented to the ED with cough, SOB worse over past 4 days. COPD exacerbation - solumedrol 60mg IVPB q6h - cont azithromycin 250mg po - duoneb qid, albuterol Q4H prn - cont home symbicort - hold home spiriva while on duonebs - robitussin AC PRN HS - guaifenesin 600mg BID HTN - cont home cozaar seizure d/o - cont home keppra and depakote hypothyroid - cont home synthroid, dose adjusted last visit, repeat TSH chronic low back pain - cont home flexeril PRN DVT PPX - lovenox SC FEN - tolerating po fluids - BMP in am - low sodium diet as tolerated Dispo: Pt currently requires further observation for management of her emergent condition. Visit type - Emergency Visit Emergency Visit: Yes ED Registration Date: 03/25/18 Care time: The patient presented to the Emergency Department on the above date and was hospitalized for further evaluation of their emergent condition. - New Patient This patient is new to me today: Yes Date on this admission: 03/25/18 - Critical Care Critical Care patient: No Hospitalist Screening - Colonoscopy Questionnaire Colonoscopy Questionnaire: Colonoscopy Questionnaire - Patient: 50 - 75 years old and never had a screening colonoscopy: No History of colon or rectal polyps, or CA: Yes History of IBD, Crohn's disease or UC: No History of abdominal radiation therapy as a child: No - Relative: 1 with colon or rectal CA, or polyps at age 60 or younger: No Colon or rectal CA diagnosed at age 45 or younger: No Multiple relatives with colon or rectal CA: No - Outcome: Screening Result: Positive Screen
[2018-03-25] MEDS: levETIRAcetam 500 MG TABLET (FP) PO SCH (22:49)
[2018-03-25] MEDS: DIVALPROEX SODIUM 500 MG TABLET E.C. PO SCH (22:49)
[2018-03-25] MEDS ORDERED: methylPREDNISolone NA SUCC 125 MG/2 ML VIAL ONE (23:52)
[2018-03-25] MEDS: guaiFENesin/CODEINE 10 ML UNIT-DOSE CUPS PO PRN (23:55)
[2018-03-26] MEDS: methylPREDNISolone NA SUCC 40 MG/1 ML VIAL IVPUSH SCH ×3 (06:22→17:35)
[2018-03-26] MEDS: LEVOTHYROXINE NA 125 MCG TABLET (FP) PO SCH (06:22)
[2018-03-26] MEDS: ALBUTEROL SO4 2.5/IPRATROPIUM 0.5 INH SOL 3 ML VIAL.NEB. NEB SCH ×4 (07:52→19:52)
--- NOTE | 2018-03-26 07:59 | PN ---
Physical Exam: SUBJECTIVE: Patient seen and examined, Reports dyspnea on exertion and ongoing cough denies any tactile fevers OBJECTIVE: patient is a 62 year old female with a past medical history significant for COPD, breast CA (remission) and HTN. Patient was aAdmitted from emergency department for COPD exacerbation. Vital Signs Period Temp Pulse Resp BP Sys/Kim Pulse Ox Last 24 Hr 98.1 F-98.5 F 61-106 19-24 125-153/58-94 93-97 GENERAL: The patient is awake, alert, and fully oriented, in no acute distress. HEAD: Normal with no signs of trauma. EYES: PERRL, extraocular movements intact, sclera anicteric, conjunctiva clear. No ptosis. ENT: Ears normal, nares patent, oropharynx clear without exudates, moist mucous membranes. NECK: Trachea midline, full range of motion, supple. LUNGS: Breath sounds equal,Course rhonchi bilaterally to E Pyxis with diffuse wheezing bilaterally, no crackles, no accessory muscle use. HEART: Regular rate and rhythm, S1, S2 without murmur, rub or gallop. ABDOMEN: Soft, nontender, nondistended, normoactive bowel sounds, no guarding, no rebound, no hepatosplenomegaly, no masses. EXTREMITIES: 2+ pulses, warm, well-perfused, no edema. NEUROLOGICAL: Cranial nerves II through XII grossly intact. Normal speech, gait not observed. PSYCH: Normal mood, normal affect. SKIN: Warm, dry, normal turgor, no rashes or lesions noted Laboratory Results - last 24 hr 03/25/18 03/25/18 03/25/18 17:40 17:48 17:48 WBC 12.8 H RBC 4.83 Hgb 15.7 H Hct 46.8 H MCV 96.9 H MCH 32.4 MCHC 33.4 RDW 14.3 Plt Count 347 MPV 7.2 L Absolute Neuts (auto) 10.4 Neutrophils % 80.8 Lymphocytes % 12.8 Monocytes % 6.2 Eosinophils % 0.0 Basophils % 0.2 PT with INR INR PTT (Actin FS) VBG pH POC VBG pCO2 POC VBG pO2 Mixed VBG HCO3 Sodium 132 L Potassium 3.8 Chloride 96 L Carbon Dioxide 27 Anion Gap 9 BUN 16 Creatinine < 0.6 L Creat Clearance w eGFR > 60 Random Glucose 120 H D Calcium 9.8 Phosphorus 3.1 Magnesium 1.9 Total Bilirubin 0.7 AST 14 ALT 14 D Alkaline Phosphatase 53 Troponin I < 0.03 Total Protein 6.9 Albumin 4.0 Urine Color Urine Appearance Urine pH Ur Specific [place] Urine Protein Urine Glucose (UA) Urine Ketones Urine Blood Urine Nitrite Urine Bilirubin Urine Urobilinogen Ur Leukocyte Esterase 03/25/18 03/25/18 03/25/18 17:48 17:48 17:48 WBC RBC Hgb Hct MCV MCH MCHC RDW Plt Count MPV Absolute Neuts (auto) Neutrophils % Lymphocytes % Monocytes % Eosinophils % Basophils % PT with INR 11.5 INR 1.03 PTT (Actin FS) 26.9 VBG pH 7.43 H POC VBG pCO2 41.6 POC VBG pO2 56.2 H D Mixed VBG HCO3 27.1 H Sodium Potassium Chloride Carbon Dioxide Anion Gap BUN Creatinine Creat Clearance w eGFR Random Glucose Calcium Phosphorus Magnesium Total Bilirubin AST ALT Alkaline Phosphatase Troponin I Cancelled Total Protein Albumin Urine Color Urine Appearance Urine pH Ur Specific [place] Urine Protein Urine Glucose (UA) Urine Ketones Urine Blood Urine Nitrite Urine Bilirubin Urine Urobilinogen Ur Leukocyte Esterase 03/25/18 18:14 WBC RBC Hgb Hct MCV MCH MCHC RDW Plt Count MPV Absolute Neuts (auto) Neutrophils % Lymphocytes % Monocytes % Eosinophils % Basophils % PT with INR INR PTT (Actin FS) VBG pH POC VBG pCO2 POC VBG pO2 Mixed VBG HCO3 Sodium Potassium Chloride Carbon Dioxide Anion Gap BUN Creatinine Creat Clearance w eGFR Random Glucose Calcium Phosphorus Magnesium Total Bilirubin AST ALT Alkaline Phosphatase Troponin I Total Protein Albumin Urine Color Yellow Urine Appearance Clear Urine pH 7.0 Ur Specific [place] 1.010 Urine Protein Negative Urine Glucose (UA) Negative Urine Ketones Negative Urine Blood Negative Urine Nitrite Negative Urine Bilirubin Negative Urine Urobilinogen 0.2 Ur Leukocyte Esterase Negative Active Medications Generic Name Dose Route Start Last Admin Trade Name Freq PRN Reason Stop Dose Admin Acetaminophen 650 mg 03/25/18 22:23 Tylenol - PO Q6H PRN PAIN 1-5 OR FEVER Albuterol Sulfate 1 amp 03/25/18 22:23 Ventolin 0.083% Nebulizer Soln - NEB Q4H PRN SHORT OF BREATH/WHEEZING Albuterol/Ipratropium 1 amp 03/26/18 08:00 03/26/18 07:52 Duoneb - NEB 1 amp RQID JORI Administration Anastrozole 1 mg 03/26/18 10:00 Arimidex - PO DAILY JORI Azithromycin 250 mg 03/26/18 10:00 Zithromax - PO 03/30/18 09:59 DAILY [facility] Budesonide/Formoterol Fumarate 2 puff 03/26/18 10:00 Symbicort 160/4.5mcg - IH BID JORI Cyclobenzaprine HCl 10 mg 03/25/18 22:23 Flexeril - PO BID PRN back pain Divalproex Sodium 1,000 mg 03/26/18 10:00 Depakote - PO DAILY JORI Divalproex Sodium 1,500 mg 03/25/18 22:30 03/25/18 22:49 Depakote - PO 1,500 mg HS JORI Administration Enoxaparin Sodium 40 mg 03/26/18 10:00 Lovenox - SQ DAILY [facility] Guaifenesin 600 mg 03/26/18 10:00 Mucinex - PO BID [facility] Guaifenesin/Codeine Phosphate 10 ml 03/25/18 23:45 03/25/18 23:55 Robitussin Ac - PO 10 ml HS PRN Administration COUGH Levetiracetam 500 mg 03/25/18 22:30 03/25/18 22:49 Keppra - PO 500 mg BID JORI Administration Levothyroxine Sodium 125 mcg 03/26/18 07:00 03/26/18 06:22 Synthroid - PO 125 mcg DAILY@0700 JORI Administration Losartan Potassium 50 mg 03/26/18 10:00 Cozaar - PO DAILY [facility] Methylprednisolone Sodium Succinate 40 mg 03/26/18 06:00 03/26/18 06:22 Solu-Medrol - IVPUSH 40 mg Q6H JORI Administration Pantoprazole Sodium 40 mg 03/26/18 10:00 Protonix - PO DAILY [facility] Polyethylene Glycol 17 gm 03/26/18 10:00 Miralax (For Daily Use) - PO DAILY [facility] Imaging Chest x-ray:No infiltrates COPD ASSESSMENT/PLAN: Pulmonary COPD exacerbation - Continue solumedrol 60mg IVPB q6h, azithromycin 250mg po, duoneb qid, albuterol Q4H prn, cont home symbicort - hold home spiriva while on duonebs - robitussin AC PRN HS - guaifenesin 600mg BID - appreciate pulmonary input HTN - cont home cozaar seizure d/o - cont home keppra and depakote hypothyroid - cont home synthroid, dose adjusted last visit, repeat TSH chronic low back pain - cont home flexeril PRN DVT PPX - lovenox SC FEN - tolerating po fluids - BMP in am - low sodium diet as tolerated Dispo: Pt currently requires further observation for management of her emergent condition. Visit type - Emergency Visit Emergency Visit: Yes ED Registration Date: 03/25/18 Care time: The patient presented to the Emergency Department on the above date and was hospitalized for further evaluation of their emergent condition. - New Patient This patient is new to me today: Yes Date on this admission: 03/26/18 - Critical Care Critical Care patient: No - Discharge Referral Referred to [facility] Med P.C[facility] No
[2018-03-26 08:03] LABS: MEAN PLT VOLUME 7.2 fl (7.5-11.1)
[2018-03-26 08:21] LABS: ANION GAP 7 MMOL/L (8-16); BLOOD UREA NITROGEN 17 mg/dl (7-18); CALCIUM 9.3 mg/dl (8.4-10.2); CHLORIDE 99 mmol/L (98-107); CO2 28 mmol/L (22-28); CREATININE 0.6 mg/dl (0.6-1.3); GLUCOSE,RANDOM 111 mg/dl (74-106); POTASSIUM 4.8 mmol/L (3.5-5.1); SODIUM 134 mmol/L (136-145)
[2018-03-26 08:28] LABS: BASO % 0.3 % (0-2.0); HEMATOCRIT 45.2 % (32.4-45.2); HEMOGLOBIN 14.6 GM/dl (10.7-15.3); LYMPH % 19.6 % (8-40); MCH 31.8 pg (25.7-33.7); MCHC 32.3 g/dl (32.0-36.0); MEAN CELL VOLUME 98.5 fl (80-96); MONO % 5.4 % (3.8-10.2); NEUT % 74.7 % (42.8-82.8); PLATELET COUNT 309 K/MM3 (134-434); RBC 4.59 M/mm3 (3.60-5.2); WHITE BLOOD COUNT 11.4 K/mm3 (4.0-10.8)
[2018-03-26] MEDS: ANASTROZOLE 1 MG TABLET PO SCH (09:30)
[2018-03-26] MEDS: DIVALPROEX SODIUM 500 MG TABLET E.C. PO SCH ×2 (09:30→21:25)
[2018-03-26] MEDS: PANTOPRAZOLE 40 MG TABLET (FP) PO SCH (09:30)
[2018-03-26] MEDS: levETIRAcetam 500 MG TABLET (FP) PO SCH ×2 (09:31→21:26)
[2018-03-26] MEDS: guaiFENesin 600 MG TABLET.ER (FP) PO SCH ×2 (09:31→21:26)
[2018-03-26] MEDS: LOSARTAN POTASSIUM 50 MG TABLET (FP) PO SCH (09:31)
[2018-03-26] MEDS: POLYETHYLENE GLYCOL 3350 119 GM BTL PO SCH ×2 (09:31→09:45)
[2018-03-26] MEDS: ENOXAPARIN NA (PORCINE) 40 MG/0.4 ML DISP.SYRIN SQ SCH ×2 (09:33→09:44)
[2018-03-26] MEDS: BUDESONIDE/FORMETEROL FUMARATE 160/4.5 mcg INHALER IH SCH ×2 (09:40→21:26)
[2018-03-26] MEDS ORDERED: PT OWN MED DRAWER 7, Y5N ONE ×2 (09:51→21:14)
[2018-03-26] MEDS ORDERED: AZITHROMYCIN 250 MG TABLET PO SCH ×2 (10:00→15:23)
--- NOTE | 2018-03-26 11:20 | EKG ---
Test Reason : Blood Pressure : / mmHG Vent. Rate : 087 BPM Atrial Rate : 087 BPM P-R Int : 120 ms QRS Dur : 086 ms QT Int : 362 ms P-R-T Axes : 086 080 026 degrees QTc Int : 435 ms NORMAL SINUS RHYTHM WITH SINUS ARRHYTHMIA POSSIBLE LEFT ATRIAL ENLARGEMENT BORDERLINE ECG WHEN COMPARED WITH ECG OF 18-FEB-2018 17:53, VENT. RATE HAS INCREASED Confirmed by EULA CARDENAS, YVONNE ([id number]) on 03/26/2018 11:20:15 AM Referred By: Elise Perse Confirmed By:YVONNE FORDE MD
--- NOTE | 2018-03-26 15:20 | CON.PULM ---
Consult Consult Specialty:: PULMONARY Referred by:: ALEXANDER Reason for Consultation:: SOB/COUGH/WHEEZE - History of Present Illness Chief Complaint: ANNE/COUGH/WHEEZE History of Present Illness: Pt is a 62yo F with PMH of COPD, htn,hypothyroid presenting to ED for worsening SOB for 4 days. Pt went to urgent care yesterday and was given prednisone. Pt gets SOB when walking short distances and when talking. Pt says she uses her nebulizer, Spiriva and Symbicort but feels as if she is not breathing it in. She admits to headache, back pain and diarrhea (she thinks it was from the canned soup she drank yesterday). Denies n/v, abdominal pain, fever, chills, neck pain, urinary symptoms, neurological deficits. She was saturating at 93% RA , does not know her baseline. Does not use oxygen at home. She sees Dr. Richardson. She was recently hospitalized 1 month ago for COPD exacerbation and PNA. 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 No: O2 Dependent, Pulmonary Embolus Gastrointestinal: Yes: GERD Psych: Yes: Depression Endocrine: Yes: Hypothyroidism - Past Surgical History Past Surgical History: Yes: Laminectomy - Alcohol/Substance Use Hx Alcohol Use: Yes (OCCASIONAL) History of Substance Use: reports: None - Smoking History Smoking history: Former smoker Have you smoked in the past 12 months: Yes Aproximately how many cigarettes per day: 10 If you are a former smoker, when did you quit?: 01/2016 - Social History Usual Living Arrangement: Alone ADL: Independent Place of : [facility] History of Recent Travel: No Home Medications - Allergies Allergies/Adverse Reactions: Allergies Allergy/AdvReac Type Severity Reaction Status Date / Time No Known Allergies Allergy Verified 03/25/18 15:57 - Home Medications Home Medications: Ambulatory Orders Divalproex Sodium [Depakote] 1,000 mg PO DAILY 09/22/17 Divalproex Sodium [Depakote] 1,500 mg PO HS 09/22/17 levETIRAcetam [Keppra -] 500 mg PO BID 09/22/17 Budesonide/Formeterol Fumarate [SYMBICORT 160/4.5mcg -] 2 puff IH BID #1 inhaler 09/27/17 Levothyroxine [Synthroid -] 125 mcg PO DAILY@0700 #30 tablet 09/27/17 Polyethylene Glycol 3350 [Miralax 119 gm Btl -] 17 gm PO DAILY #1 bottle Tiotropium [place] [Spiriva] 1 puff IH DAILY #1 inh 09/27/17 Anastrozole [Arimidex -] 1 mg PO DAILY 02/18/18 Cyclobenzaprine HCl [Flexeril 10 mg] 10 mg PO BID PRN 02/18/18 Losartan Potassium 50 mg PO DAILY 02/18/18 Rabeprazole Sodium [Aciphex] 20 mg PO DAILY 02/18/18 Acetaminophen [Tylenol .Regular Strength -] 650 mg PO Q6H PRN tablet 02/19/18 Albuterol 0.083% Nebulizer [place] [Ventolin 0.083% Nebulizer Soln -] 1 neb NEB Q4H PRN #120 vial 02/19/18 Prednisone [Deltasone] 40 mg PO DAILY 03/25/18 Family Disease History - Family Disease History Family Disease History: CA: Father (gastric CA), Mother (Brain CA) Review of Systems - Review of Systems Constitutional: denies: Fever Eyes: denies: Blurred Vision HENT: denies: Difficult Swallowing Neck: denies: Decreased ROM Cardiovascular: reports: Shortness of Breath. denies: Chest Pain Respiratory: reports: Cough, Exercise Intolerance, SOB, SOB on Exertion, Wheezing. denies: Hemoptysis, Orthopnea Gastrointestinal: denies: Abdominal Pain Genitourinary: denies: Burning Physical Exam Vital Sings: Vital Signs Temperature 97.9 F 03/26/18 14:41 Pulse Rate 65 03/26/18 14:41 Respiratory Rate 19 03/26/18 14:41 Blood Pressure 143/61 03/26/18 14:41 O2 Sat by Pulse Oximetry (%) 96 03/26/18 14:41 Constitutional: Yes: Calm Eyes: Yes: EOM Intact HENT: Yes: Normocephalic Neck: Yes: Trachea Midline Cardiovascular: Yes: Regular Rate and Rhythm Respiratory: Yes: Diminished, Wheezes Gastrointestinal: Yes: Normal Bowel Sounds Extremities: Yes: WNL Edema: No Neurological: Yes: Alert Psychiatric: Yes: Alert Labs: CBC, BMP 03/26/18 07:30 03/26/18 07:30 REST REVIEWED Imaging - Results Chest X-ray: Report Reviewed, Image Reviewed Cat Scan: Report Reviewed, Image Reviewed EKG: Report Reviewed, Image Reviewed Problem List - Problems (1) COPD exacerbation Code(s): J44.1 - CHRONIC OBSTRUCTIVE PULMONARY DISEASE W (ACUTE) EXACERBATION (2) Breast cancer, right breast Code(s): C50.911 - MALIGNANT NEOPLASM OF UNSP SITE OF RIGHT FEMALE BREAST (3) GERD (gastroesophageal reflux disease) Code(s): K21.9 - GASTRO-ESOPHAGEAL REFLUX DISEASE WITHOUT ESOPHAGITIS Qualifiers: Esophagitis presence: without esophagitis Qualified Code(s): K21.9 - Gastro -esophageal reflux disease without esophagitis (4) Hypertension Code(s): I10 - ESSENTIAL (PRIMARY) HYPERTENSION Qualifiers: (5) Hypothyroidism Code(s): E03.9 - HYPOTHYROIDISM, UNSPECIFIED Qualifiers: (6) Lumbar disc disease Code(s): M51.9 - UNSP THORACIC, THORACOLUM AND LUMBOSACR INTVRT DISC DISORDER (7) Seizure disorder Code(s): G40.909 - EPILEPSY, UNSP, NOT INTRACTABLE, WITHOUT STATUS EPILEPTICUS Assessment/Plan O2/BRONCHODILATORS/STEROIDS/ANTIBIOTICS/CHEST PT/OOB TO CHAIR URINE ANTIGENS/DVT/GI PROPHYLAXSIS CHECK LEVETIRACETAM LEVEL WILL FOLLOW Ki ZHANG MD
[2018-03-26] MEDS ORDERED: ALBUTEROL SO4 0.083% IH SOL 2.5 MG/3 ML VIAL.NEB. NEB PRN (15:22)
[2018-03-26] MEDS: guaiFENesin/CODEINE 10 ML UNIT-DOSE CUPS PO PRN (21:25)
[2018-03-27] MEDS: methylPREDNISolone NA SUCC 40 MG/1 ML VIAL IVPUSH SCH ×4 (06:06→17:48)
[2018-03-27] MEDS: LEVOTHYROXINE NA 125 MCG TABLET (FP) PO SCH (06:07)
[2018-03-27 08:23] LABS: BASO % 0.3 % (0-2.0); EOS % 0.1 % (0-4.5); HEMATOCRIT 50.1 % (32.4-45.2); HEMOGLOBIN 16.6 GM/dl (10.7-15.3); LYMPH % 15.4 % (8-40); MCH 32.8 pg (25.7-33.7); MCHC 33.2 g/dl (32.0-36.0); MEAN CELL VOLUME 98.8 fl (80-96); MONO % 3.4 % (3.8-10.2); NEUT % 80.8 % (42.8-82.8); PLATELET COUNT 369 K/MM3 (134-434); RBC 5.07 M/mm3 (3.60-5.2); RDW 13.9 % (11.6-15.6); WHITE BLOOD COUNT 12.3 K/mm3 (4.0-10.8)
[2018-03-27 08:36] LABS: ANION GAP 10 MMOL/L (8-16); BLOOD UREA NITROGEN 19 mg/dl (7-18); CALCIUM 9.9 mg/dl (8.4-10.2); CHLORIDE 97 mmol/L (98-107); CO2 28 mmol/L (22-28); CREATININE 0.6 mg/dl (0.6-1.3); GLUCOSE,RANDOM 129 mg/dl (74-106); PHOSPHOROUS 3.8 mg/dl (2.5-4.6); POTASSIUM 4.6 mmol/L (3.5-5.1); SODIUM 135 mmol/L (136-145)
[2018-03-27] MEDS: ALBUTEROL SO4 2.5/IPRATROPIUM 0.5 INH SOL 3 ML VIAL.NEB. NEB SCH ×4 (09:00→20:00)
[2018-03-27] MEDS ORDERED: PT OWN MED DRAWER 7, Y5N ONE ×3 (10:07→21:37)
[2018-03-27] MEDS: AZITHROMYCIN 250 MG TABLET PO SCH (10:15)
[2018-03-27] MEDS: BUDESONIDE/FORMETEROL FUMARATE 160/4.5 mcg INHALER IH SCH ×2 (10:15→21:51)
[2018-03-27] MEDS: ENOXAPARIN NA (PORCINE) 40 MG/0.4 ML DISP.SYRIN SQ SCH ×2 (10:16→10:23)
[2018-03-27] MEDS: POLYETHYLENE GLYCOL 3350 119 GM BTL PO SCH (10:16)
[2018-03-27] MEDS: guaiFENesin 600 MG TABLET.ER (FP) PO SCH ×2 (10:16→21:51)
[2018-03-27] MEDS: ANASTROZOLE 1 MG TABLET PO SCH (10:17)
[2018-03-27] MEDS: levETIRAcetam 500 MG TABLET (FP) PO SCH ×2 (10:17→21:51)
[2018-03-27] MEDS: DIVALPROEX SODIUM 500 MG TABLET E.C. PO SCH ×2 (10:17→21:50)
[2018-03-27] MEDS: PANTOPRAZOLE 40 MG TABLET (FP) PO SCH (10:17)
[2018-03-27] MEDS: LOSARTAN POTASSIUM 50 MG TABLET (FP) PO SCH (10:17)
--- NOTE | 2018-03-27 10:17 | PN ---
Progress Note, Physician History of Present Illness: PULMONARY ALERT,FEELING BETTER,LESS CONGESTED - Current Medication List Current Medications: Active Medications Acetaminophen (Tylenol -) 650 mg PO Q6H PRN PRN Reason: PAIN 1-5 OR FEVER Last Admin: 03/26/18 19:52 Dose: 650 mg Albuterol Sulfate (Ventolin 0.083% Nebulizer Soln -) 1 amp NEB Q1H PRN PRN Reason: SHORT OF BREATH/WHEEZING Last Admin: 03/27/18 06:06 Dose: 1 amp Albuterol/Ipratropium (Duoneb -) 1 amp NEB RQID [facility] Last Admin: 03/26/18 19:52 Dose: 1 amp Anastrozole (Arimidex -) 1 mg PO DAILY [facility] Last Admin: 03/26/18 09:30 Dose: 1 mg Azithromycin (Zithromax -) 500 mg PO DAILY [facility] Stop: 03/29/18 10:01 Budesonide/Formoterol Fumarate (Symbicort 160/4.5mcg -) 2 puff IH BID [facility] Last Admin: 03/26/18 21:26 Dose: 2 puff Cyclobenzaprine HCl (Flexeril -) 10 mg PO BID PRN PRN Reason: back pain Divalproex Sodium (Depakote -) 1,000 mg PO DAILY [facility] Last Admin: 03/26/18 09:30 Dose: 1,000 mg Divalproex Sodium (Depakote -) 1,500 mg PO HS [facility] Last Admin: 03/26/18 21:25 Dose: 1,500 mg Enoxaparin Sodium (Lovenox -) 40 mg SQ DAILY [facility] Last Admin: 03/26/18 09:44 Dose: Not Given Guaifenesin (Mucinex -) 600 mg PO BID [facility] Last Admin: 03/26/18 21:26 Dose: 600 mg Guaifenesin/Codeine Phosphate (Robitussin Ac -) 10 ml PO HS PRN PRN Reason: COUGH Last Admin: 03/26/18 21:25 Dose: 10 ml Levetiracetam (Keppra -) 500 mg PO BID [facility] Last Admin: 03/26/18 21:26 Dose: 500 mg Levothyroxine Sodium (Synthroid -) 125 mcg PO DAILY@0700 [facility] Last Admin: 03/27/18 06:07 Dose: 125 mcg Losartan Potassium (Cozaar -) 50 mg PO DAILY [facility] Last Admin: 03/26/18 09:31 Dose: 50 mg Methylprednisolone Sodium Succinate (Solu-Medrol -) 40 mg IVPUSH Q6H [facility] Last Admin: 03/27/18 06:06 Dose: 40 mg Pantoprazole Sodium (Protonix -) 40 mg PO DAILY [facility] Last Admin: 03/26/18 09:30 Dose: 40 mg Polyethylene Glycol (Miralax (For Daily Use) -) 17 gm PO DAILY [facility] Last Admin: 03/26/18 09:45 Dose: Not Given - Objective Vital Signs: Vital Signs Temperature 98.5 F 03/27/18 06:00 Pulse Rate 81 03/27/18 10:00 Respiratory Rate 20 03/27/18 10:00 Blood Pressure 149/73 03/27/18 10:00 O2 Sat by Pulse Oximetry (%) 93 L 03/27/18 09:55 Constitutional: Yes: Well Nourished, Calm Eyes: Yes: WNL HENT: Yes: WNL Neck: Yes: WNL Cardiovascular: Yes: Regular Rate and Rhythm, S1, S2 Respiratory: Yes: Rhonchi (BILATERAL WHEEZES AND RHONCHI) Gastrointestinal: Yes: Normal Bowel Sounds, Soft Extremities: Yes: WNL Edema: No Labs: CBC, BMP 03/27/18 07:30 03/27/18 07:30 INR, PTT INR 1.03 (0.82-1.09) 03/25/18 17:48 Assessment/Plan Problem List - Problems (1) COPD exacerbation Code(s): J44.1 - CHRONIC OBSTRUCTIVE PULMONARY DISEASE W (ACUTE) EXACERBATION (2) Breast cancer, right breast Code(s): C50.911 - MALIGNANT NEOPLASM OF UNSP SITE OF RIGHT FEMALE BREAST (3) GERD (gastroesophageal reflux disease) Code(s): K21.9 - GASTRO-ESOPHAGEAL REFLUX DISEASE WITHOUT ESOPHAGITIS Qualifiers: Esophagitis presence: without esophagitis Qualified Code(s): K21.9 - Gastro -esophageal reflux disease without esophagitis (4) Hypertension Code(s): I10 - ESSENTIAL (PRIMARY) HYPERTENSION Qualifiers: (5) Hypothyroidism Code(s): E03.9 - HYPOTHYROIDISM, UNSPECIFIED Qualifiers: (6) Lumbar disc disease Code(s): M51.9 - UNSP THORACIC, THORACOLUM AND LUMBOSACR INTVRT DISC DISORDER (7) Seizure disorder Code(s): G40.909 - EPILEPSY, UNSP, NOT INTRACTABLE, WITHOUT STATUS EPILEPTICUS Assessment/Plan O2 BRONCHODILATORS STEROIDS SAME DOSE ANTIBIOTICS/ CHEST PT OOB TO CHAIR DVT PROPHYLAXIS DR BURNS
--- NOTE | 2018-03-27 12:08 | PN ---
Physical Exam: SUBJECTIVE: Patient seen and examined, Patient is ambulatory throughout nursing station OBJECTIVE:patient is a 62 year old female with a past medical history significant for COPD, breast CA (remission) and HTN. Patient was aAdmitted from emergency department for COPD exacerbation. Vital Signs Period Temp Pulse Resp BP Sys/Kim Pulse Ox Last 24 Hr 97.9 F-98.5 F 56-81 19-20 124-149/58-73 93-98 GENERAL: The patient is awake, alert, and fully oriented, in no acute distress. HEAD: Normal with no signs of trauma. EYES: PERRL, extraocular movements intact, sclera anicteric, conjunctiva clear. No ptosis. ENT: Ears normal, nares patent, oropharynx clear without exudates, moist mucous membranes. NECK: Trachea midline, full range of motion, supple. LUNGS: Breath sounds equal, Course rhonchi to apexes With mild inspiratory wheeze, no crackles, no accessory muscle use. HEART: Regular rate and rhythm, S1, S2 without murmur, rub or gallop. ABDOMEN: Soft, nontender, nondistended, normoactive bowel sounds, no guarding, no rebound, no hepatosplenomegaly, no masses. EXTREMITIES: 2+ pulses, warm, well-perfused, no edema. NEUROLOGICAL: Cranial nerves II through XII grossly intact. Normal speech, steady gait noted PSYCH: Normal mood, normal affect. SKIN: Warm, dry, normal turgor, no rashes or lesions noted Laboratory Results - last 24 hr 03/27/18 03/27/18 07:30 07:30 WBC 12.3 H RBC 5.07 Hgb 16.6 H Hct 50.1 H MCV 98.8 H MCH 32.8 MCHC 33.2 RDW 13.9 Plt Count 369 MPV 7.0 L Absolute Neuts (auto) 10.0 Neutrophils % 80.8 Lymphocytes % 15.4 Monocytes % 3.4 L Eosinophils % 0.1 Basophils % 0.3 Sodium 135 L Potassium 4.6 Chloride 97 L Carbon Dioxide 28 Anion Gap 10 BUN 19 H Creatinine 0.6 Creat Clearance w eGFR > 60 Random Glucose 129 H Calcium 9.9 Phosphorus 3.8 D Magnesium 2.0 Active Medications Generic Name Dose Route Start Last Admin Trade Name Freq PRN Reason Stop Dose Admin Acetaminophen 650 mg 03/25/18 22:23 03/26/18 19:52 Tylenol - PO 650 mg Q6H PRN Administration PAIN 1-5 OR FEVER Albuterol Sulfate 1 amp 03/26/18 15:22 03/27/18 06:06 Ventolin 0.083% Nebulizer Soln - NEB 1 amp Q1H PRN Administration SHORT OF BREATH/WHEEZING Albuterol/Ipratropium 1 amp 03/26/18 08:00 03/27/18 12:05 Duoneb - NEB 1 amp RQID JORI Administration Anastrozole 1 mg 03/26/18 10:00 03/27/18 10:17 Arimidex - PO 1 mg DAILY JORI Administration Azithromycin 500 mg 03/27/18 10:00 03/27/18 10:15 Zithromax - PO 03/29/18 10:01 500 mg DAILY JORI Administration Budesonide/Formoterol Fumarate 2 puff 03/26/18 10:00 03/27/18 10:15 Symbicort 160/4.5mcg - IH 2 puff BID JORI Administration Cyclobenzaprine HCl 10 mg 03/25/18 22:23 Flexeril - PO BID PRN back pain Divalproex Sodium 1,000 mg 03/26/18 10:00 03/27/18 10:17 Depakote - PO 1,000 mg DAILY JORI Administration Divalproex Sodium 1,500 mg 03/25/18 22:30 03/26/18 21:25 Depakote - PO 1,500 mg HS JORI Administration Enoxaparin Sodium 40 mg 03/26/18 10:00 03/27/18 10:23 Lovenox - SQ Not Given DAILY J[facility]I Guaifenesin 600 mg 03/26/18 10:00 03/27/18 10:16 Mucinex - PO 600 mg BID JORI Administration Guaifenesin/Codeine Phosphate 10 ml 03/25/18 23:45 03/26/18 21:25 Robitussin Ac - PO 10 ml HS PRN Administration COUGH Levetiracetam 500 mg 03/25/18 22:30 03/27/18 10:17 Keppra - PO 500 mg BID JORI Administration Levothyroxine Sodium 125 mcg 03/26/18 07:00 03/27/18 06:07 Synthroid - PO 125 mcg DAILY@0700 J[facility]I Administration Losartan Potassium 50 mg 03/26/18 10:00 03/27/18 10:17 Cozaar - PO 50 mg DAILY [facility]I Administration Methylprednisolone Sodium Succinate 40 mg 03/26/18 06:00 03/27/18 12:05 Solu-Medrol - IVPUSH 40 mg Q6H J[facility]I Administration Pantoprazole Sodium 40 mg 03/26/18 10:00 03/27/18 10:17 Protonix - PO 40 mg DAILY [facility]I Administration Polyethylene Glycol 17 gm 03/26/18 10:00 03/27/18 10:16 Miralax (For Daily Use) - PO Not Given DAILY [facility] Imaging Chest x-ray:No infiltrates COPD ASSESSMENT/PLAN: Pulmonary COPD exacerbation - Continue solumedrol 60mg IVPB q6h, azithromycin 250mg po, duoneb qid, albuterol Q4H prn, cont home symbicort - robitussin AC PRN HS - guaifenesin 600mg BID - pulmonary consulted and followed HTN - cont home cozaar seizure d/o - cont home keppra and depakote hypothyroid - cont home synthroid, dose adjusted last visit, repeat TSH chronic low back pain - cont home flexeril PRN DVT PPX - lovenox SC FEN - tolerating po fluids - BMP in am - low sodium diet as tolerated Dispo: Pt currently requires further observation for management of her emergent condition. Visit type - Emergency Visit Emergency Visit: Yes ED Registration Date: 03/27/18 Care time: The patient presented to the Emergency Department on the above date and was hospitalized for further evaluation of their emergent condition. - New Patient This patient is new to me today: No - Critical Care Critical Care patient: No - Discharge Referral Referred to [facility] Med P.C[facility] No
[2018-03-27] MEDS: guaiFENesin/CODEINE 10 ML UNIT-DOSE CUPS PO PRN ×2 (15:05→21:47)
[2018-03-28] MEDS: LEVOTHYROXINE NA 125 MCG TABLET (FP) PO SCH (06:47)
[2018-03-28] MEDS: methylPREDNISolone NA SUCC 40 MG/1 ML VIAL IVPUSH SCH ×3 (06:48→17:14)
[2018-03-28 08:07] LABS: HEMATOCRIT 46.8 % (32.4-45.2); HEMOGLOBIN 15.5 GM/dl (10.7-15.3); MCH 32.3 pg (25.7-33.7); MEAN CELL VOLUME 97.9 fl (80-96); MEAN PLT VOLUME 7.1 fl (7.5-11.1); PLATELET COUNT 297 K/MM3 (134-434); RBC 4.78 M/mm3 (3.60-5.2); WHITE BLOOD COUNT 10.7 K/mm3 (4.0-10.8)
[2018-03-28 08:16] LABS: ANION GAP 8 MMOL/L (8-16); BLOOD UREA NITROGEN 21 mg/dl (7-18); CALCIUM 9.1 mg/dl (8.4-10.2); CHLORIDE 99 mmol/L (98-107); CO2 27 mmol/L (22-28); GLUCOSE,RANDOM 137 mg/dl (74-106); PHOSPHOROUS 3.9 mg/dl (2.5-4.6); POTASSIUM 4.4 mmol/L (3.5-5.1); SODIUM 134 mmol/L (136-145)
[2018-03-28 08:23] LABS: CREATININE < 0.6 mg/dl (0.6-1.3)
[2018-03-28 08:55] LABS: PLATELET ESTIMATE ADEQUATE
[2018-03-28] MEDS: ALBUTEROL SO4 2.5/IPRATROPIUM 0.5 INH SOL 3 ML VIAL.NEB. NEB SCH ×4 (09:00→20:00)
[2018-03-28] MEDS ORDERED: PT OWN MED DRAWER 7, Y5N ONE ×2 (10:29→10:50)
[2018-03-28] MEDS: BUDESONIDE/FORMETEROL FUMARATE 160/4.5 mcg INHALER IH SCH ×2 (10:40→21:08)
[2018-03-28] MEDS: levETIRAcetam 500 MG TABLET (FP) PO SCH ×2 (10:40→21:08)
[2018-03-28] MEDS: DIVALPROEX SODIUM 500 MG TABLET E.C. PO SCH ×2 (10:40→21:07)
[2018-03-28] MEDS: LOSARTAN POTASSIUM 50 MG TABLET (FP) PO SCH (10:41)
[2018-03-28] MEDS: POLYETHYLENE GLYCOL 3350 119 GM BTL PO SCH (10:41)
[2018-03-28] MEDS: ENOXAPARIN NA (PORCINE) 40 MG/0.4 ML DISP.SYRIN SQ SCH (10:41)
[2018-03-28] MEDS: PANTOPRAZOLE 40 MG TABLET (FP) PO SCH (10:41)
[2018-03-28] MEDS: ANASTROZOLE 1 MG TABLET PO SCH (10:41)
[2018-03-28] MEDS: guaiFENesin 600 MG TABLET.ER (FP) PO SCH ×2 (10:41→21:07)
--- NOTE | 2018-03-28 10:41 | PN ---
Progress Note, Physician History of Present Illness: pulmonary alert,still dyspneic with exertion,less congested,+ cough - Current Medication List Current Medications: Active Medications Acetaminophen (Tylenol -) 650 mg PO Q6H PRN PRN Reason: PAIN 1-5 OR FEVER Last Admin: 03/26/18 19:52 Dose: 650 mg Albuterol Sulfate (Ventolin 0.083% Nebulizer Soln -) 1 amp NEB Q1H PRN PRN Reason: SHORT OF BREATH/WHEEZING Last Admin: 03/27/18 06:06 Dose: 1 amp Albuterol/Ipratropium (Duoneb -) 1 amp NEB RQID [facility] Last Admin: 03/28/18 09:00 Dose: 1 amp Anastrozole (Arimidex -) 1 mg PO DAILY [facility] Last Admin: 03/27/18 10:17 Dose: 1 mg Azithromycin (Zithromax -) 500 mg PO DAILY [facility] Stop: 03/29/18 10:01 Last Admin: 03/27/18 10:15 Dose: 500 mg Budesonide/Formoterol Fumarate (Symbicort 160/4.5mcg -) 2 puff IH BID [facility] Last Admin: 03/27/18 21:51 Dose: 2 puff Cyclobenzaprine HCl (Flexeril -) 10 mg PO BID PRN PRN Reason: back pain Divalproex Sodium (Depakote -) 1,000 mg PO DAILY [facility] Last Admin: 03/27/18 10:17 Dose: 1,000 mg Divalproex Sodium (Depakote -) 1,500 mg PO HS [facility] Last Admin: 03/27/18 21:50 Dose: 1,500 mg Enoxaparin Sodium (Lovenox -) 40 mg SQ DAILY [facility] Last Admin: 03/27/18 10:23 Dose: Not Given Guaifenesin (Mucinex -) 600 mg PO BID [facility] Last Admin: 03/27/18 21:51 Dose: 600 mg Guaifenesin/Codeine Phosphate (Robitussin Ac -) 10 ml PO HS PRN PRN Reason: COUGH Last Admin: 03/27/18 21:47 Dose: 10 ml Levetiracetam (Keppra -) 500 mg PO BID [facility] Last Admin: 03/27/18 21:51 Dose: 500 mg Levothyroxine Sodium (Synthroid -) 125 mcg PO DAILY@0700 [facility] Last Admin: 03/28/18 06:47 Dose: 125 mcg Losartan Potassium (Cozaar -) 50 mg PO DAILY [facility] Last Admin: 03/27/18 10:17 Dose: 50 mg Methylprednisolone Sodium Succinate (Solu-Medrol -) 40 mg IVPUSH Q6H [facility] Last Admin: 03/28/18 06:48 Dose: 40 mg Pantoprazole Sodium (Protonix -) 40 mg PO DAILY [facility] Last Admin: 03/27/18 10:17 Dose: 40 mg Polyethylene Glycol (Miralax (For Daily Use) -) 17 gm PO DAILY [facility] Last Admin: 03/27/18 10:16 Dose: Not Given - Objective Vital Signs: Vital Signs Temperature 97.6 F 03/28/18 05:42 Pulse Rate 79 03/28/18 05:42 Respiratory Rate 18 03/28/18 05:42 Blood Pressure 141/67 03/28/18 05:42 O2 Sat by Pulse Oximetry (%) 100 03/28/18 05:42 Constitutional: Yes: Well Nourished, Calm Eyes: Yes: WNL HENT: Yes: WNL Neck: Yes: WNL Cardiovascular: Yes: Regular Rate and Rhythm, S1, S2 Respiratory: Yes: Rhonchi (scattered heron wheezes and rhonchi), Wheezes Gastrointestinal: Yes: Normal Bowel Sounds, Soft Extremities: Yes: WNL Edema: No Labs: CBC, BMP 03/28/18 07:15 03/28/18 07:15 INR, PTT INR 1.03 (0.82-1.09) 03/25/18 17:48 Assessment/Plan Problem List - Problems (1) COPD exacerbation Code(s): J44.1 - CHRONIC OBSTRUCTIVE PULMONARY DISEASE W (ACUTE) EXACERBATION (2) Breast cancer, right breast Code(s): C50.911 - MALIGNANT NEOPLASM OF UNSP SITE OF RIGHT FEMALE BREAST (3) GERD (gastroesophageal reflux disease) Code(s): K21.9 - GASTRO-ESOPHAGEAL REFLUX DISEASE WITHOUT ESOPHAGITIS Qualifiers: Esophagitis presence: without esophagitis Qualified Code(s): K21.9 - Gastro -esophageal reflux disease without esophagitis (4) Hypertension Code(s): I10 - ESSENTIAL (PRIMARY) HYPERTENSION Qualifiers: (5) Hypothyroidism Code(s): E03.9 - HYPOTHYROIDISM, UNSPECIFIED Qualifiers: (6) Lumbar disc disease Code(s): M51.9 - UNSP THORACIC, THORACOLUM AND LUMBOSACR INTVRT DISC DISORDER (7) Seizure disorder Code(s): G40.909 - EPILEPSY, UNSP, NOT INTRACTABLE, WITHOUT STATUS EPILEPTICUS Assessment/Plan O2 BRONCHODILATORS STEROIDS SAME DOSE ANTIBIOTICS/ CHEST PT OOB TO CHAIR DVT PROPHYLAXIS ADD THEO BURNS
[2018-03-28] MEDS: AZITHROMYCIN 250 MG TABLET PO SCH (10:47)
--- NOTE | 2018-03-28 11:03 | PN ---
Physical Exam: SUBJECTIVE: Patient seen and examined, The patient is ambulatory throughout nursing unit, Reports improvement of dyspnea. OBJECTIVE:patient is a 62 year old female with a past medical history significant for COPD, breast CA (remission) and HTN. Patient was aAdmitted from emergency department for COPD exacerbation. Vital Signs Period Temp Pulse Resp BP Sys/Kim Pulse Ox Last 24 Hr 97.6 F-98.3 F 66-87 18-19 130-148/58-67 92-100 GENERAL: The patient is awake, alert, and fully oriented, in no acute distress. HEAD: Normal with no signs of trauma. EYES: PERRL, extraocular movements intact, sclera anicteric, conjunctiva clear. No ptosis. ENT: Ears normal, nares patent, oropharynx clear without exudates, moist mucous membranes. NECK: Trachea midline, full range of motion, supple. LUNGS: Breath sounds equal, clear to auscultation bilaterally to apexes, diminished to bases, no wheezes, no crackles, no accessory muscle use. HEART: Regular rate and rhythm, S1, S2 without murmur, rub or gallop. ABDOMEN: Soft, nontender, nondistended, normoactive bowel sounds, no guarding, no rebound, no hepatosplenomegaly, no masses. EXTREMITIES: 2+ pulses, warm, well-perfused, no edema. NEUROLOGICAL: Cranial nerves II through XII grossly intact. Normal speech, gait not observed. PSYCH: Normal mood, normal affect. SKIN: Warm, dry, normal turgor, no rashes or lesions noted Laboratory Results - last 24 hr 03/26/18 03/28/18 03/28/18 07:30 07:15 07:15 WBC 10.7 RBC 4.78 Hgb 15.5 H Hct 46.8 H MCV 97.9 H MCH 32.3 MCHC 33.0 RDW 14.0 Plt Count 297 MPV 7.1 L Absolute Neuts (auto) 8.8 Neutrophils % No Result Required. Neutrophils % (Manual) 79.0 Lymphocytes % No Result Required. Lymphocytes % (Manual) 15.0 Monocytes % (Manual) 6 Platelet Estimate Adequate Sodium 134 L 134 L Potassium 4.8 D 4.4 Chloride 99 99 Carbon Dioxide 28 27 Anion Gap 7 L 8 BUN 17 21 H Creatinine 0.6 < 0.6 L Creat Clearance w eGFR > 60 > 60 Random Glucose 111 H 137 H Calcium 9.3 9.1 Phosphorus 3.9 Magnesium 2.0 Active Medications Generic Name Dose Route Start Last Admin Trade Name Freq PRN Reason Stop Dose Admin Acetaminophen 650 mg 03/25/18 22:23 03/26/18 19:52 Tylenol - PO 650 mg Q6H PRN Administration PAIN 1-5 OR FEVER Albuterol Sulfate 1 amp 03/26/18 15:22 03/27/18 06:06 Ventolin 0.083% Nebulizer Soln - NEB 1 amp Q1H PRN Administration SHORT OF BREATH/WHEEZING Albuterol/Ipratropium 1 amp 03/26/18 08:00 03/28/18 09:00 Duoneb - NEB 1 amp RQID JORI Administration Anastrozole 1 mg 03/26/18 10:00 03/28/18 10:41 Arimidex - PO 1 mg DAILY JORI Administration Azithromycin 500 mg 03/27/18 10:00 03/28/18 10:47 Zithromax - PO 03/29/18 10:01 500 mg DAILY JORI Administration Budesonide/Formoterol Fumarate 2 puff 03/26/18 10:00 03/28/18 10:40 Symbicort 160/4.5mcg - IH 2 puff BID JORI Administration Cyclobenzaprine HCl 10 mg 03/25/18 22:23 Flexeril - PO BID PRN back pain Divalproex Sodium 1,000 mg 03/26/18 10:00 03/28/18 10:40 Depakote - PO 1,000 mg DAILY [facility]I Administration Divalproex Sodium 1,500 mg 03/25/18 22:30 03/27/18 21:50 Depakote - PO 1,500 mg HS JORI Administration Enoxaparin Sodium 40 mg 03/26/18 10:00 03/28/18 10:41 Lovenox - SQ Not Given DAILY J[facility]I Guaifenesin 600 mg 03/26/18 10:00 03/28/18 10:41 Mucinex - PO 600 mg BID JORI Administration Guaifenesin/Codeine Phosphate 10 ml 03/25/18 23:45 03/27/18 21:47 Robitussin Ac - PO 10 ml HS PRN Administration COUGH Levetiracetam 500 mg 03/25/18 22:30 03/28/18 10:40 Keppra - PO 500 mg BID JORI Administration Levothyroxine Sodium 125 mcg 03/26/18 07:00 03/28/18 06:47 Synthroid - PO 125 mcg DAILY@0700 JORI Administration Losartan Potassium 50 mg 03/26/18 10:00 03/28/18 10:41 Cozaar - PO 50 mg DAILY J[facility]I Administration Methylprednisolone Sodium Succinate 40 mg 03/26/18 06:00 03/28/18 06:48 Solu-Medrol - IVPUSH 40 mg Q6H [facility]ORI Administration Pantoprazole Sodium 40 mg 03/26/18 10:00 03/28/18 10:41 Protonix - PO 40 mg DAILY [facility]I Administration Polyethylene Glycol 17 gm 03/26/18 10:00 03/28/18 10:41 Miralax (For Daily Use) - PO 17 gm DAILY JORI Administration Roflumilast 500 mcg 03/28/18 11:00 Daliresp - PO DAILY [facility] Imaging Chest x-ray:No infiltrates COPD ASSESSMENT/PLAN: Pulmonary COPD exacerbation - wheezing improved, decrease solumedrol 60mg TID, continue azithromycin 250mg po, duoneb qid, albuterol Q4H prn, cont home symbicort - robitussin AC PRN HS - guaifenesin 600mg BID - pulmonary consulted and following HTN - cont home cozaar seizure d/o - cont home keppra and depakote hypothyroid - cont home synthroid, dose adjusted last visit, repeat TSH chronic low back pain - cont home flexeril PRN DVT PPX - lovenox SC FEN - tolerating po fluids - BMP in am - low sodium diet as tolerated Dispo: Pt currently requires further observation for management of her emergent condition. Visit type - Emergency Visit Emergency Visit: Yes ED Registration Date: 03/27/18 Care time: The patient presented to the Emergency Department on the above date and was hospitalized for further evaluation of their emergent condition. - New Patient This patient is new to me today: No - Critical Care Critical Care patient: No - Discharge Referral Referred to [facility] No
[2018-03-28] MEDS: ROFLUMILAST 500 MCG TABLET PO SCH (11:37)
[2018-03-28] MEDS: guaiFENesin/CODEINE 10 ML UNIT-DOSE CUPS PO PRN (23:03)
[2018-03-29] MEDS: methylPREDNISolone NA SUCC 40 MG/1 ML VIAL IVPUSH SCH ×2 (01:08→10:33)
[2018-03-29] MEDS: LEVOTHYROXINE NA 125 MCG TABLET (FP) PO SCH (06:44)
--- NOTE | 2018-03-29 07:42 | PN ---
Progress Note, Physician History of Present Illness: PULMONARY ALERT,STILL CONGESTED,MOIST COUGH,+ ANNE - Current Medication List Current Medications: Active Medications Acetaminophen (Tylenol -) 650 mg PO Q6H PRN PRN Reason: PAIN 1-5 OR FEVER Last Admin: 03/26/18 19:52 Dose: 650 mg Albuterol Sulfate (Ventolin 0.083% Nebulizer Soln -) 1 amp NEB Q1H PRN PRN Reason: SHORT OF BREATH/WHEEZING Last Admin: 03/27/18 06:06 Dose: 1 amp Albuterol/Ipratropium (Duoneb -) 1 amp NEB RQID [facility] Last Admin: 03/28/18 20:00 Dose: 1 amp Anastrozole (Arimidex -) 1 mg PO DAILY [facility] Last Admin: 03/28/18 10:41 Dose: 1 mg Azithromycin (Zithromax -) 500 mg PO DAILY [facility] Stop: 03/29/18 10:01 Last Admin: 03/28/18 10:47 Dose: 500 mg Budesonide/Formoterol Fumarate (Symbicort 160/4.5mcg -) 2 puff IH BID [facility] Last Admin: 03/28/18 21:08 Dose: 2 puff Cyclobenzaprine HCl (Flexeril -) 10 mg PO BID PRN PRN Reason: back pain Divalproex Sodium (Depakote -) 1,000 mg PO DAILY [facility] Last Admin: 03/28/18 10:40 Dose: 1,000 mg Divalproex Sodium (Depakote -) 1,500 mg PO HS [facility] Last Admin: 03/28/18 21:07 Dose: 1,500 mg Enoxaparin Sodium (Lovenox -) 40 mg SQ DAILY [facility] Last Admin: 03/28/18 10:41 Dose: Not Given Guaifenesin (Mucinex -) 600 mg PO BID [facility] Last Admin: 03/28/18 21:07 Dose: 600 mg Levetiracetam (Keppra -) 500 mg PO BID [facility] Last Admin: 03/28/18 21:08 Dose: 500 mg Levothyroxine Sodium (Synthroid -) 125 mcg PO DAILY@0700 [facility] Last Admin: 03/29/18 06:44 Dose: 125 mcg Losartan Potassium (Cozaar -) 50 mg PO DAILY [facility] Last Admin: 03/28/18 10:41 Dose: 50 mg Methylprednisolone Sodium Succinate (Solu-Medrol -) 40 mg IVPUSH Q8H-IV JORI Last Admin: 03/29/18 01:08 Dose: 40 mg Pantoprazole Sodium (Protonix -) 40 mg PO DAILY JORI Last Admin: 03/28/18 10:41 Dose: 40 mg Polyethylene Glycol (Miralax (For Daily Use) -) 17 gm PO DAILY JORI Last Admin: 03/28/18 10:41 Dose: 17 gm Roflumilast (Daliresp -) 500 mcg PO DAILY JORI Last Admin: 03/28/18 11:37 Dose: 500 mcg - Objective Vital Signs: Vital Signs Temperature 98.9 F 03/29/18 06:00 Pulse Rate 68 03/29/18 06:00 Respiratory Rate 18 03/29/18 06:00 Blood Pressure 127/66 03/29/18 06:00 O2 Sat by Pulse Oximetry (%) 100 03/29/18 06:23 Constitutional: Yes: Well Nourished, Calm Eyes: Yes: WNL HENT: Yes: WNL Neck: Yes: WNL Cardiovascular: Yes: Regular Rate and Rhythm, S1, S2 Respiratory: Yes: Rhonchi (BILATERAL RHONCHI) Gastrointestinal: Yes: Normal Bowel Sounds, Soft Extremities: Yes: WNL Edema: No Labs: INR, PTT INR 1.03 (0.82-1.09) 03/25/18 17:48 Assessment/Plan Problem List - Problems (1) COPD exacerbation Code(s): J44.1 - CHRONIC OBSTRUCTIVE PULMONARY DISEASE W (ACUTE) EXACERBATION (2) Breast cancer, right breast Code(s): C50.911 - MALIGNANT NEOPLASM OF UNSP SITE OF RIGHT FEMALE BREAST (3) GERD (gastroesophageal reflux disease) Code(s): K21.9 - GASTRO-ESOPHAGEAL REFLUX DISEASE WITHOUT ESOPHAGITIS Qualifiers: Esophagitis presence: without esophagitis Qualified Code(s): K21.9 - Gastro -esophageal reflux disease without esophagitis (4) Hypertension Code(s): I10 - ESSENTIAL (PRIMARY) HYPERTENSION Qualifiers: (5) Hypothyroidism Code(s): E03.9 - HYPOTHYROIDISM, UNSPECIFIED Qualifiers: (6) Lumbar disc disease Code(s): M51.9 - UNSP THORACIC, THORACOLUM AND LUMBOSACR INTVRT DISC DISORDER (7) Seizure disorder Code(s): G40.909 - EPILEPSY, UNSP, NOT INTRACTABLE, WITHOUT STATUS EPILEPTICUS Assessment/Plan O2 BRONCHODILATORS INCREASE STEROIDS 60Q6 ANTIBIOTICS/ CHEST PT OOB TO CHAIR DVT PROPHYLAXIS ADD DALIRESP CHEST CT DR BURNS
[2018-03-29 07:56] LABS: BASO % 0.1 % (0-2.0); HEMATOCRIT 45.2 % (32.4-45.2); HEMOGLOBIN 15.1 GM/dl (10.7-15.3); LYMPH % 13.8 % (8-40); MCHC 33.4 g/dl (32.0-36.0); MEAN CELL VOLUME 98.8 fl (80-96); MEAN PLT VOLUME 6.7 fl (7.5-11.1); MONO % 4.3 % (3.8-10.2); NEUT % 81.8 % (42.8-82.8); PLATELET COUNT 318 K/MM3 (134-434); RBC 4.57 M/mm3 (3.60-5.2); RDW 13.7 % (11.6-15.6)
[2018-03-29 08:02] LABS: ANION GAP 8 MMOL/L (8-16); BLOOD UREA NITROGEN 18 mg/dl (7-18); CHLORIDE 94 mmol/L (98-107); CO2 30 mmol/L (22-28); CREATININE 0.5 mg/dl (0.6-1.3); GLUCOSE,RANDOM 126 mg/dl (74-106); POTASSIUM 4.7 mmol/L (3.5-5.1); SODIUM 132 mmol/L (136-145)
[2018-03-29] MEDS: ALBUTEROL SO4 2.5/IPRATROPIUM 0.5 INH SOL 3 ML VIAL.NEB. NEB SCH (08:30)
[2018-03-29] MEDS ORDERED: PT OWN MED DRAWER 7, Y5N ONE (10:28)
[2018-03-29] MEDS: BUDESONIDE/FORMETEROL FUMARATE 160/4.5 mcg INHALER IH SCH (10:29)
[2018-03-29] MEDS: ROFLUMILAST 500 MCG TABLET PO SCH (10:30)
[2018-03-29] MEDS: guaiFENesin 600 MG TABLET.ER (FP) PO SCH ×2 (10:30→21:36)
[2018-03-29] MEDS: levETIRAcetam 500 MG TABLET (FP) PO SCH ×2 (10:30→21:36)
[2018-03-29] MEDS: LOSARTAN POTASSIUM 50 MG TABLET (FP) PO SCH (10:30)
[2018-03-29] MEDS: AZITHROMYCIN 250 MG TABLET PO SCH (10:31)
[2018-03-29] MEDS: DIVALPROEX SODIUM 500 MG TABLET E.C. PO SCH ×2 (10:31→21:36)
[2018-03-29] MEDS: ANASTROZOLE 1 MG TABLET PO SCH (10:31)
[2018-03-29] MEDS: PANTOPRAZOLE 40 MG TABLET (FP) PO SCH (10:32)
[2018-03-29] MEDS: TIOTROPIUM BROMIDE 2.5 MCG (SPIRIVA) RESPIMAT INHALER IH SCH (10:33)
[2018-03-29] MEDS: ENOXAPARIN NA (PORCINE) 40 MG/0.4 ML DISP.SYRIN SQ SCH (10:33)
[2018-03-29] MEDS: POLYETHYLENE GLYCOL 3350 119 GM BTL PO SCH (10:33)
--- NOTE | 2018-03-29 12:57 | PN ---
Physical Exam: SUBJECTIVE: Patient seen and examined, reports ongoing cough and dyspnea upon exertion. OBJECTIVE: Patient is a 62 y/o female with a past medical history of COPD, breast CA (remission) and HTN. Patient was admitted from emergency department for COPD exacerbation. Vital Signs Period Temp Pulse Resp BP Sys/Kim Pulse Ox Last 24 Hr 97.6 F-98.9 F 68-95 18-20 127-142/53-69 94-100 GENERAL: The patient is awake, alert, and fully oriented, in no acute distress. HEAD: Normal with no signs of trauma. EYES: PERRL, extraocular movements intact, sclera anicteric, conjunctiva clear. No ptosis. ENT: Ears normal, nares patent, oropharynx clear without exudates, moist mucous membranes. NECK: Trachea midline, full range of motion, supple. LUNGS: Breath sounds equal, diminished to base, wheezing to apexes, no crackles , no accessory muscle use. HEART: Regular rate and rhythm, S1, S2 without murmur, rub or gallop. ABDOMEN: Soft, nontender, nondistended, normoactive bowel sounds, no guarding, no rebound, no hepatosplenomegaly, no masses. EXTREMITIES: 2+ pulses, warm, well-perfused, no edema. NEUROLOGICAL: Cranial nerves II through XII grossly intact. Normal speech, gait not observed. PSYCH: Normal mood, normal affect. SKIN: Warm, dry, normal turgor, no rashes or lesions noted Laboratory Results - last 24 hr 03/26/18 03/29/18 03/29/18 07:30 07:15 07:15 WBC 11.0 H RBC 4.57 Hgb 15.1 Hct 45.2 MCV 98.8 H MCH 33.0 MCHC 33.4 RDW 13.7 Plt Count 318 MPV 6.7 L Absolute Neuts (auto) 9.0 Neutrophils % 81.8 Lymphocytes % 13.8 Monocytes % 4.3 Eosinophils % 0.0 Basophils % 0.1 Sodium 134 L 132 L Potassium 4.8 D 4.7 Chloride 99 94 L Carbon Dioxide 28 30 H Anion Gap 7 L 8 BUN 17 18 Creatinine 0.6 0.5 L Creat Clearance w eGFR > 60 > 60 Random Glucose 111 H 126 H Calcium 9.3 9.0 TSH 0.14 L Free T4 03/29/18 07:15 WBC RBC Hgb Hct MCV MCH MCHC RDW Plt Count MPV Absolute Neuts (auto) Neutrophils % Lymphocytes % Monocytes % Eosinophils % Basophils % Sodium Potassium Chloride Carbon Dioxide Anion Gap BUN Creatinine Creat Clearance w eGFR Random Glucose Calcium TSH Free T4 1.10 Active Medications Generic Name Dose Route Start Last Admin Trade Name Freq PRN Reason Stop Dose Admin Acetaminophen 650 mg 03/25/18 22:23 03/26/18 19:52 Tylenol - PO 650 mg Q6H PRN Administration PAIN 1-5 OR FEVER Albuterol Sulfate 1 amp 03/29/18 10:08 Ventolin 0.083% Nebulizer Soln - NEB Q4H PRN SHORT OF BREATH/WHEEZING Anastrozole 1 mg 03/26/18 10:00 03/29/18 10:31 Arimidex - PO 1 mg DAILY JORI Administration Budesonide/Formoterol Fumarate 2 puff 03/26/18 10:00 03/29/18 10:29 Symbicort 160/4.5mcg - IH 2 puff BID JORI Administration Cyclobenzaprine HCl 10 mg 03/25/18 22:23 03/29/18 10:32 Flexeril - PO 10 mg BID PRN Administration back pain Divalproex Sodium 1,000 mg 03/26/18 10:00 03/29/18 10:31 Depakote - PO 1,000 mg DAILY JORI Administration Divalproex Sodium 1,500 mg 03/25/18 22:30 03/28/18 21:07 Depakote - PO 1,500 mg HS JORI Administration Enoxaparin Sodium 40 mg 03/26/18 10:00 03/29/18 10:33 Lovenox - SQ Not Given DAILY JORI Guaifenesin 600 mg 03/26/18 10:00 03/29/18 10:30 Mucinex - PO 600 mg BID JORI Administration Levetiracetam 500 mg 03/25/18 22:30 03/29/18 10:30 Keppra - PO 500 mg BID JORI Administration Levothyroxine Sodium 125 mcg 03/26/18 07:00 03/29/18 06:44 Synthroid - PO 125 mcg DAILY@0700 JORI Administration Losartan Potassium 50 mg 03/26/18 10:00 03/29/18 10:30 Cozaar - PO 50 mg DAILY JORI Administration Methylprednisolone Sodium Succinate 60 mg 03/29/18 15:00 Solu-Medrol - IVPUSH Q6H-IV JORI Pantoprazole Sodium 40 mg 03/26/18 10:00 03/29/18 10:32 Protonix - PO 40 mg DAILY JORI Administration Polyethylene Glycol 17 gm 03/26/18 10:00 03/29/18 10:33 Miralax (For Daily Use) - PO 17 gm DAILY JORI Administration Roflumilast 500 mcg 03/28/18 11:00 03/29/18 10:30 Daliresp - PO 500 mcg DAILY JORI Administration Tiotropium [place] 2 puff 03/29/18 10:30 03/29/18 10:33 Spiriva Respimat IH 2 puff DAILY JORI Administration Imaging Chest x-ray:No infiltrates COPD ASSESSMENT/PLAN: 1) Pulmonary COPD exacerbation - wheezing noted on exam, increase solumedrol 60mg to q6h, start brovan, continue azithromycin 250mg po, spirva, albuterol Q4H prn - robitussin AC PRN HS - guaifenesin 600mg BID - pulmonary consulted and following 2) HTN - cont home cozaar 3) seizure d/o - cont home keppra and depakote 4) hypothyroid - cont home synthroid, dose adjusted last visit, repeat TSH 5) chronic low back pain - cont home flexeril PRN DVT PPX - lovenox SC FEN - tolerating po fluids - BMP in am - low sodium diet as tolerated Dispo: Pt currently requires further observation for management of her emergent condition. Visit type - Emergency Visit Emergency Visit: Yes ED Registration Date: 03/27/18 Care time: The patient presented to the Emergency Department on the above date and was hospitalized for further evaluation of their emergent condition. - New Patient This patient is new to me today: No - Critical Care Critical Care patient: No - Discharge Referral Referred to [facility] Med P.C.: No
[2018-03-29] MEDS: methylPREDNISolone NA SUCC 125 MG/2 ML VIAL IVPUSH SCH ×2 (15:50→20:19)
[2018-03-29] MEDS: ALBUTEROL SO4 0.083% IH SOL 2.5 MG/3 ML VIAL.NEB. NEB PRN (18:31)
[2018-03-29] MEDS ORDERED: guaiFENesin/D-METHORPHAN HB 10 ML UNIT-DOSE CUPS PO PRN (18:36)
[2018-03-29] MEDS: ARFORMOTEROL TARTRATE 15 MCG/2 ML VIAL NEB SCH (20:19)
[2018-03-30] MEDS: methylPREDNISolone NA SUCC 125 MG/2 ML VIAL IVPUSH SCH ×2 (02:41→08:20)
[2018-03-30] MEDS: LEVOTHYROXINE NA 125 MCG TABLET (FP) PO SCH (06:07)
[2018-03-30] MEDS: ALBUTEROL SO4 0.083% IH SOL 2.5 MG/3 ML VIAL.NEB. NEB PRN (06:12)
[2018-03-30] MEDS: ARFORMOTEROL TARTRATE 15 MCG/2 ML VIAL NEB SCH (08:19)
[2018-03-30 08:44] LABS: BASO % 0.1 % (0-2.0); HEMOGLOBIN 15.8 GM/dl (10.7-15.3); LYMPH % 13.5 % (8-40); MCHC 33.7 g/dl (32.0-36.0); MEAN CELL VOLUME 98.1 fl (80-96); MEAN PLT VOLUME 6.9 fl (7.5-11.1); NEUT % 84.4 % (42.8-82.8); PLATELET COUNT 323 K/MM3 (134-434); RDW 13.8 % (11.6-15.6); WHITE BLOOD COUNT 11.7 K/mm3 (4.0-10.8)
[2018-03-30 08:55] LABS: ANION GAP 11 MMOL/L (8-16); BLOOD UREA NITROGEN 20 mg/dl (7-18); CALCIUM 9.4 mg/dl (8.4-10.2); CHLORIDE 93 mmol/L (98-107); CO2 29 mmol/L (22-28); GLUCOSE,RANDOM 141 mg/dl (74-106); MAGNESIUM 2.1 mg/dL (1.8-2.4); PHOSPHOROUS 3.1 mg/dl (2.5-4.6); POTASSIUM 4.5 mmol/L (3.5-5.1); SODIUM 133 mmol/L (136-145)
[2018-03-30 08:57] LABS: CREATININE < 0.6 mg/dl (0.6-1.3)
[2018-03-30] MEDS: ROFLUMILAST 500 MCG TABLET PO SCH (09:35)
[2018-03-30] MEDS: levETIRAcetam 500 MG TABLET (FP) PO SCH (09:35)
[2018-03-30] MEDS: guaiFENesin 600 MG TABLET.ER (FP) PO SCH (09:35)
[2018-03-30] MEDS: LOSARTAN POTASSIUM 50 MG TABLET (FP) PO SCH (09:35)
[2018-03-30] MEDS: ANASTROZOLE 1 MG TABLET PO SCH (09:35)
[2018-03-30] MEDS: DIVALPROEX SODIUM 500 MG TABLET E.C. PO SCH (09:35)
[2018-03-30] MEDS: PANTOPRAZOLE 40 MG TABLET (FP) PO SCH (09:35)
[2018-03-30] MEDS: ENOXAPARIN NA (PORCINE) 40 MG/0.4 ML DISP.SYRIN SQ SCH ×2 (09:36→09:41)
[2018-03-30] MEDS: TIOTROPIUM BROMIDE 2.5 MCG (SPIRIVA) RESPIMAT INHALER IH SCH (09:36)
[2018-03-30] MEDS: POLYETHYLENE GLYCOL 3350 119 GM BTL PO SCH (09:36)
--- NOTE | 2018-03-30 09:39 | PN ---
Physical Exam: SUBJECTIVE: Patient seen and examined. Feels that dyspnea has improved. Was able to walk around nursing station. No cough, fevers, chills. OBJECTIVE: Ambulatory saturation 92% on room air. Vital Signs Period Temp Pulse Resp BP Sys/Kim Pulse Ox Last 24 Hr 97.7 F-98.3 F 58-87 16-19 122-140/54-69 92-99 GENERAL: The patient is awake, alert, and fully oriented, in no acute distress. HEAD: Normal with no signs of trauma. EYES: PERRL, extraocular movements intact, sclera anicteric, conjunctiva clear. No ptosis. ENT: Ears normal, nares patent, oropharynx clear without exudates, moist mucous membranes. NECK: Trachea midline, full range of motion, supple. LUNGS: Breath sounds equal, clear to auscultation bilaterally, no wheezes, no crackles, no accessory muscle use. Appears mildly dyspneic at end of long conversation. HEART: Regular rate and rhythm, S1, S2 without murmur, rub or gallop. ABDOMEN: Soft, nontender, nondistended, normoactive bowel sounds, no guarding, no rebound, no hepatosplenomegaly, no masses. EXTREMITIES: 2+ pulses, warm, well-perfused, no edema. NEUROLOGICAL: Cranial nerves II through XII grossly intact. Normal speech, gait not observed. PSYCH: Normal mood, normal affect. SKIN: Warm, dry, normal turgor, no rashes or lesions noted Laboratory Results - last 24 hr 03/30/18 03/30/18 07:20 07:20 WBC 11.7 H RBC 4.80 Hgb 15.8 H Hct 47.0 H MCV 98.1 H MCH 33.0 MCHC 33.7 RDW 13.8 Plt Count 323 MPV 6.9 L Absolute Neuts (auto) 9.9 Neutrophils % 84.4 H Lymphocytes % 13.5 Monocytes % 2.0 L Eosinophils % 0.0 Basophils % 0.1 Sodium 133 L Potassium 4.5 Chloride 93 L Carbon Dioxide 29 H Anion Gap 11 BUN 20 H Creatinine < 0.6 L Creat Clearance w eGFR > 60 Random Glucose 141 H Calcium 9.4 Phosphorus 3.1 D Magnesium 2.1 Active Medications Generic Name Dose Route Start Last Admin Trade Name Freq PRN Reason Stop Dose Admin Acetaminophen 650 mg 03/25/18 22:23 03/26/18 19:52 Tylenol - PO 650 mg Q6H PRN Administration PAIN 1-5 OR FEVER Albuterol Sulfate 1 amp 03/29/18 10:08 03/30/18 06:12 Ventolin 0.083% Nebulizer Soln - NEB 1 amp Q4H PRN Administration SHORT OF BREATH/WHEEZING Anastrozole 1 mg 03/26/18 10:00 03/30/18 09:35 Arimidex - PO 1 mg DAILY JORI Administration Arformoterol Tartrate 1 amp 03/29/18 20:00 03/30/18 08:19 Brovana (Restricted To Pulmonology/Resp) - NEB 1 amp RBID JORI Administration Cyclobenzaprine HCl 10 mg 03/25/18 22:23 03/29/18 10:32 Flexeril - PO 10 mg BID PRN Administration back pain Divalproex Sodium 1,000 mg 03/26/18 10:00 03/30/18 09:35 Depakote - PO 1,000 mg DAILY JORI Administration Divalproex Sodium 1,500 mg 03/25/18 22:30 03/29/18 21:36 Depakote - PO 1,500 mg HS JORI Administration Enoxaparin Sodium 40 mg 03/26/18 10:00 03/30/18 09:36 Lovenox - SQ 40 mg DAILY JORI Administration Guaifenesin 600 mg 03/26/18 10:00 03/30/18 09:35 Mucinex - PO 600 mg BID JORI Administration Guaifenesin 10 ml 03/29/18 18:36 Robitussin Dm - PO Q8H PRN COUGH Levetiracetam 500 mg 03/25/18 22:30 03/30/18 09:35 Keppra - PO 500 mg BID JORI Administration Levothyroxine Sodium 125 mcg 03/26/18 07:00 03/30/18 06:07 Synthroid - PO 125 mcg DAILY@0700 JORI Administration Losartan Potassium 50 mg 03/26/18 10:00 03/30/18 09:35 Cozaar - PO 50 mg DAILY JORI Administration Methylprednisolone Sodium Succinate 60 mg 03/29/18 15:00 03/30/18 08:20 Solu-Medrol - IVPUSH 60 mg Q6H-IV JORI Administration Pantoprazole Sodium 40 mg 03/26/18 10:00 03/30/18 09:35 Protonix - PO 40 mg DAILY JORI Administration Polyethylene Glycol 17 gm 03/26/18 10:00 03/30/18 09:36 Miralax (For Daily Use) - PO 17 gm DAILY JORI Administration Roflumilast 500 mcg 03/28/18 11:00 03/30/18 09:35 Daliresp - PO 500 mcg DAILY JORI Administration Tiotropium [place] 2 puff 03/29/18 10:30 03/30/18 09:36 Spiriva Respimat IH 2 puff DAILY JORI Administration Imaging Chest x-ray:No infiltrates COPD ASSESSMENT/PLAN: 62-year-old female hospital day #6 for COPD exacerbation. 1) Pulmonary COPD exacerbation - Resolution of wheezing - On Solumedrol 60mg IVPB q6h - Continue Brovana, Spiriva, Azithromycin 250mg po daily, albuterol neb q4h prn - Robitussin AC prn - Guaifenesin 600mg po bid - Pulm following 2) HTN - At goal, cont home Cozaar 3) Seizure disorder (none x 30 yrs) - Cont home Keppra and Depakote 4) Hypothyroidism - Cont home Synthroid - TSH is low but Synthroid was recently decreased by primary 5) Chronic LBP - Cont home Flexeril PRN 6) Ppx - Lovenox, ambulation 7) F/E/N -Low sodium diet Dispo: Discuss steroid taper/dispo with pulm. Visit type - Emergency Visit Emergency Visit: Yes ED Registration Date: 03/27/18 Care time: The patient presented to the Emergency Department on the above date and was hospitalized for further evaluation of their emergent condition. - New Patient This patient is new to me today: Yes Date on this admission: 03/30/18 - Critical Care Critical Care patient: No
--- NOTE | 2018-03-30 11:35 | PN ---
Progress Note (short form) - Note Progress Note: PULMONARY AMBULATING IN HALLWAY OFF O2 PF 180L/M VSS/AFEBRILE ANICTERIC DIMINISHED WITH FAINT END EXP WHEEZE S1S2 BS+ NO EDEMA LABS/CT/MEDS/NOTES REVIEWED CHECK SPO2/PRE/POST AMB ON R/A WOULD CONTINUE TREATMENT OUTPATIENT DISCUSSED WITH ARCHEOLOGY FACULTY MEMBER PRED 40 0D BRONCHODILATORS COMPLETED ABS F/U CT CHEST FOR PULMONARY NODULE WILL NEED PULMONARY REHAB R LEATHA CARDENAS Problem List - Problems (1) COPD exacerbation Code(s): J44.1 - CHRONIC OBSTRUCTIVE PULMONARY DISEASE W (ACUTE) EXACERBATION (2) Breast cancer, right breast Code(s): C50.911 - MALIGNANT NEOPLASM OF UNSP SITE OF RIGHT FEMALE BREAST (3) GERD (gastroesophageal reflux disease) Code(s): K21.9 - GASTRO-ESOPHAGEAL REFLUX DISEASE WITHOUT ESOPHAGITIS Qualifiers: Esophagitis presence: without esophagitis Qualified Code(s): K21.9 - Gastro -esophageal reflux disease without esophagitis (4) Hypertension Code(s): I10 - ESSENTIAL (PRIMARY) HYPERTENSION Qualifiers: (5) Hypothyroidism Code(s): E03.9 - HYPOTHYROIDISM, UNSPECIFIED Qualifiers: (6) Lumbar disc disease Code(s): M51.9 - UNSP THORACIC, THORACOLUM AND LUMBOSACR INTVRT DISC DISORDER (7) Seizure disorder Code(s): G40.909 - EPILEPSY, UNSP, NOT INTRACTABLE, WITHOUT STATUS EPILEPTICUS
--- NOTE | 2018-03-30 11:39 | DS ---
Physical Exam: SUBJECTIVE: Patient seen and examined. See progress note from earlier today. OBJECTIVE: Vital Signs Period Temp Pulse Resp BP Sys/Kim Pulse Ox Last 24 Hr 97.7 F-98.3 F 58-87 16-19 122-140/54-69 92-99 PHYSICAL EXAM GENERAL: The patient is awake, alert, and fully oriented, in no acute distress. HEAD: Normal with no signs of trauma. EYES: PERRL, extraocular movements intact, sclera anicteric, conjunctiva clear. ENT: Ears normal, nares patent, oropharynx clear without exudates, moist mucous membranes. NECK: Trachea midline, full range of motion, supple. LUNGS: Breath sounds equal, clear to auscultation bilaterally, no wheezes, no crackles, no accessory muscle use. Mild dyspnea on exertion, maintains ambulatory SpO2 92% and greater. HEART: Regular rate and rhythm, S1, S2 without murmur, rub or gallop. ABDOMEN: Soft, nontender, nondistended, normoactive bowel sounds, no guarding, no rebound, no hepatosplenomegaly, no masses. EXTREMITIES: 2+ pulses, warm, well-perfused, no edema. NEUROLOGICAL: Cranial nerves II through XII grossly intact. Normal speech, gait not observed. PSYCH: Normal mood, normal affect. SKIN: Warm, dry, normal turgor, no rashes or lesions noted. LABS Laboratory Results - last 24 hr 03/30/18 03/30/18 07:20 07:20 WBC 11.7 H RBC 4.80 Hgb 15.8 H Hct 47.0 H MCV 98.1 H MCH 33.0 MCHC 33.7 RDW 13.8 Plt Count 323 MPV 6.9 L Absolute Neuts (auto) 9.9 Neutrophils % 84.4 H Lymphocytes % 13.5 Monocytes % 2.0 L Eosinophils % 0.0 Basophils % 0.1 Sodium 133 L Potassium 4.5 Chloride 93 L Carbon Dioxide 29 H Anion Gap 11 BUN 20 H Creatinine < 0.6 L Creat Clearance w eGFR > 60 Random Glucose 141 H Calcium 9.4 Phosphorus 3.1 D Magnesium 2.1 HOSPITAL COURSE: This is a 62-year-old female with COPD, HTN, history of breast ca s/p lumpectomy/LND on Arimidex admitted 03/[address] chest shows no infiltrate, new ABDI nodule (5mm, 3 month followup recommended). She was placed on albuterol nebs, azithromycin, IV Solu-Medrol, Daliresp, Spiriva (home med), and Brovana (Symbicort home med). Wheezing resolved, dyspnea resolved. She is ambulatory and maintaining her saturation on room air. She established care with Dr. Harper, who will see her on Monday. She will continue Symbicort/Spiriva and albuterol nebs at home. We will add prednisone 40mg daily and Daliresp. Return precautions reviewed. [address] discussed with patient and she agrees. Date of Admission:03/27/18 Date of Discharge: 03/30/18 Minutes to complete discharge: 35 Discharge Summary Reason For Visit: COPD WITH ACUTE EXACERBATION Current Active Problems COPD exacerbation (Acute) Condition: Good - Instructions Diet, Activity, Other Instructions: -Take prednisone 2 tablets (40mg) daily until you see Dr. Harper on Monday -Continue your Spiriva, Symbicort, and albuterol nebulizers as needed -Start taking Daliresp once a day (started while you were in the hospital) -Return for worsening shortness of breath, fever, chest pain, or any other concerning symptoms Referrals: Bhupendra Harper MD [Staff Physician] - 04/04/18 Disposition: HOME - Home Medications Comprehensive Discharge Medication List: Ambulatory Orders Divalproex Sodium [Depakote] 1,000 mg PO DAILY 09/22/17 Divalproex Sodium [Depakote] 1,500 mg PO HS 09/22/17 levETIRAcetam [Keppra -] 500 mg PO BID 09/22/17 Budesonide/Formeterol Fumarate [SYMBICORT 160/4.5mcg -] 2 puff IH BID #1 inhaler 09/27/17 Levothyroxine [Synthroid -] 125 mcg PO DAILY@0700 #30 tablet 09/27/17 Polyethylene Glycol 3350 [Miralax 119 gm Btl -] 17 gm PO DAILY #1 bottle Tiotropium [place] [Spiriva] 1 puff IH DAILY #1 inh 09/27/17 Anastrozole [Arimidex -] 1 mg PO DAILY 02/18/18 Cyclobenzaprine HCl [Flexeril 10 mg] 10 mg PO BID PRN 02/18/18 Losartan Potassium 50 mg PO DAILY 02/18/18 Rabeprazole Sodium [Aciphex] 20 mg PO DAILY 02/18/18 Acetaminophen [Tylenol .Regular Strength -] 650 mg PO Q6H PRN tablet 02/19/18 Albuterol 0.083% Nebulizer [place] [Ventolin 0.083% Nebulizer Soln -] 1 neb NEB Q4H PRN #120 vial 02/19/18 Prednisone [Deltasone] 40 mg PO DAILY 03/25/18 This patient is new to me today: Yes Date on this admission: 03/30/18 Emergency Visit: Yes ED Registration Date: 03/27/18 Care time: The patient presented to the Emergency Department on the above date and was hospitalized for further evaluation of their emergent condition. Critical Care patient: No - Discharge Referral Referred to [facility] Med P.C.: No
[2018-03-30 12:26] VITALS: PULSE 81
[2018-03-30 14:38] VITALS: BP 126/70; TEMP 98.6
== END 2018-03-30 15:17 | disposition home or self-care (01) | DRG 140 ==
LOC: FER 15:39 → UNDOADMIN 18:19 → FM/S 18:19 → INTOOBSV 18:42 → OBSVTOIN 03-27 12:59
PROVIDERS: ADMIT Hospitalist; ATTEND Registered Nurse Emergency
DX: J44.1 Chronic obstructive pulmonary disease with (acute) exacerbation (principal); G40.89 Other seizures; I10 Essential (primary) hypertension; E03.9 Hypothyroidism, unspecified; K59.00 Constipation, unspecified; Z87.891 Personal history of nicotine dependence; M54.5 Low back pain; C50.911 Malignant neoplasm of unspecified site of right female breast; K21.9 Gastro-esophageal reflux disease without esophagitis; D72.829 Elevated white blood cell count, unspecified
CPT/HCPCS: 36415; 71046-TC-FY; 71250-TC; 80048; 80053; 81003; 82803; 83735; 84100; 84439; 84443; 84484; 85025; 85610; 85730; 93005; 94640; 99283-25; G0378; J0131; J7620

== ENCOUNTER 2019-01-16 09:47 | Day surgery (SDC) | payer OTHER ==
[2019-01-10 15:30] VITALS: BMI 23.1
[2019-01-16] MEDS ORDERED: PROPOFOL 20 ML ONE ×2 (12:14)
[2019-01-16] MEDS ORDERED: LIDOCAINE HCL/PF 2% SDV 5ML VIAL ONE (12:14)
[2019-01-16 13:41] VITALS: BP 134/72; PULSE 67; TEMP 97.8
--- NOTE | 2019-01-21 17:05 | PATH ---
Surgical Pathology Report Patient Name: LUAN HORTON [facility]. Rec. #: [id number] /Age/Gender: 1955 (Age: 63) / F Account: [id number] [facility] Taken: 01/16/2019 Received: 01/18/2019 Reported: 01/21/2019 Physicians: Rachna Singh M.D. Specimen(s) Received COLD BIOPSY RECTUM POLYP Clinical History Abdominal pain Postoperative diagnosis: Polyp, hemorrhoids Final Diagnosis RECTAL POLYP, BIOPSY: HYPERPLASTIC POLYP. Electronically Signed Sushila Santos M.D. Gross Description Received in formalin, labeled "rectum polyp" is a chilel, irregular portion of soft tissue measuring 0.4 cm. in greatest dimension. The specimen is submitted in toto in one cassette. 01/18/201901/18/2019
== END 2019-01-16 13:41 | disposition home or self-care (01) ==
LOC: FASU-ENDO 09:47
PROVIDERS: ATTEND Internal Medicine Gastroenterology
PROC: 0DBP8ZZ Excision of Rectum, Via Natural or Artificial Opening Endoscopic (ICD-10-PCS; principal; 2019-01-16 12:23)
DX: R10.9 Unspecified abdominal pain (principal); K62.1 Rectal polyp; K63.5 Polyp of colon; K64.8 Other hemorrhoids
CPT/HCPCS: 88305-TC

== ENCOUNTER 2021-11-22 04:47 | Inpatient (IN) | payer BC, OTHER ==
[2021-11-18 12:42] VITALS: BMI 32.1
[2021-11-22] MEDS ORDERED: ACETAMINOPHEN INJECTION 100 ML IVPB ONE (08:53)
[2021-11-22] MEDS ORDERED: ACETAMINOPHEN 1000 MG/100 ML BAG IVPB ONE (08:58)
[2021-11-22] MEDS ORDERED: morphine SULFATE 4 MG/ML VIAL IVPUSH ONE (12:31)
[2021-11-22] MEDS: morphine SULFATE 4 MG/ML VIAL IVPUSH PRN ×2 (13:40→20:00)
[2021-11-22] MEDS: DIVALPROEX SODIUM 500 MG TABLET E.C. PO SCH ×2 (18:34→21:10)
[2021-11-22] MEDS: levETIRAcetam 500 MG TABLET (FP) PO SCH ×2 (18:34→21:10)
[2021-11-22] MEDS: ROFLUMILAST 500 MCG TABLET PO SCH (18:37)
[2021-11-22] MEDS: ACETAMINOPHEN 1000 MG/100 ML BAG IVPB PRN (21:01)
[2021-11-22] MEDS: BUDESONIDE/FORMETEROL FUMARATE 160/4.5 mcg INHALER IH SCH (21:38)
[2021-11-23] MEDS: morphine SULFATE 4 MG/ML VIAL IVPUSH PRN ×4 (01:15→20:07)
[2021-11-23] MEDS: LEVOTHYROXINE NA 125 MCG TABLET (FP) PO SCH (06:08)
[2021-11-23] MEDS: ACETAMINOPHEN 1000 MG/100 ML BAG IVPB PRN (06:09)
[2021-11-23] MEDS ORDERED: ALBUTEROL SO4 HFA INHALER IH PRN (09:09)
[2021-11-23] MEDS: LOSARTAN POTASSIUM 50 MG TABLET PO SCH (09:55)
[2021-11-23] MEDS: DIVALPROEX SODIUM 500 MG TABLET E.C. PO SCH ×2 (09:55→21:53)
[2021-11-23] MEDS: ROFLUMILAST 500 MCG TABLET PO SCH (09:55)
[2021-11-23] MEDS: levETIRAcetam 500 MG TABLET (FP) PO SCH ×2 (09:55→21:53)
[2021-11-23] MEDS: BUDESONIDE/FORMETEROL FUMARATE 160/4.5 mcg INHALER IH SCH ×2 (09:56→21:55)
[2021-11-23] MEDS ORDERED: predniSONE 20 MG TABLET (UD) PO SCH (10:00)
[2021-11-23 10:22] LABS: BASO % 0.2 % (0-2.0); CALCIUM 8.9 mg/dL (8.5-10.1); EOS % 1.3 % (0-4.5); HEMOGLOBIN 13.4 GM/dL (10.7-15.3); MCH 31.4 pg (25.7-33.7); MCHC 33.5 g/dl (32.0-36.0); MEAN CELL VOLUME 93.7 fl (80-96); MEAN PLT VOLUME 7.1 fl (7.5-11.1); MONO % 9.2 % (3.8-10.2); NEUT % 54.3 % (42.8-82.8); PLATELET COUNT 239 10^3/uL (134-434); RBC 4.26 M/mm3 (3.60-5.2); RDW 14.9 % (11.6-15.6); WHITE BLOOD COUNT 7.2 K/mm3 (4.0-10.0)
[2021-11-23 10:23] LABS: ALBUMIN 3.5 g/dl (3.4-5.0); BLOOD UREA NITROGEN 10.6 mg/dL (7-18)
[2021-11-23 10:25] LABS: PHOSPHOROUS 2.8 mg/dL (2.5-4.9)
[2021-11-23 10:26] LABS: CREATININE 0.5 mg/dL (0.55-1.3)
[2021-11-23 10:27] LABS: BILIRUBIN,TOTAL 0.4 mg/dL (0.2-1); TOT PROT 6.5 g/dl (6.4-8.2)
[2021-11-23 10:32] LABS: MAGNESIUM 2.1 mg/dL (1.8-2.4)
[2021-11-23] MEDS: ANASTROZOLE 1 MG TABLET PO SCH (11:14)
[2021-11-23] MEDS: TIOTROPIUM BROMIDE 2.5 MCG (SPIRIVA) RESPIMAT INHALER IH SCH (11:14)
[2021-11-23] MEDS: methylPREDNISolone NA SUCC 40 MG/1 ML VIAL IVPUSH SCH ×2 (11:26→18:14)
[2021-11-23] MEDS: ALBUTEROL SO4 2.5/IPRATROPIUM 0.5 INH SOL 3 ML VIAL.NEB. NEB SCH ×3 (11:37→20:00)
[2021-11-23] MEDS: GABAPENTIN 250 MG/5 ML ORAL SOLUTION, 470 ML BOTTLE PO SCH (21:54)
[2021-11-24] MEDS: methylPREDNISolone NA SUCC 40 MG/1 ML VIAL IVPUSH SCH ×3 (01:51→17:45)
[2021-11-24] MEDS: morphine SULFATE 4 MG/ML VIAL IVPUSH PRN ×4 (01:51→20:31)
[2021-11-24] MEDS: LEVOTHYROXINE NA 125 MCG TABLET (FP) PO SCH (06:14)
[2021-11-24] MEDS: GABAPENTIN 250 MG/5 ML ORAL SOLUTION, 470 ML BOTTLE PO SCH ×3 (06:59→21:08)
[2021-11-24 07:39] LABS: BASO % 0.2 % (0-2.0); HEMATOCRIT 42.7 % (32.4-45.2); HEMOGLOBIN 14.3 GM/dL (10.7-15.3); LYMPH % 15.1 % (8-40); MCH 31.2 pg (25.7-33.7); MCHC 33.5 g/dl (32.0-36.0); MEAN CELL VOLUME 93.2 fl (80-96); NEUT % 82.7 % (42.8-82.8); PLATELET COUNT 248 10^3/uL (134-434); RBC 4.58 M/mm3 (3.60-5.2); RDW 14.7 % (11.6-15.6); WHITE BLOOD COUNT 9.8 K/mm3 (4.0-10.0)
[2021-11-24 08:20] LABS: CALCIUM 9.7 mg/dL (8.5-10.1)
[2021-11-24 08:21] LABS: ALBUMIN 3.7 g/dl (3.4-5.0); MAGNESIUM 2.2 mg/dL (1.8-2.4)
[2021-11-24 08:22] LABS: PHOSPHOROUS 3.2 mg/dL (2.5-4.9)
[2021-11-24 08:23] LABS: BILIRUBIN,TOTAL 0.6 mg/dL (0.2-1); BLOOD UREA NITROGEN 13.1 mg/dL (7-18)
[2021-11-24 08:24] LABS: TOT PROT 6.8 g/dl (6.4-8.2)
[2021-11-24 08:26] LABS: CREATININE 0.4 mg/dL (0.55-1.3)
[2021-11-24] MEDS: ALBUTEROL SO4 2.5/IPRATROPIUM 0.5 INH SOL 3 ML VIAL.NEB. NEB SCH ×3 (08:27→20:15)
[2021-11-24] MEDS: LOSARTAN POTASSIUM 50 MG TABLET PO SCH (10:06)
[2021-11-24] MEDS: DIVALPROEX SODIUM 500 MG TABLET E.C. PO SCH ×2 (10:06→21:08)
[2021-11-24] MEDS: levETIRAcetam 500 MG TABLET (FP) PO SCH ×2 (10:06→21:08)
[2021-11-24] MEDS: ROFLUMILAST 500 MCG TABLET PO SCH (10:07)
[2021-11-24] MEDS: ANASTROZOLE 1 MG TABLET PO SCH (10:07)
[2021-11-24] MEDS: TIOTROPIUM BROMIDE 2.5 MCG (SPIRIVA) RESPIMAT INHALER IH SCH (10:11)
[2021-11-24] MEDS: BUDESONIDE/FORMETEROL FUMARATE 160/4.5 mcg INHALER IH SCH ×2 (10:11→21:09)
[2021-11-24 14:08] LABS: SARS-CoV-2 NAA Not Detected (Not Detected)
[2021-11-25] MEDS: methylPREDNISolone NA SUCC 40 MG/1 ML VIAL IVPUSH SCH ×3 (01:09→17:31)
[2021-11-25] MEDS: LEVOTHYROXINE NA 125 MCG TABLET (FP) PO SCH (06:21)
[2021-11-25] MEDS: GABAPENTIN 250 MG/5 ML ORAL SOLUTION, 470 ML BOTTLE PO SCH ×3 (06:21→21:05)
[2021-11-25] MEDS: morphine SULFATE 4 MG/ML VIAL IVPUSH PRN ×3 (06:25→22:11)
[2021-11-25] MEDS: ALBUTEROL SO4 2.5/IPRATROPIUM 0.5 INH SOL 3 ML VIAL.NEB. NEB SCH ×5 (07:37→20:00)
[2021-11-25 08:57] LABS: BASO % 0.1 % (0-2.0); HEMATOCRIT 38.8 % (32.4-45.2); LYMPH % 12.3 % (8-40); MCH 30.8 pg (25.7-33.7); MCHC 33.4 g/dl (32.0-36.0); MEAN CELL VOLUME 92.1 fl (80-96); MEAN PLT VOLUME 7.2 fl (7.5-11.1); MONO % 3.3 % (3.8-10.2); NEUT % 84.3 % (42.8-82.8); PLATELET COUNT 245 10^3/uL (134-434); RBC 4.21 M/mm3 (3.60-5.2); RDW 14.9 % (11.6-15.6); WHITE BLOOD COUNT 13.5 K/mm3 (4.0-10.0)
[2021-11-25 09:21] LABS: ALBUMIN 3.4 g/dl (3.4-5.0); CALCIUM 9.4 mg/dL (8.5-10.1); MAGNESIUM 2.3 mg/dL (1.8-2.4)
[2021-11-25 09:24] LABS: CREATININE 0.5 mg/dL (0.55-1.3)
[2021-11-25 09:26] LABS: BILIRUBIN,TOTAL 0.3 mg/dL (0.2-1); TOT PROT 6.5 g/dl (6.4-8.2)
[2021-11-25] MEDS: levETIRAcetam 500 MG TABLET (FP) PO SCH ×2 (10:04→21:05)
[2021-11-25] MEDS: DIVALPROEX SODIUM 500 MG TABLET E.C. PO SCH ×2 (10:04→21:05)
[2021-11-25] MEDS: LOSARTAN POTASSIUM 50 MG TABLET PO SCH (10:04)
[2021-11-25] MEDS: ROFLUMILAST 500 MCG TABLET PO SCH (10:04)
[2021-11-25] MEDS: ANASTROZOLE 1 MG TABLET PO SCH (10:05)
[2021-11-25] MEDS ORDERED: ACETAMINOPHEN 500 MG TABLET (FP) PO ONE (10:20)
[2021-11-25] MEDS: BUDESONIDE/FORMETEROL FUMARATE 160/4.5 mcg INHALER IH SCH ×2 (10:52→21:06)
[2021-11-25] MEDS: TIOTROPIUM BROMIDE 2.5 MCG (SPIRIVA) RESPIMAT INHALER IH SCH (10:53)
[2021-11-25] MEDS: ACETAMINOPHEN 325 MG TABLET (FP) PO PRN (19:12)
[2021-11-26] MEDS: methylPREDNISolone NA SUCC 40 MG/1 ML VIAL IVPUSH SCH ×3 (01:12→18:19)
[2021-11-26] MEDS: morphine SULFATE 4 MG/ML VIAL IVPUSH PRN ×4 (04:02→22:29)
[2021-11-26] MEDS: LEVOTHYROXINE NA 125 MCG TABLET (FP) PO SCH (06:19)
[2021-11-26] MEDS: GABAPENTIN 250 MG/5 ML ORAL SOLUTION, 470 ML BOTTLE PO SCH ×3 (06:19→21:12)
[2021-11-26] MEDS: ALBUTEROL SO4 2.5/IPRATROPIUM 0.5 INH SOL 3 ML VIAL.NEB. NEB SCH ×4 (07:13→20:17)
[2021-11-26 08:48] LABS: BASO % 0.1 % (0-2.0); HEMATOCRIT 39.1 % (32.4-45.2); HEMOGLOBIN 13.4 GM/dL (10.7-15.3); LYMPH % 10.9 % (8-40); MCH 31.7 pg (25.7-33.7); MCHC 34.1 g/dl (32.0-36.0); MEAN CELL VOLUME 92.9 fl (80-96); MEAN PLT VOLUME 7.2 fl (7.5-11.1); MONO % 2.7 % (3.8-10.2); NEUT % 86.3 % (42.8-82.8); PLATELET COUNT 256 10^3/uL (134-434); RBC 4.22 M/mm3 (3.60-5.2); RDW 14.7 % (11.6-15.6); WHITE BLOOD COUNT 11.9 K/mm3 (4.0-10.0)
[2021-11-26 09:01] LABS: CALCIUM 9.3 mg/dL (8.5-10.1)
[2021-11-26 09:02] LABS: ALBUMIN 3.5 g/dl (3.4-5.0); BLOOD UREA NITROGEN 16.1 mg/dL (7-18); MAGNESIUM 2.4 mg/dL (1.8-2.4)
[2021-11-26 09:05] LABS: CREATININE 0.4 mg/dL (0.55-1.3); PHOSPHOROUS 2.8 mg/dL (2.5-4.9)
[2021-11-26 09:06] LABS: BILIRUBIN,TOTAL 0.4 mg/dL (0.2-1); TOT PROT 6.7 g/dl (6.4-8.2)
[2021-11-26] MEDS: ANASTROZOLE 1 MG TABLET PO SCH (10:05)
[2021-11-26] MEDS: LOSARTAN POTASSIUM 50 MG TABLET PO SCH (10:05)
[2021-11-26] MEDS: ROFLUMILAST 500 MCG TABLET PO SCH (10:05)
[2021-11-26] MEDS: DIVALPROEX SODIUM 500 MG TABLET E.C. PO SCH ×2 (10:06→21:12)
[2021-11-26] MEDS: levETIRAcetam 500 MG TABLET (FP) PO SCH ×2 (10:06→21:12)
[2021-11-26] MEDS: BUDESONIDE/FORMETEROL FUMARATE 160/4.5 mcg INHALER IH SCH ×2 (10:06→21:13)
[2021-11-26] MEDS: TIOTROPIUM BROMIDE 2.5 MCG (SPIRIVA) RESPIMAT INHALER IH SCH (10:07)
[2021-11-26] MEDS: ACETAMINOPHEN 325 MG TABLET (FP) PO PRN (21:12)
[2021-11-27] MEDS: methylPREDNISolone NA SUCC 40 MG/1 ML VIAL IVPUSH SCH ×3 (01:52→18:13)
[2021-11-27] MEDS: morphine SULFATE 4 MG/ML VIAL IVPUSH PRN ×3 (04:56→17:52)
[2021-11-27] MEDS: GABAPENTIN 250 MG/5 ML ORAL SOLUTION, 470 ML BOTTLE PO SCH ×3 (06:16→21:40)
[2021-11-27] MEDS: LEVOTHYROXINE NA 125 MCG TABLET (FP) PO SCH (06:16)
[2021-11-27] MEDS: ALBUTEROL SO4 2.5/IPRATROPIUM 0.5 INH SOL 3 ML VIAL.NEB. NEB SCH ×4 (07:40→20:22)
[2021-11-27] MEDS: levETIRAcetam 500 MG TABLET (FP) PO SCH ×2 (09:59→21:40)
[2021-11-27] MEDS: DIVALPROEX SODIUM 500 MG TABLET E.C. PO SCH ×2 (09:59→21:40)
[2021-11-27] MEDS: ANASTROZOLE 1 MG TABLET PO SCH (09:59)
[2021-11-27] MEDS: LOSARTAN POTASSIUM 50 MG TABLET PO SCH (09:59)
[2021-11-27] MEDS: FLUTICASONE/UMECLIDIN/VILANTER(200-62.5-25 TRELEGY ELLIPTA) INAHLER IH SCH (10:04)
[2021-11-27] MEDS: ROFLUMILAST 500 MCG TABLET PO SCH (10:04)
[2021-11-27] MEDS: ACETAMINOPHEN 325 MG TABLET (FP) PO PRN (12:29)
[2021-11-27] MEDS ORDERED: DOCUSATE SODIUM 100 MG CAPSULE (FP) PO PRN (18:50)
[2021-11-27] MEDS: oxyCODONE HCL 5 MG TABLET PO PRN (21:43)
[2021-11-28] MEDS: ACETAMINOPHEN 325 MG TABLET (FP) PO PRN ×2 (01:56→11:46)
[2021-11-28] MEDS: methylPREDNISolone NA SUCC 40 MG/1 ML VIAL IVPUSH SCH ×3 (02:30→17:44)
[2021-11-28] MEDS: GABAPENTIN 250 MG/5 ML ORAL SOLUTION, 470 ML BOTTLE PO SCH (06:00)
[2021-11-28] MEDS: LEVOTHYROXINE NA 125 MCG TABLET (FP) PO SCH (06:01)
[2021-11-28] MEDS: ALBUTEROL SO4 2.5/IPRATROPIUM 0.5 INH SOL 3 ML VIAL.NEB. NEB SCH ×4 (08:58→21:23)
[2021-11-28] MEDS: levETIRAcetam 500 MG TABLET (FP) PO SCH ×2 (09:39→21:49)
[2021-11-28] MEDS: DIVALPROEX SODIUM 500 MG TABLET E.C. PO SCH ×2 (09:39→21:49)
[2021-11-28] MEDS: ROFLUMILAST 500 MCG TABLET PO SCH (09:40)
[2021-11-28] MEDS: LOSARTAN POTASSIUM 50 MG TABLET PO SCH (09:40)
[2021-11-28] MEDS: ANASTROZOLE 1 MG TABLET PO SCH (09:41)
[2021-11-28] MEDS: oxyCODONE HCL 5 MG TABLET PO PRN ×3 (09:50→23:17)
[2021-11-28] MEDS: FLUTICASONE/UMECLIDIN/VILANTER(200-62.5-25 TRELEGY ELLIPTA) INAHLER IH SCH (10:01)
[2021-11-28] MEDS ORDERED: ENOXAPARIN NA (PORCINE) 40 MG/0.4 ML DISP.SYRIN SQ SCH (10:45)
[2021-11-28 13:08] LABS: HEMATOCRIT 41.6 % (32.4-45.2); MCH 31.4 pg (25.7-33.7); MCHC 33.8 g/dl (32.0-36.0); MEAN PLT VOLUME 7.1 fl (7.5-11.1); PLATELET COUNT 283 10^3/uL (134-434); RBC 4.47 M/mm3 (3.60-5.2); RDW 14.8 % (11.6-15.6); WHITE BLOOD COUNT 11.9 K/mm3 (4.0-10.0)
[2021-11-28 13:30] LABS: BLOOD UREA NITROGEN 19.2 mg/dL (7-18); CALCIUM 9.4 mg/dL (8.5-10.1)
[2021-11-28 13:34] LABS: CREATININE 0.4 mg/dL (0.55-1.3)
[2021-11-28] MEDS: GABAPENTIN 300 MG CAPSULE PO SCH ×2 (15:08→21:49)
[2021-11-29] MEDS: methylPREDNISolone NA SUCC 40 MG/1 ML VIAL IVPUSH SCH ×3 (02:40→21:30)
[2021-11-29] MEDS: GABAPENTIN 300 MG CAPSULE PO SCH ×3 (05:43→21:26)
[2021-11-29] MEDS: LEVOTHYROXINE NA 125 MCG TABLET (FP) PO SCH (06:23)
[2021-11-29] MEDS: oxyCODONE HCL 5 MG TABLET PO PRN ×3 (06:41→21:24)
[2021-11-29] MEDS: ALBUTEROL SO4 2.5/IPRATROPIUM 0.5 INH SOL 3 ML VIAL.NEB. NEB SCH ×4 (08:00→19:25)
[2021-11-29 08:31] LABS: HEMATOCRIT 40.3 % (32.4-45.2); HEMOGLOBIN 13.2 GM/dL (10.7-15.3); MCH 30.6 pg (25.7-33.7); MCHC 32.7 g/dl (32.0-36.0); MEAN CELL VOLUME 93.8 fl (80-96); MEAN PLT VOLUME 6.9 fl (7.5-11.1); PLATELET COUNT 291 10^3/uL (134-434); RBC 4.29 M/mm3 (3.60-5.2); RDW 14.6 % (11.6-15.6); WHITE BLOOD COUNT 12.6 K/mm3 (4.0-10.0)
[2021-11-29 08:57] LABS: CALCIUM 9.1 mg/dL (8.5-10.1)
[2021-11-29 08:58] LABS: BLOOD UREA NITROGEN 17.4 mg/dL (7-18)
[2021-11-29 09:01] LABS: CREATININE 0.4 mg/dL (0.55-1.3)
[2021-11-29] MEDS: ANASTROZOLE 1 MG TABLET PO SCH (10:49)
[2021-11-29] MEDS: ROFLUMILAST 500 MCG TABLET PO SCH (10:49)
[2021-11-29] MEDS: LOSARTAN POTASSIUM 50 MG TABLET PO SCH (10:49)
[2021-11-29] MEDS: levETIRAcetam 500 MG TABLET (FP) PO SCH ×2 (10:49→21:24)
[2021-11-29] MEDS: DIVALPROEX SODIUM 500 MG TABLET E.C. PO SCH ×2 (10:49→21:25)
[2021-11-29] MEDS: FLUTICASONE/UMECLIDIN/VILANTER(200-62.5-25 TRELEGY ELLIPTA) INAHLER IH SCH (10:51)
[2021-11-29] MEDS ORDERED: ALPRAZolam 0.25 MG TABLET PO PRN (19:45)
[2021-11-30] MEDS: GABAPENTIN 300 MG CAPSULE PO SCH ×2 (05:49→14:30)
[2021-11-30] MEDS: oxyCODONE HCL 5 MG TABLET PO PRN ×2 (05:49→14:57)
[2021-11-30 05:52] VITALS: TEMP 98.9
[2021-11-30] MEDS: ALBUTEROL SO4 2.5/IPRATROPIUM 0.5 INH SOL 3 ML VIAL.NEB. NEB SCH ×3 (07:21→15:22)
[2021-11-30 09:45] LABS: HEMATOCRIT 41.6 % (32.4-45.2); HEMOGLOBIN 14.1 GM/dL (10.7-15.3); MCH 31.4 pg (25.7-33.7); MCHC 33.9 g/dl (32.0-36.0); MEAN CELL VOLUME 92.8 fl (80-96); MEAN PLT VOLUME 6.6 fl (7.5-11.1); PLATELET COUNT 288 10^3/uL (134-434); RBC 4.49 M/mm3 (3.60-5.2); RDW 14.8 % (11.6-15.6); WHITE BLOOD COUNT 11.9 K/mm3 (4.0-10.0)
[2021-11-30] MEDS: LOSARTAN POTASSIUM 50 MG TABLET PO SCH (10:06)
[2021-11-30] MEDS: ROFLUMILAST 500 MCG TABLET PO SCH (10:06)
[2021-11-30] MEDS: levETIRAcetam 500 MG TABLET (FP) PO SCH (10:06)
[2021-11-30] MEDS: DIVALPROEX SODIUM 500 MG TABLET E.C. PO SCH (10:06)
[2021-11-30] MEDS: methylPREDNISolone NA SUCC 40 MG/1 ML VIAL IVPUSH SCH (10:06)
[2021-11-30] MEDS: ANASTROZOLE 1 MG TABLET PO SCH (10:06)
[2021-11-30] MEDS: FLUTICASONE/UMECLIDIN/VILANTER(200-62.5-25 TRELEGY ELLIPTA) INAHLER IH SCH (10:07)
[2021-11-30 10:09] LABS: ALBUMIN 3.5 g/dl (3.4-5.0); BLOOD UREA NITROGEN 16.3 mg/dL (7-18); MAGNESIUM 2.4 mg/dL (1.8-2.4)
[2021-11-30 10:13] LABS: CREATININE 0.5 mg/dL (0.55-1.3); PHOSPHOROUS 3.7 mg/dL (2.5-4.9)
[2021-11-30 10:14] LABS: BILIRUBIN,TOTAL 0.5 mg/dL (0.2-1)
[2021-11-30 10:15] LABS: TOT PROT 6.6 g/dl (6.4-8.2)
[2021-11-30 10:51] LABS: ANISOCYTOSIS 0; HELMET CELLS 0; HOWELL-JOLLY BODIES 0; MACROCYTOSIS 0; OVALOCYTE 0; ROULEAU 0; SICKELED CELLS 0; TARGET CELLS 0; TEAR DROP CELLS 0; TOXIC GRANULATION 0
[2021-11-30 15:00] VITALS: BP 114/68; PULSE 91
== END 2021-11-30 16:40 | disposition home or self-care (01) | DRG 200 ==
LOC: JRADIR 04:47 → J2C 12:30 → J8W 14:41
PROVIDERS: ADMIT Internal Medicine; ATTEND Internal Medicine
PROC: 0W9B30Z Drainage of Left Pleural Cavity with Drainage Device, Percutaneous Approach (ICD-10-PCS; 2021-11-22)
PROC: 0BBG3ZX Excision of Left Upper Lung Lobe, Percutaneous Approach, Diagnostic (ICD-10-PCS; principal; 2021-11-22 10:00)
DX: J95.811 Postprocedural pneumothorax (principal); J96.11 Chronic respiratory failure with hypoxia; J44.1 Chronic obstructive pulmonary disease with (acute) exacerbation; C78.02 Secondary malignant neoplasm of left lung; E03.9 Hypothyroidism, unspecified; G40.909 Epilepsy, unspecified, not intractable, without status epilepticus; I10 Essential (primary) hypertension; K21.9 Gastro-esophageal reflux disease without esophagitis; M51.86 Other intervertebral disc disorders, lumbar region; C50.911 Malignant neoplasm of unspecified site of right female breast; M51.37 Other intervertebral disc degeneration, lumbosacral region; M51.34 Other intervertebral disc degeneration, thoracic region
CPT/HCPCS: 32408; 32557; 36415; 70553-TC; 71045-TC-FY; 71046-TC-FY; 77012-TC; 80048; 80053; 83735; 84100; 85025; 85027; 88305-TC; 93306-TC; 94640; 94760; 94761; 97116-GP; 97161-GP; C1729; C1769; C1887; C9803-CS; U0003; U0005

== ENCOUNTER 2021-12-06 22:23 | Observation (INO) | payer BC, OTHER ==
[2021-12-06] MEDS ORDERED: ACETAMINOPHEN INJECTION 100 ML IVPB ONE (23:20)
[2021-12-06] MEDS ORDERED: SODIUM CHLORIDE 0.9% 500 ML INFUS.BAG IV ONE (23:20)
[2021-12-06] MEDS ORDERED: ACETAMINOPHEN 1000 MG/100 ML BAG IVPB ONE (23:20)
[2021-12-06] MEDS ORDERED: METOCLOPRAMIDE HCL INJECTION 10 MG/2 ML VIAL IVPB ONE (23:20)
[2021-12-06] MEDS ORDERED: METOCLOPRAMIDE HCL INJECTION 10 MG/2 ML VIAL ONE (23:20)
[2021-12-06 23:53] LABS: HEMATOCRIT 38.9 % (32.4-45.2); HEMOGLOBIN 13.1 GM/dL (10.7-15.3); MCH 31.4 pg (25.7-33.7); MCHC 33.7 g/dl (32.0-36.0); MEAN PLT VOLUME 6.2 fl (7.5-11.1); PLATELET COUNT 256 10^3/uL (134-434); RBC 4.18 M/mm3 (3.60-5.2); RDW 14.8 % (11.6-15.6); WHITE BLOOD COUNT 17.3 K/mm3 (4.0-10.0)
[2021-12-07 00:03] LABS: ACTIVATED PTT 25.1 SECONDS (25.2-36.5); INR 0.91 (0.83-1.09); PROTHROMBIN TIME (PATIENT) 10.4 SEC (9.7-13.0)
[2021-12-07 00:12] LABS: CALCIUM 8.9 mg/dL (8.5-10.1)
[2021-12-07 00:13] LABS: ALBUMIN 3.2 g/dl (3.4-5.0); BLOOD UREA NITROGEN 16.6 mg/dL (7-18); MAGNESIUM 2.3 mg/dL (1.8-2.4)
[2021-12-07 00:16] LABS: CREATININE 0.4 mg/dL (0.55-1.3)
[2021-12-07 00:17] LABS: BILIRUBIN,TOTAL 0.3 mg/dL (0.2-1)
[2021-12-07] MEDS ORDERED: ALBUTEROL SO4 HFA INHALER IH PRN ×2 (04:17→07:47)
[2021-12-07] MEDS ORDERED: ACETAMINOPHEN 325 MG TABLET (FP) PO PRN (04:22)
[2021-12-07] MEDS ORDERED: ALBUTEROL SO4 0.083% IH SOL 2.5 MG/3 ML VIAL.NEB. NEB SCH ×2 (04:30→10:00)
[2021-12-07] MEDS ORDERED: ALBUTEROL SO4 0.083% IH SOL 2.5 MG/3 ML VIAL.NEB. NEB ONE (04:38)
[2021-12-07] MEDS: ALBUTEROL SO4 0.083% IH SOL 2.5 MG/3 ML VIAL.NEB. NEB SCH ×5 (04:44→20:29)
[2021-12-07] MEDS: GABAPENTIN 300 MG CAPSULE PO SCH ×3 (06:18→21:29)
[2021-12-07] MEDS ORDERED: LEVOTHYROXINE NA 125 MCG TABLET (FP) PO SCH (07:00)
[2021-12-07 07:13] VITALS: BMI 31.6
[2021-12-07 07:31] LABS: BASO % 0.1 % (0-2.0); EOS % 0.3 % (0-4.5); HEMATOCRIT 38.3 % (32.4-45.2); HEMOGLOBIN 12.6 GM/dL (10.7-15.3); LYMPH % 28.8 % (8-40); MCH 31.2 pg (25.7-33.7); MEAN CELL VOLUME 94.6 fl (80-96); MEAN PLT VOLUME 6.7 fl (7.5-11.1); MONO % 8.5 % (3.8-10.2); NEUT % 62.3 % (42.8-82.8); PLATELET COUNT 242 10^3/uL (134-434); RBC 4.06 M/mm3 (3.60-5.2); WHITE BLOOD COUNT 15.3 K/mm3 (4.0-10.0)
[2021-12-07 07:45] LABS: CALCIUM 8.1 mg/dL (8.5-10.1)
[2021-12-07 07:46] LABS: MAGNESIUM 2.2 mg/dL (1.8-2.4)
[2021-12-07 07:48] LABS: ALBUMIN 2.8 g/dl (3.4-5.0)
[2021-12-07 07:50] LABS: CREATININE 0.5 mg/dL (0.55-1.3)
[2021-12-07 07:51] LABS: PHOSPHOROUS 2.6 mg/dL (2.5-4.9); TOT PROT 5.3 g/dl (6.4-8.2)
[2021-12-07 07:52] LABS: BILIRUBIN,TOTAL 0.4 mg/dL (0.2-1)
[2021-12-07] MEDS: levETIRAcetam 500 MG TABLET (FP) PO SCH ×2 (09:28→21:29)
[2021-12-07] MEDS ORDERED: ANASTROZOLE 1 MG TABLET PO SCH (10:00)
[2021-12-07] MEDS ORDERED: TIOTROPIUM BROMIDE 2.5 MCG (SPIRIVA) RESPIMAT INHALER IH SCH (10:00)
[2021-12-07] MEDS ORDERED: ENOXAPARIN NA (PORCINE) 40 MG/0.4 ML DISP.SYRIN SQ SCH (10:00)
[2021-12-07] MEDS ORDERED: predniSONE 10 MG TABLET (UD) PO SCH (10:00)
[2021-12-07] MEDS ORDERED: ROFLUMILAST 500 MCG TABLET PO SCH (10:00)
[2021-12-07] MEDS ORDERED: LOSARTAN POTASSIUM 50 MG TABLET PO SCH (10:00)
[2021-12-07] MEDS: BUDESONIDE/FORMETEROL FUMARATE 160/4.5 mcg INHALER IH SCH ×2 (10:29→21:29)
[2021-12-07] MEDS: DIVALPROEX SODIUM 500 MG TABLET E.C. PO SCH ×2 (11:26→21:29)
[2021-12-07 17:24] LABS: PH,URINE 7.5 (5.0-8.0); URINE APPEARANCE CLEAR; URINE BILIRUBIN NEGATIVE (NEGATIVE); URINE COLOR YELLOW; URINE GLUCOSE (UA) TRACE (NEGATIVE); URINE KETONE NEGATIVE (NEGATIVE); URINE LEUK ESTERASE NEGATIVE (NEGATIVE); URINE NITRITE NEGATIVE (NEGATIVE); URINE PROTEIN NEGATIVE (NEGATIVE)
[2021-12-07 18:36] VITALS: TEMP 98.7
[2021-12-07 22:57] VITALS: BP 145/72; PULSE 79
[2021-12-10] MEDS ORDERED: predniSONE 20 MG TABLET (UD) PO SCH (10:00)
[2021-12-13] MEDS ORDERED: predniSONE 10 MG TABLET (UD) PO SCH (10:00)
== END 2021-12-07 22:58 | disposition home or self-care (01) ==
LOC: JER 22:23 → JERBED 23:08 → INTOOBSV 23:08 → J4W 12-07 05:37
PROVIDERS: ADMIT Internal Medicine; ATTEND Internal Medicine
PROC: 3E033NZ Introduction of Analgesics, Hypnotics, Sedatives into Peripheral Vein, Percutaneous Approach (ICD-10-PCS; principal; 2021-12-06)
PROC: 3E0F7GC Introduction of Other Therapeutic Substance into Respiratory Tract, Via Natural or Artificial Opening (ICD-10-PCS; 2021-12-06)
PROC: 3E023GC Introduction of Other Therapeutic Substance into Muscle, Percutaneous Approach (ICD-10-PCS; 2021-12-06)
PROC: 3E033GC Introduction of Other Therapeutic Substance into Peripheral Vein, Percutaneous Approach (ICD-10-PCS; 2021-12-06)
DX: R51.9 Headache, unspecified (principal); G40.909 Epilepsy, unspecified, not intractable, without status epilepticus; K21.9 Gastro-esophageal reflux disease without esophagitis; J44.9 Chronic obstructive pulmonary disease, unspecified; Z85.3 Personal history of malignant neoplasm of breast; I10 Essential (primary) hypertension; E03.9 Hypothyroidism, unspecified; Z99.81 Dependence on supplemental oxygen; D72.829 Elevated white blood cell count, unspecified; E66.8 Other obesity; Z87.891 Personal history of nicotine dependence; Z68.31 Body mass index [BMI] 31.0-31.9, adult
CPT/HCPCS: 36415; 70450-TC; 71045-TC-FY; 80053; 80061; 81003; 83735; 84100; 84484; 85025; 85610; 85730; 87086; 93005; 93010; 94640; 96372; 96374; 96375; 97116-GP; 97161-GP; 99285-25; C9803-CS; G0378; U0003; U0005